=== PATIENT | female | born 1985 | race Caucasian/White ===

== ENCOUNTER 2016-11-08 13:21 | Emergency (ER) | payer OTHER ==
[2016-11-08] MEDS ORDERED: SODIUM CHLORIDE 0.9% 500 ML IV STA (14:12)
--- NOTE | 2016-11-08 14:16 | ED ---
Female Urogenital HPI - General Chief complaint: Vaginal Bleeding Stated complaint: early , spotting Time Seen by Provider: 11/08/16 14:07 Source: patient, RN notes reviewed Mode of arrival: ambulatory Limitations: no limitations - History of Present Illness Initial comments: 31-year-old female presents to the emergency department with a chief complaint of vaginal bleeding in . Patient states she's belly weeks . Patient states she is . Patient states she has been red blood today. Patient states she has been having some achiness in the abdomen as well. Patient denies any nausea vomiting fever or chills. Patient seen changes in urination. Patient states she was concerned due to the blood so she thought that she should be evaluated.Patient denies any recent fever, chills, shortness of breath, chest pain, back pain, nausea vomiting, numbness or tingling, dysuria or hematuria, constipation or diarrhea, headaches or visual changes, or any other current symptoms. - Related Data Home Medications Medication Instructions Recorded Confirmed #79/Iron Asp Gly/FA#1 1 tab PO DAILY 04/19/16 11/08/16 [Prenate Elite Tablet] Acetaminophen/Diphenhydramine 1 tab PO HS PRN 11/08/16 11/08/16 [Tylenol PM 500-25mg] Calcium Carbonate [Tums] 1,000 mg PO TID PRN 11/08/16 11/08/16 Allergies Allergy/AdvReac Type Severity Reaction Status Date / Time peanut Allergy Unknown Verified 11/08/16 14:19 shellfish derived [Shellfish] Allergy Verified 11/08/16 14:19 tree nut Allergy Unknown Verified 11/08/16 14:19 Review of Systems ROS Statement: Those systems with pertinent positive or pertinent negative responses have been documented in the HPI. ROS Other: All systems not noted in ROS Statement are negative. Past Medical History Past Medical History: No Reported History History of Any Multi-Drug Resistant Organisms: None Reported Past Surgical History: No Surgical Hx Reported Past Psychological History: No Psychological Hx Reported Smoking Status: Never smoker Past Alcohol Use History: None Reported Past Drug Use History: None Reported General Exam - General Exam Comments Initial Comments: General: The patient is awake and alert, in no distress, and does not appear acutely ill. Eye: Pupils are equal, round and reactive to light, extra-ocular movements are intact; there is normal conjunctiva bilaterally. No signs of icterus. Ears, nose, mouth and throat: There are moist mucous membranes and no oral lesions. Neck: The neck is supple, there is no tenderness. Cardiovascular: There is a regular rate and rhythm. No murmur, rub or gallop is appreciated. Respiratory: Lungs are clear to auscultation, respirations are non-labored, breath sounds are equal. No wheezes, stridor, rales, or rhonchi. Gastrointestinal: Soft, non-distended, non-tender abdomen without masses or organomegaly noted. There is no rebound or guarding present. No CVA tenderness. Bowel sounds are unremarkable. Back: There is no tenderness to palpation in the midline. There is no obvious deformity. No rashes noted. Musculoskeletal: Normal ROM, no tenderness, There is no pedal edema. There is no calf tenderness or swelling. Sensation intact. Pulses equal bilaterally 2+. Neurological: CN II-XII intact, There are no obvious motor or sensory deficits. Coordination appears grossly intact. Speech is normal. Skin: Skin is warm and dry and no rashes or lesions are noted. Psychiatric: Cooperative, appropriate mood & affect, normal judgment. Limitations: no limitations External exam: Present: normal external exam Speculum exam: Present: vaginal bleeding (Moderate), other (Was closed) Course Vital Signs 11/08/16 14:04 Temperature 98.5 F Pulse Rate 65 Respiratory 18 Rate Blood Pressure 130/64 O2 Sat by Pulse 100 Oximetry Medical Decision Making - Medical Decision Making 31-year-old female presents to the emergency department with a chief complaint of vaginal bleeding in . At this time patient's lab work and ultrasound was reviewed that showed a IUP. At this time we did discuss Tylenol for pain control and follow-up with [facility]. We discussed this is most likely threatened miscarriage and appropriate follow-up with her doctor. Patient stated that she understood all her questions have been answered. This time she will be discharged. - Lab Data Result diagrams: 11/08/16 14:39 11/08/16 14:39 Lab Results 11/08/16 11/08/16 11/08/16 Range/Units 14:39 14:39 14:39 WBC 10.4 (3.8-10.6) k/uL RBC 3.98 (3.80-5.40) m/uL Hgb 12.3 (11.4-16.0) gm/dL Hct 36.7 (34.0-46.0) % MCV 92.3 (80.0-100.0) fL MCH 30.8 (25.0-35.0) pg MCHC 33.4 (31.0-37.0) g/dL RDW 12.6 (11.5-15.5) % Plt Count 248 (150-450) k/uL Neutrophils % 79 % Lymphocytes % 15 % Monocytes % 5 % Eosinophils % 1 % Basophils % 0 % Neutrophils # 8.2 H (1.3-7.7) k/uL Lymphocytes # 1.5 (1.0-4.8) k/uL Monocytes # 0.5 (0-1.0) k/uL Eosinophils # 0.1 (0-0.7) k/uL Basophils # 0.0 (0-0.2) k/uL Sodium 138 (137-145) mmol/L Potassium 3.9 (3.5-5.1) mmol/L Chloride 104 (98-107) mmol/L Carbon Dioxide 21 L (22-30) mmol/L Anion Gap 13 mmol/L BUN 6 L (7-17) mg/dL Creatinine 0.48 L (0.52-1.04) mg/dL Est GFR (MDRD) Af Amer >60 (>60 ml/min/1.73 sqM) Est GFR (MDRD) Non-Af >60 (>60 ml/min/1.73 sqM) Glucose 83 (74-99) mg/dL Calcium 9.2 (8.4-10.2) mg/dL Total Bilirubin 0.5 (0.2-1.3) mg/dL AST 25 (14-36) U/L ALT 42 (9-52) U/L Alkaline Phosphatase 49 (38-126) U/L Total Protein 7.8 (6.3-8.2) g/dL Albumin 4.3 (3.5-5.0) g/dL HCG, Quant 732842.0 mIU/mL Urine Color Urine Appearance (Clear) Urine pH (5.0-8.0) Ur Specific [place] (1.001-1.035) Urine Protein (Negative) Urine Glucose (UA) (Negative) Urine Ketones (Negative) Urine Blood (Negative) Urine Nitrate (Negative) Urine Bilirubin (Negative) Urine Urobilinogen (<2.0) mg/dL Ur Leukocyte Esterase (Negative) Urine RBC (0-5) /hpf Urine WBC (0-5) /hpf Ur Squamous Epith Cells (0-4) /hpf Urine Bacteria (None) /hpf Urine Mucus (None) /hpf Urine HCG, Qual (Not Detectd) Blood Type A Positive Blood Type Recheck No 11/08/16 11/08/16 Range/Units 15:30 16:03 WBC (3.8-10.6) k/uL RBC (3.80-5.40) m/uL Hgb (11.4-16.0) gm/dL Hct (34.0-46.0) % MCV (80.0-100.0) fL MCH (25.0-35.0) pg MCHC (31.0-37.0) g/dL RDW (11.5-15.5) % Plt Count (150-450) k/uL Neutrophils % % Lymphocytes % % Monocytes % % Eosinophils % % Basophils % % Neutrophils # (1.3-7.7) k/uL Lymphocytes # (1.0-4.8) k/uL Monocytes # (0-1.0) k/uL Eosinophils # (0-0.7) k/uL Basophils # (0-0.2) k/uL Sodium (137-145) mmol/L Potassium (3.5-5.1) mmol/L Chloride (98-107) mmol/L Carbon Dioxide (22-30) mmol/L Anion Gap mmol/L BUN (7-17) mg/dL Creatinine (0.52-1.04) mg/dL Est GFR (MDRD) Af Amer (>60 ml/min/1.73 sqM) Est GFR (MDRD) Non-Af (>60 ml/min/1.73 sqM) Glucose (74-99) mg/dL Calcium (8.4-10.2) mg/dL Total Bilirubin (0.2-1.3) mg/dL AST (14-36) U/L ALT (9-52) U/L Alkaline Phosphatase (38-126) U/L Total Protein (6.3-8.2) g/dL Albumin (3.5-5.0) g/dL HCG, Quant mIU/mL Urine Color Yellow Urine Appearance Clear (Clear) Urine pH 6.5 (5.0-8.0) Ur Specific [place] 1.017 (1.001-1.035) Urine Protein Negative (Negative) Urine Glucose (UA) Negative (Negative) Urine Ketones 2+ H (Negative) Urine Blood Large H (Negative) Urine Nitrate Negative (Negative) Urine Bilirubin Negative (Negative) Urine Urobilinogen <2.0 (<2.0) mg/dL Ur Leukocyte Esterase Negative (Negative) Urine RBC 12 H (0-5) /hpf Urine WBC 1 (0-5) /hpf Ur Squamous Epith Cells 1 (0-4) /hpf Urine Bacteria Rare H (None) /hpf Urine Mucus Occasional H (None) /hpf Urine HCG, Qual Detected (Not Detectd) Blood Type Blood Type Recheck - Radiology Data Radiology results: report reviewed, image reviewed Disposition Clinical Impression: Threatened Disposition: HOME SELF-CARE Condition: Stable Instructions: Threatened Miscarriage (ED) Additional Instructions: Please use medication as discussed. Please follow up with family doctor if symptoms have not improved over the next two days. Please return to the emergency room if your symptoms increase or worsen or for any other concerns. Referrals: Thiago Everett DO [Primary Care Provider] - 1-2 days Time of Disposition: 17:24
[2016-11-08 14:52] LABS: Basophils % (A) 0 %; CH 31.6; CHCM 34.4; Eosinophils # (A) 0.1 k/uL (0-0.7); Eosinophils % (A) 1 %; HCT 36.7 % (34.0-46.0); HDW 2.28; HGB 12.3 gm/dL (11.4-16.0); Luc # (Auto) 0.07; Luc % (Auto) 1; Lymphocytes # (A) 1.5 k/uL (1.0-4.8); Lymphocytes % (A) 15 %; MCH 30.8 pg (25.0-35.0); MCHC 33.4 g/dL (31.0-37.0); MCV 92.3 fL (80.0-100.0); Mean Platelet Volume 7.6; Monocytes # (A) 0.5 k/uL (0-1.0); Monocytes % (A) 5 %; Neutrophils # (A) 8.2 k/uL (1.3-7.7); Neutrophils % (A) 79 %; RBC 3.98 m/uL (3.80-5.40); RDW 12.6 % (11.5-15.5); WBC 10.4 k/uL (3.8-10.6); WBC (Perox) 10.39
[2016-11-08 15:03] LABS: ALT 42 U/L (9-52); AST 25 U/L (14-36); Alkaline Phosphatase 49 U/L (38-126); Anion Gap 13 mmol/L; Blood Urea Nitrogen 6 mg/dL (7-17); Calcium 9.2 mg/dL (8.4-10.2); Carbon Dioxide 21 mmol/L (22-30); Chloride 104 mmol/L (98-107); Glucose 83 mg/dL (74-99); Non-African American GFR(MDRD) >60 (>60 ml/min/1.73 sqM); Potassium 3.9 mmol/L (3.5-5.1); Sodium 138 mmol/L (137-145); Total Bilirubin 0.5 mg/dL (0.2-1.3); Total Protein 7.8 g/dL (6.3-8.2)
--- NOTE | 2016-11-08 16:08 | US ---
EXAMINATION TYPE: US OB <= 14 wk fetus DATE OF EXAM: 11/08/2016 3:46 PM COMPARISON: NONE CLINICAL HISTORY: Pain. Spotting, cramping EXAM PERFORMED: Transabdominal (TA) EXAM MEASUREMENTS: GESTATIONAL AGE / DATING Dates by LMP: (7 weeks/3 days) EDC: 06/24/2017 Dates by Current Scan: ( 8 weeks/1 days) EDC: 06/19/2017 MATERNAL ANATOMY Uterus: 9.6 x 6.1 x 5.8 cm Right Ovary: 3.1 x 2.3 x 1.7 cm Left Ovary: 2.3 x 1.6 x 1.5 cm Post CDS / Adnexa: no free fluid GESTATION / SURVEY CRL: 1.7 cm (8 weeks/1 days) MSD: not measured Yolk Sac (normal less than 6mm): 2.6 mm Heart Rate: 174 bpm Rhythm: Normal IUP: Viable IUP Date of LMP: 09/17/2016, G1 Beta HcG (if available): not available TECHNOLOGIST IMPRESSION: Live IUP measuring 8 weeks 1 day. Midline fibroid= 1.4 x 1.3 x 1.1 cm Grayscale, color Doppler imaging performed of the ovaries. There is color flow to the ovaries. IMPRESSION: Single viable intrauterine corresponding to ultrasound age 8 weeks 1 day with estimated juanito e of delivery second of June 2017. There may be a small fibroid.
[2016-11-08 16:17] LABS: Appearance,Urine Clear (Clear); Bacteria,Urine Rare /hpf; Bilirubin,Urine Negative (Negative); Glucose,Urine (UA) Negative (Negative); Ketones,Urine 2+ (Negative); Leukocyte Esterase,Urine Negative (Negative); Mucus,Urine Occasional /hpf; Nitrite,Urine Negative (Negative); PH, Urine 6.5 (5.0-8.0); Particle Count 3690; Protein,Urine Negative (Negative); RBC,Urine 12 /hpf (0-5); Specific Gravity,Urine 1.017 (1.001-1.035); Squamous Epithelial Cell,Urine 1 /hpf (0-4); UA Billing (MACRO vs. MICRO) MICRO; Urobilinogen,Urine <2.0 mg/dL (<2.0); WBC,Urine 1 /hpf (0-5)
[2016-11-08 16:29] VITALS: TEMP 98.5
[2016-11-08 17:38] VITALS: BP 130/77; PULSE 79; RESP 16
== END 2016-11-08 17:39 | disposition home or self-care (01) ==
LOC: EC 13:21
DX: O20.0 Threatened abortion (principal); Z3A.08 8 weeks gestation of pregnancy; Z91.013 Allergy to seafood; Z91.010 Allergy to peanuts; Z91.018 Allergy to other foods
CPT/HCPCS: 36415; 76801; 80053; 81001; 81025; 84702; 85025; 86900; 86901; 87086; 96360; 96361; 99284

== ENCOUNTER 2017-01-19 18:32 | Emergency (ER) | payer BC, OTHER ==
[2017-01-19 19:30] VITALS: RESP 18
[2017-01-19] MEDS ORDERED: METOCLOPRAMIDE 5 MG/ML 2 ML VIAL IVP STA (21:46)
[2017-01-19] MEDS ORDERED: ACETAMINOPHEN IV (For NPO) 1,000 MG in SALINE 1 100ML.BAG IVPB STA (21:46)
[2017-01-19] MEDS ORDERED: SODIUM CHLORIDE 0.9% 1,000 ML IV STA (21:46)
--- NOTE | 2017-01-19 21:50 | ED ---
General Adult HPI - General Chief complaint: Headache Stated complaint: headache Time Seen by Provider: 01/19/17 21:42 Source: patient, RN notes reviewed Mode of arrival: ambulatory Limitations: no limitations - History of Present Illness Initial comments: Patient is a pleasant 31-year-old female presenting to the emergency Department with complaints of headache. Headache is more posterior. Headache started around 6 AM this morning. Headache has been waxing and waning however has been somewhat increasing since around 4:30. Headache is positional. Mild photophobia. No nausea except her chronic nausea with . Patient is 17 weeks gravid. No confusion. No weakness. Patient has not taking any medication at home for this. Patient does have a history of associated headaches. Discomfort is currently rated 5/10. No pelvic pain or vaginal bleeding. - Related Data Home Medications Medication Instructions Recorded Confirmed #79/Iron Asp Gly/FA#1 1 tab PO HS 04/19/16 01/19/17 [Prenate Elite Tablet] Acetaminophen Tab [Tylenol Tab] 325 - 650 mg PO Q6H PRN 01/19/17 01/19/17 Metoclopramide [Reglan] 10 mg PO QID PRN 01/19/17 01/19/17 Allergies Allergy/AdvReac Type Severity Reaction Status Date / Time peanut Allergy Anaphylaxis Verified 01/19/17 22:03 shellfish derived [Shellfish] Allergy Nausea & Verified 01/19/17 22:03 Vomiting & Diarrhea tree nut Allergy Anaphylaxis Verified 01/19/17 22:03 Review of Systems ROS Statement: Those systems with pertinent positive or pertinent negative responses have been documented in the HPI. ROS Other: All systems not noted in ROS Statement are negative. Constitutional: Denies: fever, chills Eyes: Denies: eye pain ENT: Denies: ear pain Respiratory: Denies: cough Cardiovascular: Denies: chest pain Endocrine: Denies: fatigue Gastrointestinal: Denies: abdominal pain Genitourinary: Denies: dysuria Musculoskeletal: Denies: back pain Skin: Denies: rash Neurological: Reports: headache. Denies: weakness, confusion Past Medical History Past Medical History: No Reported History History of Any Multi-Drug Resistant Organisms: None Reported Past Surgical History: No Surgical Hx Reported Past Psychological History: No Psychological Hx Reported Smoking Status: Never smoker Past Alcohol Use History: None Reported Past Drug Use History: None Reported General Exam Limitations: no limitations General appearance: alert, in no apparent distress Head exam: Present: atraumatic Eye exam: Present: normal appearance, PERRL, EOMI ENT exam: Present: normal oropharynx Neck exam: Present: normal inspection. Absent: meningismus Respiratory exam: Present: normal lung sounds bilaterally Cardiovascular Exam: Present: regular rate, normal rhythm GI/Abdominal exam: Present: soft, distended (Consistent with 17 week gravid uterus.). Absent: tenderness Extremities exam: Present: normal inspection Neurological exam: Present: alert, oriented X3, CN II-XII intact. Absent: motor sensory deficit Expanded Speech: Present: fluid speech Cranial nerves: EOM's Intact: Normal Motor strength exam: RUE: 5, LUE: 5, RLE: 5, LLE: 5 Eye Response: (4) open spontaneously Motor Response: (6) obeys commands Verbal Response: (5) oriented Psychiatric exam: Present: normal affect, normal mood Skin exam: Absent: rash Course Vital Signs 01/19/17 19:26 Temperature 97.9 F Pulse Rate 81 Respiratory 18 Rate Blood Pressure 148/71 O2 Sat by Pulse 99 Oximetry Medical Decision Making - Medical Decision Making Patient reevaluated and significantly improved. Patient comfortable discharge. Patient will be discharged pending heart tones Disposition Clinical Impression: Cephalgia Disposition: HOME SELF-CARE Condition: Stable Instructions: Acute Headache (ED) Additional Instructions: Please follow-up with your ENVIRONMENTAL SCIENCE PROFESSOR and primary care physician this week. Return for weakness, confusion, fevers, increased pain, uncontrolled vomiting, worsening symptoms or other concerns. Referrals: None,Stated [Primary Care Provider] - 1-2 days Esteban Constantino MD [STAFF PHYSICIAN] - 1-2 days Lizzeth Cee MD [STAFF PHYSICIAN] - 1-2 days
[2017-01-19 23:18] VITALS: BP 117/68; PULSE 65; TEMP 97.8
== END 2017-01-19 23:27 | disposition home or self-care (01) ==
LOC: EC 18:32
DX: O99.89 Other specified diseases and conditions complicating pregnancy, childbirth and the puerperium (principal); R51 Headache; H53.149 Visual discomfort, unspecified; R11.0 Nausea; Z3A.17 17 weeks gestation of pregnancy; Z79.899 Other long term (current) drug therapy; Z91.013 Allergy to seafood; Z91.018 Allergy to other foods
CPT/HCPCS: 99283; 96374; 96375; 96361; J2765; J0131

== ENCOUNTER 2017-03-11 09:34 | Outpatient (CLI) | payer BC, OTHER ==
[2017-03-11 10:57] LABS: Appearance,Urine Clear (Clear); Bilirubin,Urine Negative (Negative); Glucose,Urine (UA) Negative (Negative); Ketones,Urine Negative (Negative); Leukocyte Esterase,Urine Negative (Negative); Nitrite,Urine Negative (Negative); Protein,Urine Negative (Negative); Specific Gravity,Urine 1.003 (1.001-1.035); UA Billing (MACRO vs. MICRO) CHEM; Urobilinogen,Urine <2.0 mg/dL (<2.0)
[2017-03-11 11:08] VITALS: BP 117/60; PULSE 84; RESP 16; TEMP 97.3
== END 2017-03-11 11:50 | disposition home or self-care (01) ==
LOC: FBPOP 09:34
PROVIDERS: ATTEND Obstetrics & Gynecology
DX: O26.92 Pregnancy related conditions, unspecified, second trimester (principal); Z3A.25 25 weeks gestation of pregnancy
CPT/HCPCS: 81003; 99213

== ENCOUNTER 2017-03-24 15:55 | Outpatient (CLI) | payer BC, OTHER ==
[2017-03-24 17:39] VITALS: BP 136/71; PULSE 83; RESP 16; TEMP 98.3
== END 2017-03-24 17:05 | disposition home or self-care (01) ==
LOC: FBPOP 15:55
PROVIDERS: ATTEND Obstetrics & Gynecology
DX: O26.92 Pregnancy related conditions, unspecified, second trimester (principal); Z3A.26 26 weeks gestation of pregnancy
CPT/HCPCS: 99213

== ENCOUNTER 2017-04-28 14:55 | Outpatient (CLI) | payer BC, OTHER ==
[2017-04-28 16:06] VITALS: BP 135/77; PULSE 100; RESP 20; TEMP 98.6
--- NOTE | 2017-06-25 11:07 | P.MSEPDOC ---
Presenting Problems - Arrival Data Date of Arrival on Unit: 04/28/17 Time of Arrival on Unit: 14:55 Mode of Transport: Ambulatory - Complaint OB-Reason for Admission/Chief Complaint: NST Comment: decreased movement Medical History - Information : 1 Para: 0 Term: 0 : 0 Abortions: Spontaneous or Elective: 0 Number of Living Children: 0 - Gestational Age Expected Date of Delivery: 06/24/17 Gestational Age by APRIL (wks/days): 40 Weeks and 1 Days Review of Systems - Review of Systems Constitutional: No problems Breast: No problems ENT: No problems Cardiovascular: No problems Respiratory: No problems Gastrointestinal: No problems Genitourinary: No problems Musculoskeletal: No problems Neurological: No problems Skin: No problems Vital Signs - Temperature Temperature: 98.6 F Temperature Source: Oral - Pulse Brachial Pulse Rate: 100 Pulse Assessment Method: Automatic Cuff - Respirations Respiratory Rate: 20 Oxygen Delivery Method: Room Air O2 Sat by Pulse Oximetry: 98 - Blood Pressure Right Arm Blood Pressure: 135/77 Blood Pressure Mean: 96 Blood Pressure Source: Automatic Cuff Medical Screen Scoring (Pre) - Cervical Exam Dilation: Exam Deferred Effacement: Exam Deferred Membranes: Intact - Uterine Contractions Frequency: N/A Duration: N/A Intensity: N/A - Maternal Vital Signs Maternal Temperature: N/A Maternal Blood Pressure: N/A Signs of Preeclampsia: N/A Maternal Respirations: N/A - Maternal Trauma Maternal Trauma: N/A - Assessment Baseline FHR: 140 Heart Rate - NICHD Category: Category I (Normal) = 0 NST: Reactive Position: N/A Station: N/A - Total Score Total Score (Pre): 0 - Level of Risk Level of Risk: N/A Medical Screen Scoring (Post) - Assessment Heart Rate - NICHD Category: Category I (Normal) = 0 - Total Score Total Score (Post): 0 - Post Treatment Level of Risk Post Treatment Level of Risk: N/A Physician Notification (Post) - Physician Notified Physician Notified Date: 04/28/17 Physician Notified Time: 15:25 Physician/Practitioner Notified:: dr johnson New Order Received: Yes - Notification Comment Comment: Discharge home Disposition - Disposition OB Disposition: Triage, Discharge to home, Written follow up instructions reviewed Discharge Date: 07/12/17 Discharge Time: 15:43 I agree with the RN Medical Screening Exam: No Physician's MSE Comment: The patient was not 40 and one sevenths weeks at the time of presentation. The remainder of the MSE is accurate. Risk & Benefit of care provided described in d/c instruction: Yes Diagnosis: RELATED CONDITIONS, UNSPECIFIED, THIRD TRIMESTER
== END 2017-04-28 15:43 | disposition home or self-care (01) ==
LOC: FBPOP 14:55
PROVIDERS: ATTEND Obstetrics & Gynecology
DX: O26.93 Pregnancy related conditions, unspecified, third trimester (principal); Z3A.40 40 weeks gestation of pregnancy
CPT/HCPCS: 59025; 99213

== ENCOUNTER 2017-05-20 18:55 | Outpatient (CLI) | payer BC, OTHER ==
[2017-05-20 19:12] LABS: Appearance,Urine Clear (Clear); Bilirubin,Urine Negative (Negative); Glucose,Urine (UA) Negative (Negative); Ketones,Urine 1+ (Negative); Leukocyte Esterase,Urine Negative (Negative); Nitrite,Urine Negative (Negative); PH, Urine 6.5 (5.0-8.0); Protein,Urine Negative (Negative); Specific Gravity,Urine 1.009 (1.001-1.035); UA Billing (MACRO vs. MICRO) CHEM; Urobilinogen,Urine <2.0 mg/dL (<2.0)
[2017-05-20] MEDS ORDERED: DEXTROSE 5%-LACTATED RINGERS 1,000 ML IV ONE (20:00)
[2017-05-20 20:17] LABS: Basophils % (A) 0 %; CH 31.7; CHCM 33.7; Eosinophils # (A) 0.2 k/uL (0-0.7); Eosinophils % (A) 1 %; HCT 35.5 % (34.0-46.0); HDW 2.72; HGB 12.1 gm/dL (11.4-16.0); Luc # (Auto) 0.16; Luc % (Auto) 1; Lymphocytes # (A) 1.5 k/uL (1.0-4.8); Lymphocytes % (A) 10 %; MCH 32.2 pg (25.0-35.0); MCV 94.7 fL (80.0-100.0); Mean Platelet Volume 7.9; Monocytes # (A) 0.5 k/uL (0-1.0); Monocytes % (A) 3 %; Neutrophils # (A) 12.8 k/uL (1.3-7.7); Neutrophils % (A) 84 %; RBC 3.75 m/uL (3.80-5.40); RDW 13.9 % (11.5-15.5); WBC 15.2 k/uL (3.8-10.6); WBC (Perox) 16.46
[2017-05-20 20:25] LABS: Uric Acid 4.3 mg/dL (3.7-7.4)
[2017-05-20 20:28] VITALS: BP 131/66; PULSE 77; RESP 18; TEMP 96.7
--- NOTE | 2017-06-04 07:30 | P.MSEPDOC ---
Presenting Problems - Arrival Data Date of Arrival on Unit: 05/20/17 Time of Arrival on Unit: 18:55 Mode of Transport: Wheelchair - Complaint OB-Reason for Admission/Chief Complaint: Acute Nausea/Vomiting, Headache, Other Comment: back pain Medical History - Information : 1 Para: 0 Term: 0 : 0 Abortions: Spontaneous or Elective: 0 Number of Living Children: 0 - Gestational Age Expected Date of Delivery: 06/24/17 Gestational Age by APRIL (wks/days): 37 Weeks and 1 Days Review of Systems - Review of Systems Constitutional: No problems Breast: No problems ENT: No problems Cardiovascular: No problems Respiratory: No problems Gastrointestinal: Pain Genitourinary: No problems Musculoskeletal: No problems Neurological: No problems Skin: No problems Vital Signs - Temperature Temperature: 96.7 F Temperature Source: Temporal Artery Scan - Pulse Pulse Oximetery Pulse Rate: 77 Pulse Assessment Method: Automatic Cuff - Respirations Respiratory Rate: 18 Oxygen Delivery Method: Room Air O2 Sat by Pulse Oximetry: 100 - Blood Pressure Right Arm Blood Pressure: 131/66 Blood Pressure Mean: 87 Blood Pressure Source: Automatic Cuff Medical Screen Scoring (Pre) - Cervical Exam Dilation: 1-3 cm = 1 Membranes: Intact - Uterine Contractions Frequency: > 5 minutes apart = 1 Duration: N/A Intensity: N/A - Maternal Vital Signs Maternal Temperature: N/A Maternal Blood Pressure: Systolic >139 = 2 Signs of Preeclampsia: Headache = 1, Nausea/Vomiting = 1, Epigastric Pain = 1 Maternal Respirations: N/A - Maternal Trauma Maternal Trauma: N/A - Assessment Baseline FHR: 130 Heart Rate - NICHD Category: Category I (Normal) = 0 NST: Reactive Position: N/A Station: N/A - Total Score Total Score (Pre): 7 - Level of Risk Level of Risk: Medium (6-9) Physician Notification (Pre) - Physician Notified Physician Notified Date: 05/20/17 Physician Notified Time: 19:44 Physician/Practitioner Notifed:: Dr. Echavarria Spoke With: Dr. Echavarria New Order Received: Yes Medical Screen Scoring (Post) - Cervical Exam Dilation: Exam Deferred Effacement: Exam Deferred - Uterine Contractions Frequency: > 5 minutes apart = 1 Duration: N/A Intensity: N/A - Maternal Vital Signs Maternal Temperature: N/A Maternal Blood Pressure: N/A Signs of Preeclampsia: N/A Maternal Respirations: N/A - Maternal Trauma Maternal Trauma: N/A - Assessment Heart Rate: 130 Heart Rate - NICHD Category: Category I (Normal) = 0 NST: Reactive Position: N/A Station: N/A - Total Score Total Score (Post): 1 - Post Treatment Level of Risk Post Treatment Level of Risk: Low (0-5) Physician Notification (Post) - Physician Notified Physician Notified Date: 05/20/17 Physician Notified Time: 20:38 Physician/Practitioner Notified:: Dr. Echavarria Spoke With: Dr. Echavarria New Order Received: Yes - Notification Comment Comment: pt treated with D5LR iv bolus and cbc, uric acid, ast, and alt drawn and results reported to Dr. Echavarria, pt to return home on 24 hour urine collection starting tomorrow morning, bring to lab on Sat morning and remain on bedrest till follow up done on Wednesday in office Disposition - Disposition OB Disposition: Triage Discharge Date: 05/20/17 Discharge Time: 21:15 I agree with the RN Medical Screening Exam: Yes Risk & Benefit of care provided described in d/c instruction: Yes Diagnosis: ECHO VIRUS MENINGITIS
== END 2017-05-20 21:15 | disposition home or self-care (01) ==
LOC: FBPOP 18:55
PROVIDERS: ATTEND Obstetrics & Gynecology
DX: O98.52 Other viral diseases complicating childbirth (principal); A87.0 Enteroviral meningitis; O26.613 Liver and biliary tract disorders in pregnancy, third trimester; Z3A.37 37 weeks gestation of pregnancy
CPT/HCPCS: 59025; 81003; 84450; 84460; 84550; 85025; 96360; 99215

== ENCOUNTER 2017-05-26 14:48 | Outpatient (CLI) | payer BC, OTHER ==
[2017-05-26 15:28] VITALS: PULSE 100; RESP 16; TEMP 98.5
[2017-05-26 15:39] LABS: Appearance,Urine Cloudy (Clear); Bacteria,Urine Occasional /hpf; Bilirubin,Urine Negative (Negative); Glucose,Urine (UA) Negative (Negative); Ketones,Urine Negative (Negative); Leukocyte Esterase,Urine Large (Negative); Mucus,Urine Rare /hpf; Nitrite,Urine Negative (Negative); PH, Urine 6.5 (5.0-8.0); Particle Count 10369; Protein,Urine Negative (Negative); RBC,Urine 2 /hpf (0-5); Specific Gravity,Urine 1.013 (1.001-1.035); Squamous Epithelial Cell,Urine 4 /hpf (0-4); UA Billing (MACRO vs. MICRO) MICRO; Urobilinogen,Urine <2.0 mg/dL (<2.0); WBC,Urine 4 /hpf (0-5)
[2017-05-26 15:57] LABS: Basophils % (A) 0 %; CH 31.8; CHCM 33.4; Eosinophils # (A) 0.1 k/uL (0-0.7); Eosinophils % (A) 1 %; HCT 35.8 % (34.0-46.0); HDW 2.63; HGB 11.7 gm/dL (11.4-16.0); Luc # (Auto) 0.17; Luc % (Auto) 2; Lymphocytes # (A) 1.4 k/uL (1.0-4.8); Lymphocytes % (A) 12 %; MCH 31.2 pg (25.0-35.0); MCHC 32.6 g/dL (31.0-37.0); MCV 95.6 fL (80.0-100.0); Mean Platelet Volume 8.1; Monocytes # (A) 0.6 k/uL (0-1.0); Monocytes % (A) 5 %; Neutrophils # (A) 9.4 k/uL (1.3-7.7); Neutrophils % (A) 81 %; RBC 3.75 m/uL (3.80-5.40); RDW 13.2 % (11.5-15.5); WBC 11.7 k/uL (3.8-10.6); WBC (Perox) 12.34
[2017-05-26 16:05] LABS: Uric Acid 4.9 mg/dL (3.7-7.4)
[2017-05-26 16:54] VITALS: BP 108/52
--- NOTE | 2017-06-14 12:23 | P.MSEPDOC ---
Presenting Problems - Arrival Data Date of Arrival on Unit: 05/26/17 Time of Arrival on Unit: 15:20 Mode of Transport: Ambulatory - Complaint OB-Reason for Admission/Chief Complaint: PIH, Elevated Blood Pressure, Dizziness Medical History - Information : 1 Para: 0 Term: 0 : 0 Abortions: Spontaneous or Elective: 0 Number of Living Children: 0 - Gestational Age Expected Date of Delivery: 06/24/17 Gestational Age by APRIL (wks/days): 38 Weeks and 4 Days Review of Systems - Review of Systems Constitutional: No problems Breast: No problems ENT: No problems Cardiovascular: No problems Respiratory: No problems Gastrointestinal: No problems Genitourinary: No problems Musculoskeletal: No problems Neurological: No problems Skin: No problems Vital Signs - Temperature Temperature: 98.5 F Temperature Source: Oral - Pulse Supine Pulse Rate: 100 Pulse Assessment Method: Automatic Cuff - Respirations Respiratory Rate: 16 Oxygen Delivery Method: Room Air - Blood Pressure Right Arm Blood Pressure: 108/52 Blood Pressure Mean: 70 Blood Pressure Source: Automatic Cuff Medical Screen Scoring (Pre) - Cervical Exam Dilation: Exam Deferred - Uterine Contractions Frequency: N/A Duration: N/A Intensity: N/A - Maternal Vital Signs Maternal Temperature: N/A Maternal Respirations: N/A - Maternal Trauma Maternal Trauma: N/A - Assessment Baseline FHR: 140 Heart Rate - NICHD Category: Category I (Normal) = 0 NST: Reactive - Total Score Total Score (Pre): 0 - Level of Risk Level of Risk: Low (0-5) Physician Notification (Pre) - Physician Notified Physician Notified Date: 05/26/17 Physician Notified Time: 15:27 Physician/Practitioner Notifed:: DR YE New Order Received: Yes - Notification Comment Comment: ADMISSION TO TRIAGE ORDERS GIVEN Medical Screen Scoring (Post) - Cervical Exam Dilation: 1-3 cm = 1 - Uterine Contractions Frequency: N/A - Maternal Vital Signs Maternal Temperature: N/A Maternal Respirations: N/A - Maternal Trauma Maternal Trauma: N/A - Assessment Heart Rate: 130 Heart Rate - NICHD Category: Category I (Normal) = 0 NST: Reactive Position: N/A - Total Score Total Score (Post): 1 - Post Treatment Level of Risk Post Treatment Level of Risk: Low (0-5) Physician Notification (Post) - Physician Notified Physician Notified Date: 05/26/17 Physician Notified Time: 16:53 Physician/Practitioner Notified:: dr [email or web address] New Order Received: Yes - Notification Comment Comment: pt to discharge home Disposition - Disposition OB Disposition: Discharge to home, Written follow up instructions reviewed Discharge Date: 05/26/17 Discharge Time: 16:53 I agree with the RN Medical Screening Exam: No Physician's MSE Comment: incomplete documentation Risk & Benefit of care provided described in d/c instruction: No Diagnosis: 36 WEEKS GESTATION OF
== END 2017-05-26 16:54 | disposition home or self-care (01) ==
LOC: FBPOP 14:48
PROVIDERS: ATTEND Obstetrics & Gynecology
DX: O99.89 Other specified diseases and conditions complicating pregnancy, childbirth and the puerperium (principal); R42 Dizziness and giddiness; R03.0 Elevated blood-pressure reading, without diagnosis of hypertension; Z3A.36 36 weeks gestation of pregnancy
CPT/HCPCS: 59025; 81001; 84450; 84460; 84550; 85025; 99215

== ENCOUNTER 2017-05-27 17:42 | Outpatient (CLI) | payer BC, OTHER ==
[2017-05-27 17:56] VITALS: BP 140/84; PULSE 72; RESP 16; TEMP 98.2
[2017-05-27 19:05] LABS: 24-hr Urine Specific Gravity 1.009 (1.001-1.035)
--- NOTE | 2017-06-12 13:24 | P.MSEPDOC ---
Presenting Problems - Arrival Data Date of Arrival on Unit: 05/27/17 Time of Arrival on Unit: 17:40 Mode of Transport: Ambulatory - Complaint OB-Reason for Admission/Chief Complaint: NST, Other Comment: returning for NST blood pressure check and results of 24 hour urine. Medical History - Information : 1 Para: 0 Term: 0 : 0 Abortions: Spontaneous or Elective: 0 Number of Living Children: 0 - Gestational Age Expected Date of Delivery: 06/24/17 Gestational Age by APRIL (wks/days): 38 Weeks and 2 Days Review of Systems - Review of Systems Constitutional: No problems Breast: No problems ENT: No problems Cardiovascular: No problems Respiratory: No problems Gastrointestinal: No problems Genitourinary: No problems Musculoskeletal: No problems Neurological: No problems Skin: No problems Vital Signs - Temperature Temperature: 98.2 F Temperature Source: Oral - Pulse Right Brachial Pulse Rate: 72 Pulse Assessment Method: Automatic Cuff - Respirations Respiratory Rate: 16 Oxygen Delivery Method: Room Air - Blood Pressure Right Arm Blood Pressure: 140/84 Blood Pressure Mean: 102 Blood Pressure Source: Automatic Cuff Medical Screen Scoring (Pre) - Cervical Exam Dilation: Exam Deferred Effacement: Exam Deferred - Uterine Contractions Frequency: N/A Duration: N/A Intensity: N/A - Maternal Vital Signs Maternal Temperature: N/A Maternal Blood Pressure: N/A Signs of Preeclampsia: Nausea/Vomiting = 1 Maternal Respirations: N/A - Maternal Trauma Maternal Trauma: N/A - Assessment Baseline FHR: 150 Heart Rate - NICHD Category: Category I (Normal) = 0 Position: N/A Station: N/A - Total Score Total Score (Pre): 1 - Level of Risk Level of Risk: Low (0-5) Physician Notification (Post) - Physician Notified Physician Notified Date: 05/27/17 Physician Notified Time: 19:00 Physician/Practitioner Notified:: Johnnie Spoke With: Johnnie New Order Received: No - Notification Comment Comment: pt discharged home Disposition - Disposition OB Disposition: Discharge to home Discharge Date: 05/27/17 Discharge Time: 19:00 I agree with the RN Medical Screening Exam: Yes Risk & Benefit of care provided described in d/c instruction: Yes Diagnosis: RELATED CONDITIONS, UNSPECIFIED, THIRD TRIMESTER
== END 2017-05-27 19:01 | disposition home or self-care (01) ==
LOC: FBPOP 17:42
PROVIDERS: ATTEND Obstetrics & Gynecology
DX: O26.893 Other specified pregnancy related conditions, third trimester (principal); Z3A.38 38 weeks gestation of pregnancy
CPT/HCPCS: 59025; 81050; 84156; 99213

== ENCOUNTER → 2017-06-04 | Outpatient (CLI) | payer BC, OTHER ==
[2017-06-04 17:40] LABS: CH 31.9; CHCM 33.7; HCT 35.8 % (34.0-46.0); HDW 2.54; HGB 11.7 gm/dL (11.4-16.0); MCHC 32.5 g/dL (31.0-37.0); MCV 95.2 fL (80.0-100.0); RBC 3.77 m/uL (3.80-5.40); RDW 13.4 % (11.5-15.5); WBC 12.9 k/uL (3.8-10.6)
[2017-06-04 18:05] LABS: Uric Acid 4.7 mg/dL (3.7-7.4)
== END | disposition home or self-care (01) ==
LOC: LABWHC1 17:06
PROVIDERS: ATTEND Obstetrics & Gynecology
DX: O13.4 Gestational [pregnancy-induced] hypertension without significant proteinuria, complicating childbirth (principal); Z3A.00 Weeks of gestation of pregnancy not specified
CPT/HCPCS: 36415; 81050; 82575; 84156; 84450; 84460; 84550; 85027

== ENCOUNTER 2017-06-06 05:16 | Inpatient (IN) | payer BC, OTHER ==
[2017-06-06] MEDS ORDERED: TERBUTALINE 1 MG/ML VIAL SQ PRN (06:13)
[2017-06-06] MEDS ORDERED: OXYTOCIN 10 UNIT/ML 1 ML VIAL IM PRN (06:13)
[2017-06-06] MEDS ORDERED: CARBOPROST TROMETHAMINE 250 MCG/ML 1 ML AMP IM PRN (06:13)
[2017-06-06] MEDS ORDERED: METHYLERGONOVINE 0.2 MG/ML 1 ML AMP IM PRN (06:13)
[2017-06-06] MEDS ORDERED: LIDOCAINE 1% (PF) 10 MG/ML (30 ML SDV) SQ PRN (06:13)
[2017-06-06] MEDS ORDERED: OXYTOCIN 20 UNITS/1000 ML NS 1,000 ML IV SCH (06:15)
[2017-06-06 06:26] VITALS: BMI 36.4
[2017-06-06] MEDS: LACTATED RINGERS 1,000 ML IV SCH ×2 (06:28→10:25)
[2017-06-06 06:33] LABS: Basophils % (A) 0 %; CH 31.8; CHCM 33.5; Eosinophils # (A) 0.1 k/uL (0-0.7); Eosinophils % (A) 1 %; HDW 2.55; HGB 11.2 gm/dL (11.4-16.0); Luc # (Auto) 0.15; Luc % (Auto) 1; Lymphocytes # (A) 1.5 k/uL (1.0-4.8); Lymphocytes % (A) 12 %; MCH 31.5 pg (25.0-35.0); MCV 95.5 fL (80.0-100.0); Mean Platelet Volume 8.1; Monocytes # (A) 0.5 k/uL (0-1.0); Monocytes % (A) 4 %; Neutrophils # (A) 9.7 k/uL (1.3-7.7); Neutrophils % (A) 81 %; RBC 3.56 m/uL (3.80-5.40); RDW 13.3 % (11.5-15.5); WBC 12.1 k/uL (3.8-10.6)
[2017-06-06] MEDS ORDERED: BUTORPHANOL 1 MG/ML 1 ML VIAL IV PRN (08:35)
[2017-06-06] MEDS ORDERED: SODIUM CHLORIDE 0.9% 100 ML BAG ONE (10:11)
[2017-06-06] MEDS ORDERED: BUPIVACAINE (PF) 0.25% 30 ML VIAL ONE (10:11)
[2017-06-06] MEDS ORDERED: fentaNYL (PF) 50 MCG/ML 5 ML AMP ONE (10:11)
[2017-06-06] MEDS ORDERED: BUPIVACAINE (PF) 0.25% 25 ML, fentaNYL (PF) 200 MCG in SODIUM CHLORIDE 0.9% 71 ML EPIDURAL ONE (10:46)
--- NOTE | 2017-06-06 14:47 | P.HPOB ---
History of Present Illness H&P Date: 06/06/17 This is a 31-year-old white female 1 para 0 EDC 06/24/2017 at 37-3/7 weeks' gestation. Patient presented to labor and delivery with a complaint of ruptured membranes, clear fluid at 0421 hours. She was having rare mild uterine contractions. She denied vaginal bleeding. Fetus is been active throughout the . She denies any headache, right upper quadrant pain, or visual changes. Past medical history is significant for cystic fibrosis carrier, history of chlamydia 2006, current cultures negative. Past surgical history significant for wisdom teeth extracted. Current medications vitamin D injections weekly, vitamins daily, Reglan 10 mg tablets prior to meals when necessary. ALLERGIES include peanuts shellfish and tree nuts to which she reports severe stomach cramps. No known medical ALLERGIES. Social history patient is single, father of the baby is involved in the . She denies any alcohol or drug use with the . She works for local to a [employer]. She has not ever been a smoker. Family history is significant for diabetes hypertension lymphoma and hypoglycemia. history blood type is A+, rubella status immune. VDRL testing, urine culture, hepatitis B surface antigen, HIV testing, gonorrhea and chlamydia cultures, group B strep cultures all negative. One-hour Glucola 99. has been remarkable for elevated protein noted on 24-hour urine, and intermittently elevated liver enzymes. On exam this is a pleasant young female, 5 foot 5 inches, 219 pounds, blood pressure on admission 126/77, pulse 56, respirations 19, temperature 96.1. The general physical exam is within normal limits. The extremities reveal no edema. On admission cervix is 1 cm dilated, 70% effaced, -2 station, posterior and vertex. Clear fluid is noted on the perineal body. heart rate is consistent with reactive NST. Impression: 37 and 3 weeks intrauterine , here with spontaneous amniorrhexis. Blood pressure stable on admission, intermittent hypertension noted throughout the along with proteinuria. Plan: We will proceed with oxytocin augmentation per hospital protocol. Analgesic options have been reviewed. Close maternal and surveillance. Anticipate normal spontaneous vaginal delivery. Review of Systems As is noted in HPI. Constitutional: Reports as per HPI Past Medical History Past Medical History: No Reported History History of Any Multi-Drug Resistant Organisms: None Reported Past Surgical History: No Surgical Hx Reported Additional Past Surgical History / Comment(s): wisdom teeth Past Anesthesia/Blood Transfusion Reactions: No Reported Reaction Past Psychological History: No Psychological Hx Reported Smoking Status: Never smoker Past Alcohol Use History: None Reported Past Drug Use History: None Reported - Past Family History Mother Additional Family Medical History / Comment(s): Hypoglycemia Medications and Allergies Home Medications Medication Instructions Recorded Confirmed Type 114/Iron A-G/Folate 1 1 tab PO HS 04/19/16 06/06/17 History [Prenate Elite Tablet] Omeprazole Magnesium [Prilosec OTC] 20 mg PO HS 04/28/17 06/06/17 History diphenhydrAMINE HCL [Benadryl] 25 mg PO HS 04/28/17 06/06/17 History Allergies Allergy/AdvReac Type Severity Reaction Status Date / Time peanut Allergy Anaphylaxis Verified 06/06/17 06:12 shellfish derived [Shellfish] Allergy Nausea & Verified 06/06/17 06:12 Vomiting & Diarrhea tree nut Allergy Anaphylaxis Verified 06/06/17 06:12 Exam - Vital Signs Vital signs: Vital Signs Temp Pulse Resp BP Pulse Ox 06/06/17 06:12 96.3 F L 74 18 130/80 100 06/06/17 06:11 96.1 F L 80 17 130/80 99 Intake and Output 06/05/17 06/06/17 06/06/17 22:59 06:59 14:59 Output Total 300 Balance -300 Output: Urine 300 Straight 300 Other: Weight 99.337 kg See dictation under HPI please Results Result Diagrams: 06/06/17 06:20 Abnormal Lab Results - Last 24 Hours (Table) 06/06/17 Range/Units 06:20 WBC 12.1 H (3.8-10.6) k/uL RBC 3.56 L (3.80-5.40) m/uL Hgb 11.2 L (11.4-16.0) gm/dL Neutrophils # 9.7 H (1.3-7.7) k/uL Assessment and Plan Plan: Oxytocin augmentation per hospital protocol. Close maternal and surveillance. Anticipate normal spontaneous vaginal delivery. Analgesic options reviewed with the patient. Time with Patient: Less than 30
[2017-06-06] MEDS ORDERED: ZOLPIDEM 5 MG TAB PO PRN (14:50)
[2017-06-06] MEDS ORDERED: diphenhydrAMINE ELIXIR 25 MG/10 ML CUP PO PRN (14:50)
[2017-06-06] MEDS ORDERED: diphenhydrAMINE 25 MG CAP PO PRN (14:50)
[2017-06-06] MEDS ORDERED: SIMETHICONE 80 MG CHEWABLE PO PRN (14:50)
[2017-06-06] MEDS ORDERED: ACETAMINOPHEN TAB 325 MG TAB PO PRN (14:50)
[2017-06-06] MEDS ORDERED: HYDROCORTISONE 2.5% RECTAL CREAM 30 GM TUBE RECTAL PRN (14:50)
[2017-06-06] MEDS ORDERED: LANOLIN CREAM 5 GM TUBE TOPICAL PRN (14:50)
[2017-06-06] MEDS ORDERED: BENZOCAINE/MENTHOL SPRAY 1 GM/SPRAY AEROSOL TOPICAL PRN (14:50)
[2017-06-06] MEDS ORDERED: WITCH HAZEL 1 EACH MED..PAD TOPICAL PRN (14:50)
[2017-06-06] MEDS ORDERED: diphenhydrAMINE 50 MG CAP PO PRN (14:50)
[2017-06-06] MEDS ORDERED: diphenhydrAMINE 50 MG/ML 1 ML VIAL IVP PRN ×2 (14:50)
--- NOTE | 2017-06-06 14:50 | P.PROBDLV ---
Vaginal Delivery Note - . Vaginal Delivery Note: This is a 31-year-old white female 1 para 0 EDC 06/24/2017 at 37-3/7 weeks' gestation. Patient's was remarkable for intermittent hypertension, and elevated proteinuria noted on 24-hour urine specimens. Fetus is been active throughout the . She presented today with spontaneous amniorrhexis which occurred at home, clear fluid, at 0421 hours. On admission her blood pressure was 126/77. Please see my dictated history and physical for details. Patient was admitted, oxytocin was started and titrated per hospital protocol. She became uncomfortable and requested an epidural, this was placed without difficulty per the anesthesia staff. Blood pressures were within the normal range throughout first and second stages of labor. Patient progressed well and became completely dilated at 1412 hours. The perineal body was prepped and draped in usual sterile fashion. With excellent maternal expulsive efforts the head delivered occiput anterior and the infant restituted accordingly. There was no nuchal cord noted. The left or anterior shoulder was spontaneously delivered from underneath the pubic symphysis at which time the oropharynx, nasopharynx and external nares were all bulb suctioned on the perineal body. Patient was officially delivered of a liveborn female at 1427 hours. Umbilical cord was doubly clamped and ligated, she was handed to waiting nurses for evaluation where scores of 9 and 9 at one and 5 minutes respectively were given. At this time the uterus was massaged. With massage and maternal efforts, placenta delivered spontaneously at 1431 hours. It was inspected, noted to be intact with trivascular cord. At this time the uterus was massaged for good blood control. Inspection of the cervix, vagina, perineum, periurethral, perirectal areas revealed a small 1-1/2 cm right labial laceration. This was repaired with a single [id number] suture of 3-0 Vicryl. Estimated blood loss 300 mL's. Infant weight 3065 g, or 6 lbs. 12 oz. Patient and her family are allowed to begin the bonding experience in the LDR. Close blood pressure surveillance will be maintained.
[2017-06-06] MEDS: IBUPROFEN 600 MG TAB PO PRN ×2 (15:40→20:11)
[2017-06-06] MEDS: SENNOSIDES-DOCUSATE SODIUM 1 EACH TAB PO SCH (19:47)
[2017-06-06] MEDS: Acetaminophen-Codeine 300-30mg TAB PO PRN (23:52)
[2017-06-07] MEDS: Acetaminophen-Codeine 300-30mg TAB PO PRN (05:07)
--- NOTE | 2017-06-07 07:44 | P.DS ---
Providers Date of admission: 06/06/17 05:31 Expected date of discharge: 06/07/17 Attending physician: Esteban Constantino Primary care physician: Esteban Constantino [facility] Course: This is a 31-year-old 1 para 0 EDC 06/24/2017 at 37-3/7 weeks' gestation. Patient presented to labor and delivery with spontaneous amniorrhexis, clear fluid. Mild irregular uterine contractions to follow. was remarkable for occasional elevated blood pressures, proteinuria noted on 24-hour urine sample, and mildly elevated liver enzymes. Please see my dictated history and physical for details. On admission patient denied headache, visual changes, or right upper quadrant pain. Fetus is been active throughout the . Blood pressure on admission 126/77. Patient was admitted, oxytocin augmentation was started and titrated per hospital protocol. She progressed well and requested epidural, this was placed without difficulties. She had a 19 minute second stage of labor and went on to deliver a liveborn female infant with scores of 9 and 9 at one and 5 minutes respectively. weighed 6 lbs. 12 oz. or 3065 g. Estimated blood loss 300 mL's. Please see my dictated delivery note for details. A small right labial laceration was easily repaired. This morning the patient is doing well. She is voiding, ambulating and passing flatus without difficulty. Vital signs are stable and she is afebrile. Extremities are negative for edema. She denies headache, right upper quadrant pain, or visual changes. Blood pressure has been excellent. Infant is doing well. Patient is therefore being discharged home today in good condition. She will follow-up in the office with Dr. Cr in 6 weeks. I have reminded her no intercourse, tampons or douching. She will use [id number] ibuprofen products, 200 mg pills, 3 every 6 hours as needed for pain. I have given her prescription for a double electric breast pump. Breast-feeding appears to be going well. She will continue taking her vitamin daily. Follow-up in the office with Dr. Cr in 6 weeks. Call with any headache , visual changes, right upper quadrant pain, or indeed with any concerns or difficulties. Patient Condition at Discharge: Good Plan - Discharge Summary New Discharge Prescriptions: No Action 114/Iron A-G/Folate 1 [Prenate Elite Tablet] 1 tab PO HS Omeprazole Magnesium [Prilosec OTC] 20 mg PO HS diphenhydrAMINE HCL [Benadryl] 25 mg PO HS Discharge Medication List 114/Iron A-G/Folate 1 [Prenate Elite Tablet] 1 tab PO HS 04/19/16 [ History] Omeprazole Magnesium [Prilosec OTC] 20 mg PO HS 04/28/17 [History] diphenhydrAMINE HCL [Benadryl] 25 mg PO HS 04/28/17 [History] Follow up Appointment(s)/Referral(s): Gale Echavarria MD [STAFF PHYSICIAN] - 1 Week Discharge Disposition: HOME SELF-CARE
[2017-06-07] MEDS: IBUPROFEN 600 MG TAB PO PRN ×2 (08:02→13:55)
[2017-06-07] MEDS: SENNOSIDES-DOCUSATE SODIUM 1 EACH TAB PO SCH (08:03)
[2017-06-07 08:46] VITALS: BP 131/74; PULSE 82; RESP 16; TEMP 98.4
== END 2017-06-07 15:39 | disposition home or self-care (01) | DRG 775 ==
LOC: FBPOP 05:16 → 4FBP 05:31
PROVIDERS: ADMIT Obstetrics & Gynecology; ATTEND Obstetrics & Gynecology
PROC: 10E0XZZ Delivery of Products of Conception, External Approach (ICD-10-PCS; principal; 2017-06-06)
PROC: 0HQ9XZZ Repair Perineum Skin, External Approach (ICD-10-PCS; 2017-06-06)
PROC: 00HU33Z Insertion of Infusion Device into Spinal Canal, Percutaneous Approach (ICD-10-PCS; 2017-06-06)
PROC: 3E0R3CZ (ICD-10-PCS; 2017-06-06)
DX: O12.14 Gestational proteinuria, complicating childbirth (principal); O16.4 Unspecified maternal hypertension, complicating childbirth; O26.893 Other specified pregnancy related conditions, third trimester; O70.0 First degree perineal laceration during delivery; Z37.0 Single live birth; Z3A.37 37 weeks gestation of pregnancy; Z80.7 Family history of other malignant neoplasms of lymphoid, hematopoietic and related tissues; Z82.49 Family history of ischemic heart disease and other diseases of the circulatory system; Z83.3 Family history of diabetes mellitus; Z91.010 Allergy to peanuts
CPT/HCPCS: 59025; 84112; 85025; 88307; 99213

== ENCOUNTER 2017-11-11 08:09 | Emergency (ER) | payer BC, OTHER ==
[2017-11-11] MEDS ORDERED: ONDANSETRON 4 MG/2 ML VIAL IVP STA (08:46)
[2017-11-11] MEDS ORDERED: SODIUM CHLORIDE 0.9% 1,000 ML IV STA (08:46)
--- NOTE | 2017-11-11 08:54 | ED ---
General Adult HPI - General Chief complaint: Recheck/Abnormal Lab/Rx Stated complaint: HYPERTENSION Time Seen by Provider: 11/11/17 08:31 Source: patient, RN notes reviewed Mode of arrival: ambulatory Limitations: no limitations - History of Present Illness Initial comments: Patient is a 32-year-old female who presents emergency room with the chief complaint feeling dizzy at work earlier today. Patient states that she noticed that her blood pressure was elevated 140s over 80s at work. States that she has this symptom for her blood pressure is elevated. She does not take anything for her pressure. Patient states that she's also been feeling some pressure to her head. States the symptoms are consistent when she's had high blood pressure in the past as well. She does admit that there is a new symptoms of having some left facial numbness. She states that this started at 7 :15. Patient denies any other complaints or symptoms. Patient denies any recent fever, chills, shortness of breath, chest pain, back pain, abdominal pain , dysuria or hematuria, constipation or diarrhea, headaches or visual changes, or any other complaints. - Related Data Home Medications Medication Instructions Recorded Confirmed 114/Iron A-G/Folate 1 1 tab PO HS 04/19/16 11/11/17 [Prenate Elite Tablet] Acetaminophen Tab [Tylenol Tab] 1,000 mg PO Q6HR PRN 11/11/17 11/11/17 Omeprazole [PriLOSEC] 40 mg PO HS 11/11/17 11/11/17 Allergies Allergy/AdvReac Type Severity Reaction Status Date / Time peanut Allergy Anaphylaxis Verified 11/11/17 08:26 shellfish derived [Shellfish] Allergy Nausea & Verified 11/11/17 08:26 Vomiting & Diarrhea tree nut Allergy Anaphylaxis Verified 11/11/17 08:26 Review of Systems ROS Statement: Those systems with pertinent positive or pertinent negative responses have been documented in the HPI. ROS Other: All systems not noted in ROS Statement are negative. Past Medical History Past Medical History: No Reported History History of Any Multi-Drug Resistant Organisms: None Reported Past Surgical History: No Surgical Hx Reported Additional Past Surgical History / Comment(s): wisdom teeth Past Anesthesia/Blood Transfusion Reactions: No Reported Reaction Past Psychological History: No Psychological Hx Reported Smoking Status: Never smoker Past Alcohol Use History: None Reported Past Drug Use History: None Reported - Past Family History Mother Additional Family Medical History / Comment(s): Hypoglycemia General Exam - General Exam Comments Initial Comments: General: The patient is awake and alert, in no distress, and does not appear acutely ill. Eye: Pupils are equal, round and reactive to light, extra-ocular movements are intact. No nystagmus. There is normal conjunctiva bilaterally. No signs of icterus. Ears, nose, mouth and throat: There are moist mucous membranes and no oral lesions. Neck: The neck is supple, there is no tenderness or JVD. Cardiovascular: There is a regular rate and rhythm. No murmur, rub or gallop is appreciated. Respiratory: Lungs are clear to auscultation, respirations are non-labored, breath sounds are equal. No wheezes, stridor, rales, or rhonchi. Gastrointestinal: Soft, non-distended, non-tender abdomen without masses or organomegaly noted. There is no rebound or guarding present. No CVA tenderness. Bowel sounds are unremarkable. Musculoskeletal: Normal ROM, no tenderness. Strength 5/5. Sensation intact. Pulses equal bilaterally 2+. Neurological: A&O x 3. CN II-XII intact, There are no obvious motor or sensory deficits. Coordination appears grossly intact. Speech is normal. Skin: Skin is warm and dry and no rashes or lesions are noted. Psychiatric: Cooperative, appropriate mood & affect, normal judgment. Limitations: no limitations Course Vital Signs 11/11/17 11/11/17 11/11/17 08:11 10:18 10:30 Temperature 98.3 F Pulse Rate 91 76 68 Respiratory 16 18 16 Rate Blood Pressure 138/85 128/75 135/81 O2 Sat by Pulse 100 97 96 Oximetry Medical Decision Making - Medical Decision Making Case discussed in detail with attending physician Dr. Goldstein. Patient reexamined at this time shows no signs of distress. She is feeling much better after medications of Zofran and Toradol here in the emergency room and IV fluids. Patient's CT of the head negative. She admits that she's had symptoms similar to this with the high pressure and dizziness with her blood pressures been elevated before. She states she's had a headache. Was discussed about possible atypical migraine. Patient's labs reviewed unremarkable. Blood pressure much improved here. At this time patient doing well will be discharged home to follow-up with her family doctor next 2 days. Return for new concerns. - Lab Data Result diagrams: 11/11/17 09:00 11/11/17 09:00 Lab Results 11/11/17 11/11/17 11/11/17 Range/Units 08:41 08:41 09:00 WBC 9.2 (3.8-10.6) k/uL RBC 4.52 (3.80-5.40) m/uL Hgb 13.0 (11.4-16.0) gm/dL Hct 39.5 (34.0-46.0) % MCV 87.4 (80.0-100.0) fL MCH 28.8 (25.0-35.0) pg MCHC 33.0 (31.0-37.0) g/dL RDW 15.3 (11.5-15.5) % Plt Count 317 (150-450) k/uL Neutrophils % 74 % Lymphocytes % 18 % Monocytes % 5 % Eosinophils % 2 % Basophils % 0 % Neutrophils # 6.8 (1.3-7.7) k/uL Lymphocytes # 1.6 (1.0-4.8) k/uL Monocytes # 0.5 (0-1.0) k/uL Eosinophils # 0.2 (0-0.7) k/uL Basophils # 0.0 (0-0.2) k/uL Sodium (137-145) mmol/L Potassium (3.5-5.1) mmol/L Chloride (98-107) mmol/L Carbon Dioxide (22-30) mmol/L Anion Gap mmol/L BUN (7-17) mg/dL Creatinine (0.52-1.04) mg/dL Est GFR (MDRD) Af Amer (>60 ml/min/1.73 sqM) Est GFR (MDRD) Non-Af (>60 ml/min/1.73 sqM) Glucose (74-99) mg/dL Calcium (8.4-10.2) mg/dL Total Bilirubin (0.2-1.3) mg/dL AST (14-36) U/L ALT (9-52) U/L Alkaline Phosphatase (38-126) U/L Total Protein (6.3-8.2) g/dL Albumin (3.5-5.0) g/dL Urine Color Light Yellow Urine Appearance Clear (Clear) Urine pH 7.0 (5.0-8.0) Ur Specific [place] 1.005 (1.001-1.035) Urine Protein Negative (Negative) Urine Glucose (UA) Negative (Negative) Urine Ketones Negative (Negative) Urine Blood Negative (Negative) Urine Nitrite Negative (Negative) Urine Bilirubin Negative (Negative) Urine Urobilinogen <2.0 (<2.0) mg/dL Ur Leukocyte Esterase Negative (Negative) Urine HCG, Qual Not Detected (Not Detectd) 11/11/17 Range/Units 09:00 WBC (3.8-10.6) k/uL RBC (3.80-5.40) m/uL Hgb (11.4-16.0) gm/dL Hct (34.0-46.0) % MCV (80.0-100.0) fL MCH (25.0-35.0) pg MCHC (31.0-37.0) g/dL RDW (11.5-15.5) % Plt Count (150-450) k/uL Neutrophils % % Lymphocytes % % Monocytes % % Eosinophils % % Basophils % % Neutrophils # (1.3-7.7) k/uL Lymphocytes # (1.0-4.8) k/uL Monocytes # (0-1.0) k/uL Eosinophils # (0-0.7) k/uL Basophils # (0-0.2) k/uL Sodium 144 (137-145) mmol/L Potassium 4.5 (3.5-5.1) mmol/L Chloride 107 (98-107) mmol/L Carbon Dioxide 24 (22-30) mmol/L Anion Gap 13 mmol/L BUN 16 (7-17) mg/dL Creatinine 0.55 (0.52-1.04) mg/dL Est GFR (MDRD) Af Amer >60 (>60 ml/min/1.73 sqM) Est GFR (MDRD) Non-Af >60 (>60 ml/min/1.73 sqM) Glucose 88 (74-99) mg/dL Calcium 9.8 (8.4-10.2) mg/dL Total Bilirubin 0.3 (0.2-1.3) mg/dL AST 27 (14-36) U/L ALT 23 (9-52) U/L Alkaline Phosphatase 58 (38-126) U/L Total Protein 7.7 (6.3-8.2) g/dL Albumin 4.3 (3.5-5.0) g/dL Urine Color Urine Appearance (Clear) Urine pH (5.0-8.0) Ur Specific [place] (1.001-1.035) Urine Protein (Negative) Urine Glucose (UA) (Negative) Urine Ketones (Negative) Urine Blood (Negative) Urine Nitrite (Negative) Urine Bilirubin (Negative) Urine Urobilinogen (<2.0) mg/dL Ur Leukocyte Esterase (Negative) Urine HCG, Qual (Not Detectd) Disposition Clinical Impression: Atypical migraine Disposition: HOME SELF-CARE Condition: Good Instructions: Migraine Headache (ED) Additional Instructions: Please use medication as discussed. Please follow-up with family doctor in the next 2 days. Please return to emergency room if the symptoms increase or worsen or for any other concerns. Referrals: Jeremiah Day MD [Primary Care Provider] - 1-2 days Time of Disposition: 11:09
[2017-11-11 09:12] LABS: Appearance,Urine Clear (Clear); Bilirubin,Urine Negative (Negative); Blood,Urine Negative (Negative); Color,Urine Light Yellow; Glucose,Urine (UA) Negative (Negative); Ketones,Urine Negative (Negative); Leukocyte Esterase,Urine Negative (Negative); Nitrite,Urine Negative (Negative); Protein,Urine Negative (Negative); Specific Gravity,Urine 1.005 (1.001-1.035); Urobilinogen,Urine <2.0 mg/dL (<2.0)
[2017-11-11 09:26] LABS: Basophils % (A) 0 %; Eosinophils # (A) 0.2 k/uL (0-0.7); Eosinophils % (A) 2 %; HCT 39.5 % (34.0-46.0); Lymphocytes # (A) 1.6 k/uL (1.0-4.8); Lymphocytes % (A) 18 %; MCH 28.8 pg (25.0-35.0); MCV 87.4 fL (80.0-100.0); Mean Platelet Volume 7.7; Monocytes # (A) 0.5 k/uL (0-1.0); Monocytes % (A) 5 %; Neutrophils # (A) 6.8 k/uL (1.3-7.7); Neutrophils % (A) 74 %; Platelet Count 317 k/uL (150-450); RBC 4.52 m/uL (3.80-5.40); RDW 15.3 % (11.5-15.5); WBC 9.2 k/uL (3.8-10.6)
[2017-11-11 09:40] LABS: ALT 23 U/L (9-52); AST 27 U/L (14-36); Albumin 4.3 g/dL (3.5-5.0); Alkaline Phosphatase 58 U/L (38-126); Anion Gap 13 mmol/L; Blood Urea Nitrogen 16 mg/dL (7-17); Calcium 9.8 mg/dL (8.4-10.2); Carbon Dioxide 24 mmol/L (22-30); Chloride 107 mmol/L (98-107); Glucose 88 mg/dL (74-99); Potassium 4.5 mmol/L (3.5-5.1); Sodium 144 mmol/L (137-145); Total Bilirubin 0.3 mg/dL (0.2-1.3); Total Protein 7.7 g/dL (6.3-8.2)
--- NOTE | 2017-11-11 09:50 | CT ---
EXAMINATION TYPE: CT brain wo con DATE OF EXAM: 11/11/2017 COMPARISON: NONE HISTORY: 942.6 CT DLP: Patient complains of headache and periodic dizziness and nausea. mGycm Unenhanced CT of the brain was performed. The ventricles, basal cisterns and sulci overlying the cerebral convexities demonstrate a normal appe arance. There is no evidence for intracranial hemorrhage or sulcal effacement. No mass effects are seen. Osseous calvarium is intact. If symptoms persist consider MRI as clinically warranted. IMPRESSION: 1. No acute intracranial process is seen at this time.
[2017-11-11] MEDS ORDERED: KETOROLAC 30 MG/ML 1 ML VIAL IVP STA (10:22)
[2017-11-11 11:18] VITALS: BP 137/80; PULSE 77; RESP 20; TEMP 98.1
== END 2017-11-11 11:33 | disposition home or self-care (01) ==
LOC: EC 08:09
DX: G43.009 Migraine without aura, not intractable, without status migrainosus (principal); R20.0 Anesthesia of skin; R03.0 Elevated blood-pressure reading, without diagnosis of hypertension; Z79.899 Other long term (current) drug therapy; Z91.010 Allergy to peanuts; Z91.013 Allergy to seafood; Z91.018 Allergy to other foods
CPT/HCPCS: 36415; 93005; 80053; 85025; 81003; 81025; 70450; 99284; 96374; 96375; 96361 ×2; J2405; J1885

== ENCOUNTER → 2018-03-09 | Outpatient (CLI) | payer BC ==
--- NOTE | 2018-03-09 09:30 | US ---
EXAMINATION TYPE: US kidneys/renal and bladder DATE OF EXAM: 03/09/2018 COMPARISON: us 04/24/2016 CLINICAL HISTORY: R03.0 Elevated blood-pressure reading, without jannette. Ultrasound performed of the kidneys and bladder per physician request, adrenal glands not visible EXAM MEASUREMENTS: Right Kidney: 10.0 x 4.6 x 5.0 cm Left Kidney: 9.9 x 5.5 x 4.6 cm Right Kidney: No hydronephrosis or masses seen Left Kidney: No hydronephrosis or masses seen Bladder: wnl Bilateral Jets seen: Yes Cortical medullary differentiation is maintained. No evident calcification. IMPRESSION: Normal renal ultrasound
== END ==
LOC: RADUSMAIN 08:08
PROVIDERS: ATTEND Pediatrics
DX: R03.0 Elevated blood-pressure reading, without diagnosis of hypertension (principal)
CPT/HCPCS: 76770

== ENCOUNTER 2018-07-12 16:43 | Emergency (ER) | payer BC, OTHER ==
[2018-07-12 17:01] VITALS: TEMP 98.1
[2018-07-12] MEDS ORDERED: SODIUM CHLORIDE 0.9% 1,000 ML IV STA (17:56)
[2018-07-12 18:46] LABS: Basophils % (A) 0 %; Eosinophils # (A) 0.2 k/uL (0-0.7); Eosinophils % (A) 2 %; HCT 38.8 % (34.0-46.0); HGB 12.9 gm/dL (11.4-16.0); Lymphocytes # (A) 1.8 k/uL (1.0-4.8); Lymphocytes % (A) 17 %; MCH 30.9 pg (25.0-35.0); MCHC 33.2 g/dL (31.0-37.0); MCV 92.8 fL (80.0-100.0); Mean Platelet Volume 7.1; Monocytes # (A) 0.5 k/uL (0-1.0); Monocytes % (A) 4 %; Neutrophils # (A) 7.8 k/uL (1.3-7.7); Neutrophils % (A) 76 %; Platelet Count 290 k/uL (150-450); RBC 4.18 m/uL (3.80-5.40); RDW 13.1 % (11.5-15.5); WBC 10.4 k/uL (3.8-10.6)
[2018-07-12 18:53] LABS: ALT 18 U/L (9-52); AST 34 U/L (14-36); Albumin 4.2 g/dL (3.5-5.0); Alkaline Phosphatase 49 U/L (38-126); Amylase 68 U/L (30-110); Anion Gap 10 mmol/L; Appearance,Urine Clear (Clear); Bilirubin,Urine Negative (Negative); Blood Urea Nitrogen 13 mg/dL (7-17); Blood,Urine Negative (Negative); Calcium 9.3 mg/dL (8.4-10.2); Carbon Dioxide 24 mmol/L (22-30); Chloride 105 mmol/L (98-107); Color,Urine Yellow; Glucose 91 mg/dL (74-99); Glucose,Urine (UA) Negative (Negative); Ketones,Urine Negative (Negative); Leukocyte Esterase,Urine Trace (Negative); Lipase 62 U/L (23-300); Mucus,Urine Rare /hpf; Nitrite,Urine Negative (Negative); Potassium 4.7 mmol/L (3.5-5.1); Protein,Urine Negative (Negative); RBC,Urine 1 /hpf (0-5); Sodium 139 mmol/L (137-145); Specific Gravity,Urine 1.017 (1.001-1.035); Squamous Epithelial Cell,Urine 7 /hpf (0-4); Total Bilirubin 0.3 mg/dL (0.2-1.3); Total Protein 7.8 g/dL (6.3-8.2); Urobilinogen,Urine <2.0 mg/dL (<2.0); WBC,Urine 6 /hpf (0-5)
[2018-07-12] MEDS ORDERED: METOCLOPRAMIDE 5 MG/ML 2 ML VIAL IVP STA (19:06)
[2018-07-12] MEDS ORDERED: diphenhydrAMINE 50 MG/ML 1 ML VIAL IVP STA (19:06)
[2018-07-12] MEDS ORDERED: KETOROLAC 30 MG/ML 1 ML VIAL IVP STA (19:06)
--- NOTE | 2018-07-12 19:14 | ED ---
General Adult HPI - General Chief complaint: Abdominal Pain Stated complaint: pelvic pain,nausea Time Seen by Provider: 07/12/18 17:14 Source: patient, family, RN notes reviewed Mode of arrival: ambulatory Limitations: no limitations - History of Present Illness Initial comments: 32-year-old female presents to the emergency determine for multiple complaints. Patient states she was at work when she picked up a box and developed a headache and pelvic pain. Patient states the headache is a 7 out of 10. Patient states she has a history of migraines. Patient states this is not the worst headache she's ever had but is different than her migraines. Patient also states pelvic pain started around the same time. Patient describes the pelvic pain as a sharp stabbing pain. Patient states she was on her menstrual cycle for the past few days and is now spotting. Patient states she is trying to get . Patient denies any complaints of STDs. Patient has no other complaints at this time including shortness of breath, chest pain, nausea or vomiting, headache, or visual changes. - Related Data Home Medications Medication Instructions Recorded Confirmed 114/Iron A-G/Folate 1 1 tab PO HS 04/19/16 07/12/18 [Prenate Elite Tablet] Cholecalciferol [Vitamin D3] 1,000 unit PO HS 07/12/18 07/12/18 Omeprazole Magnesium [PriLOSEC OTC] 20 mg PO HS 07/12/18 07/12/18 Sertraline HCl [Zoloft] 25 mg PO DAILY 07/12/18 07/12/18 Vitamin B Complex 1 cap PO DAILY 07/12/18 07/12/18 Allergies Allergy/AdvReac Type Severity Reaction Status Date / Time peanut Allergy Anaphylaxis Verified 07/12/18 17:06 shellfish derived [Shellfish] Allergy Nausea & Verified 07/12/18 17:06 Vomiting & Diarrhea tree nut Allergy Anaphylaxis Verified 07/12/18 17:06 Review of Systems ROS Statement: Those systems with pertinent positive or pertinent negative responses have been documented in the HPI. ROS Other: All systems not noted in ROS Statement are negative. Past Medical History Past Medical History: Hypertension Additional Past Medical History / Comment(s): HT during History of Any Multi-Drug Resistant Organisms: None Reported Past Surgical History: No Surgical Hx Reported Additional Past Surgical History / Comment(s): wisdom teeth Past Anesthesia/Blood Transfusion Reactions: No Reported Reaction Past Psychological History: No Psychological Hx Reported Smoking Status: Never smoker Past Alcohol Use History: None Reported Past Drug Use History: None Reported - Past Family History Mother Additional Family Medical History / Comment(s): Hypoglycemia General Exam Limitations: no limitations General appearance: alert, in no apparent distress Head exam: Present: atraumatic, normocephalic, normal inspection Eye exam: Present: normal appearance, PERRL, EOMI. Absent: scleral icterus, conjunctival injection, periorbital swelling ENT exam: Present: normal exam, normal oropharynx, mucous membranes moist, TM's normal bilaterally, normal external ear exam Neck exam: Present: normal inspection, full ROM. Absent: tenderness, meningismus, lymphadenopathy Respiratory exam: Present: normal lung sounds bilaterally. Absent: respiratory distress, wheezes, rales, rhonchi, stridor Cardiovascular Exam: Present: regular rate, normal rhythm, normal heart sounds. Absent: systolic murmur, diastolic murmur, rubs, gallop, clicks GI/Abdominal exam: Present: soft, normal bowel sounds. Absent: distended, tenderness (No abdominal or pelvic tenderness, no McBurney point tenderness, negative obturator and psoas signs. Negative Locke sign), guarding, rebound, rigid External exam: Present: other (Patient refused pelvic exam) Neurological exam: Present: alert, oriented X3, CN II-XII intact Expanded Speech: Present: fluid speech Cranial nerves: EOM's Intact: Normal, Tongue Deviation: Normal, Nystagmus: Normal Cerebellar function: Finger to Nose: Normal, Heel to Lang: Normal, Romberg: Normal Upper motor neuron: Pronator Drift: Normal Sensory exam: Upper Extremity Light Touch: Normal, Upper Extremity Pin Prick: Normal, Lower Extremity Light Touch: Normal, Lower Extremity Pin Prick: Normal Motor strength exam: RUE: 5, LUE: 5, RLE: 5, LLE: 5 Eye Response: (4) open spontaneously Motor Response: (6) obeys commands Verbal Response: (5) oriented Chandan Total: 15 Psychiatric exam: Present: normal affect, normal mood Course Vital Signs 07/12/18 16:58 Temperature 98.1 F Pulse Rate 84 Respiratory 18 Rate Blood Pressure 139/80 O2 Sat by Pulse 98 Oximetry Medical Decision Making - Medical Decision Making 32-year-old female presents to the emergency department for multiple complaints. Patient presents for headache and vaginal pain 3 hours. Patient states the vaginal pain as a sharp stabbing pain. Patient states she is ending her period today. Patient is having normal bowel movements and last had a bowel movement earlier today. Patient is passing gas normally. On exam no focal neuro deficits, GCS 15, I did recommend CAT scan to patient as she is complaining of a headache. Patient refuses CAT scan for headache because she has had migraines in the past and has a history of migraines although they're somewhat different than this. I did warn patient of the risks of not doing a CAT scan including undetected brain bleed, patient is aware. Patient is nontender in the abdomen on exam. No pelvic or suprapubic tenderness. Bowel sounds normal 4. Ultrasound does not show any evidence of torsion. Patient may be experiencing uterine cramping as she is on her menstrual cycle. CBC and CMP unremarkable. Urine was sent for culture and GC. Patient was given Toradol and Benadryl in the emergency department and she is feeling much better. Patient will be discharged home with follow-up to primary care in 1-2 days. Patient aware to return to the emergency Department if she has any worsening symptoms. - Lab Data Result diagrams: 07/12/18 18:15 07/12/18 18:15 Lab Results 07/12/18 07/12/18 07/12/18 Range/Units 18:15 18:15 18:15 WBC (3.8-10.6) k/uL RBC (3.80-5.40) m/uL Hgb (11.4-16.0) gm/dL Hct (34.0-46.0) % MCV (80.0-100.0) fL MCH (25.0-35.0) pg MCHC (31.0-37.0) g/dL RDW (11.5-15.5) % Plt Count (150-450) k/uL Neutrophils % % Lymphocytes % % Monocytes % % Eosinophils % % Basophils % % Neutrophils # (1.3-7.7) k/uL Lymphocytes # (1.0-4.8) k/uL Monocytes # (0-1.0) k/uL Eosinophils # (0-0.7) k/uL Basophils # (0-0.2) k/uL Sodium 139 (137-145) mmol/L Potassium 4.7 (3.5-5.1) mmol/L Chloride 105 (98-107) mmol/L Carbon Dioxide 24 (22-30) mmol/L Anion Gap 10 mmol/L BUN 13 (7-17) mg/dL Creatinine 0.59 (0.52-1.04) mg/dL Est GFR (CKD-EPI)AfAm >90 (>60 ml/min/1.73 sqM) Est GFR (CKD-EPI)NonAf >90 (>60 ml/min/1.73 sqM) Glucose 91 (74-99) mg/dL Calcium 9.3 (8.4-10.2) mg/dL Total Bilirubin 0.3 (0.2-1.3) mg/dL AST 34 (14-36) U/L ALT 18 (9-52) U/L Alkaline Phosphatase 49 (38-126) U/L Total Protein 7.8 (6.3-8.2) g/dL Albumin 4.2 (3.5-5.0) g/dL Amylase 68 (30-110) U/L Lipase 62 (23-300) U/L Urine Color Yellow Urine Appearance Clear (Clear) Urine pH 6.0 (5.0-8.0) Ur Specific [place] 1.017 (1.001-1.035) Urine Protein Negative (Negative) Urine Glucose (UA) Negative (Negative) Urine Ketones Negative (Negative) Urine Blood Negative (Negative) Urine Nitrite Negative (Negative) Urine Bilirubin Negative (Negative) Urine Urobilinogen <2.0 (<2.0) mg/dL Ur Leukocyte Esterase Trace H (Negative) Urine RBC 1 (0-5) /hpf Urine WBC 6 H (0-5) /hpf Ur Squamous Epith Cells 7 H (0-4) /hpf Urine Mucus Rare H (None) /hpf Urine HCG, Qual Not Detected (Not Detectd) 07/12/18 Range/Units 18:15 WBC 10.4 (3.8-10.6) k/uL RBC 4.18 (3.80-5.40) m/uL Hgb 12.9 (11.4-16.0) gm/dL Hct 38.8 (34.0-46.0) % MCV 92.8 (80.0-100.0) fL MCH 30.9 (25.0-35.0) pg MCHC 33.2 (31.0-37.0) g/dL RDW 13.1 (11.5-15.5) % Plt Count 290 (150-450) k/uL Neutrophils % 76 % Lymphocytes % 17 % Monocytes % 4 % Eosinophils % 2 % Basophils % 0 % Neutrophils # 7.8 H (1.3-7.7) k/uL Lymphocytes # 1.8 (1.0-4.8) k/uL Monocytes # 0.5 (0-1.0) k/uL Eosinophils # 0.2 (0-0.7) k/uL Basophils # 0.0 (0-0.2) k/uL Sodium (137-145) mmol/L Potassium (3.5-5.1) mmol/L Chloride (98-107) mmol/L Carbon Dioxide (22-30) mmol/L Anion Gap mmol/L BUN (7-17) mg/dL Creatinine (0.52-1.04) mg/dL Est GFR (CKD-EPI)AfAm (>60 ml/min/1.73 sqM) Est GFR (CKD-EPI)NonAf (>60 ml/min/1.73 sqM) Glucose (74-99) mg/dL Calcium (8.4-10.2) mg/dL Total Bilirubin (0.2-1.3) mg/dL AST (14-36) U/L ALT (9-52) U/L Alkaline Phosphatase (38-126) U/L Total Protein (6.3-8.2) g/dL Albumin (3.5-5.0) g/dL Amylase (30-110) U/L Lipase (23-300) U/L Urine Color Urine Appearance (Clear) Urine pH (5.0-8.0) Ur Specific [place] (1.001-1.035) Urine Protein (Negative) Urine Glucose (UA) (Negative) Urine Ketones (Negative) Urine Blood (Negative) Urine Nitrite (Negative) Urine Bilirubin (Negative) Urine Urobilinogen (<2.0) mg/dL Ur Leukocyte Esterase (Negative) Urine RBC (0-5) /hpf Urine WBC (0-5) /hpf Ur Squamous Epith Cells (0-4) /hpf Urine Mucus (None) /hpf Urine HCG, Qual (Not Detectd) Disposition Clinical Impression: Abdominal pain, Uterine cramping Disposition: HOME SELF-CARE Condition: Good Instructions: Abdominal Pain (ED) Additional Instructions: Please follow up with primary care in 1-2 days. Please return to the emergency department if you have any worsening symptoms. Is patient prescribed a controlled substance at d/c from ED?: No Referrals: Jeremiah Day MD [Primary Care Provider] - 1-2 days Time of Disposition: 20:45
--- NOTE | 2018-07-12 20:09 | US ---
EXAMINATION TYPE: US transvaginal DATE OF EXAM: 07/12/2018 COMPARISON: NONE CLINICAL HISTORY: Pain TECHNIQUE: Transvaginal (TV). EXAM MEASUREMENTS: Uterus: 7.0 x 3.5 x 4.0 cm Endometrial Stripe: 0.2 cm Right Ovary: 2.6 x 1.9 x 1.9 cm 1. Uterus: Anteverted wnl 2. Endometrium: wnl 3. Right Ovary: Follicles seen. Spectral, color and waveform doppler imaging shows good arterial a nd venous flow within the right ovary; there is no evidence for ovarian torsion. 4. Left Ovary: Obscured by overlying bowel gas, but no mass evident. 5. Bilateral Adnexa: wnl 6. Posterior cul-de-sac: wnl IMPRESSION: No acute process.
[2018-07-12 20:44] VITALS: BP 132/81; PULSE 78; RESP 16
[2018-07-13 14:03] LABS: C. trachomatis,PCR Negative (Neg,Equiv); Chlamydia trachomatis Source Urine; N. gonorrhoeae,PCR Negative (Neg,Equiv); Neisseria Source Urine
== END 2018-07-12 20:56 | disposition home or self-care (01) ==
LOC: EC 16:43
DX: N94.89 Other specified conditions associated with female genital organs and menstrual cycle (principal); R10.2 Pelvic and perineal pain; R11.0 Nausea; R51 Headache; Z86.69 Personal history of other diseases of the nervous system and sense organs; Z79.899 Other long term (current) drug therapy; Z91.010 Allergy to peanuts; Z91.013 Allergy to seafood; Z91.018 Allergy to other foods
CPT/HCPCS: 36415; 80053; 82150; 83690; 85025; 81001; 81025; 87491; 87591; 87086; 93976; 76830; 99284; 96374; 96375; 96361; J1200; J1885

== ENCOUNTER 2018-09-04 20:02 | Emergency (ER) | payer BC ==
[2018-09-04] MEDS ORDERED: ACETAMINOPHEN TAB 500 MG TAB PO STA (21:08)
--- NOTE | 2018-09-04 21:19 | ED ---
General Adult HPI - General Source: patient, RN notes reviewed Mode of arrival: ambulatory Limitations: no limitations <Rafael Cat P - Last Filed: 09/04/18 23:48> <Ethel Funk P - Last Filed: 09/05/18 02:20> - General Chief complaint: Abdominal Pain Stated complaint: 1 month , abd pain Time Seen by Provider: 09/04/18 20:20 - History of Present Illness Initial comments: 32-year-old female presents to the emergency department for a chief complaint of abdominal cramping times one day. Patient states she woke up with the pain. She states it has been intermittent throughout the day. She describes it as a sharp cramping pain. She states it is worse with activity and better when sitting or lying down. She denies nausea or vomiting. She states she is about one month . Her last period was 08/31/2018. She denies any vaginal bleeding or discharge. She states bowel movements are normal. She states her last was a vaginal delivery but was complicated by hypertension. Patient has no other complaints at this time including shortness of breath, chest pain, nausea or vomiting, headache, or visual changes. (Rafael Cat) - Related Data Home Medications Medication Instructions Recorded Confirmed 114/Iron A-G/Folate 1 1 tab PO HS 04/19/16 09/04/18 [Prenate Elite Tablet] Omeprazole Magnesium [PriLOSEC OTC] 20 mg PO HS 07/12/18 09/04/18 Sertraline HCl [Zoloft] 25 mg PO DAILY 07/12/18 09/04/18 Vitamin B Complex 1 cap PO DAILY 07/12/18 09/04/18 Calcium/Magnesium/Zinc 09/04/18 [Sdbcdjj-[id number]-Wdwb Tablet] Docusate [Colace] 100 mg PO 09/04/18 Allergies Allergy/AdvReac Type Severity Reaction Status Date / Time peanut Allergy Anaphylaxis Verified 07/12/18 17:06 shellfish derived [Shellfish] Allergy Nausea & Verified 07/12/18 17:06 Vomiting & Diarrhea tree nut Allergy Anaphylaxis Verified 07/12/18 17:06 Review of Systems ROS Other: All systems not noted in ROS Statement are negative. <Rafael Cat P - Last Filed: 09/04/18 23:48> ROS Other: All systems not noted in ROS Statement are negative. <Ethel Funk P - Last Filed: 09/05/18 02:20> ROS Statement: Those systems with pertinent positive or pertinent negative responses have been documented in the HPI. Past Medical History Past Medical History: Hypertension Additional Past Medical History / Comment(s): HT during History of Any Multi-Drug Resistant Organisms: ESBL Date of last positivie culture/infection: 07/12/18 MDRO Source:: ESBL URINE Past Surgical History: No Surgical Hx Reported Additional Past Surgical History / Comment(s): wisdom teeth Past Anesthesia/Blood Transfusion Reactions: No Reported Reaction Past Psychological History: No Psychological Hx Reported Smoking Status: Never smoker Past Alcohol Use History: None Reported Past Drug Use History: None Reported - Past Family History Mother Additional Family Medical History / Comment(s): Hypoglycemia <Rafael Cat P - Last Filed: 09/04/18 23:48> General Exam Limitations: no limitations General appearance: alert, in no apparent distress Head exam: Present: atraumatic, normocephalic, normal inspection Eye exam: Present: normal appearance, PERRL, EOMI. Absent: scleral icterus, conjunctival injection, periorbital swelling ENT exam: Present: normal exam, mucous membranes moist Neck exam: Present: normal inspection, full ROM. Absent: tenderness, meningismus, lymphadenopathy Respiratory exam: Present: normal lung sounds bilaterally. Absent: respiratory distress, wheezes, rales, rhonchi, stridor Cardiovascular Exam: Present: regular rate, normal rhythm, normal heart sounds. Absent: systolic murmur, diastolic murmur, rubs, gallop, clicks GI/Abdominal exam: Present: soft, tenderness (Tenderness throughout the lower abdomen generalized and mildly worsened in the right lower quadrant), normal bowel sounds. Absent: distended, guarding (No guarding noted,), rebound, rigid External exam: Present: normal external exam, other (I did offer patient a painting manager but she declined) Speculum exam: Present: cervical discharge (Thin white discharge noted) By manual exam: Present: normal by manual exam. Absent: cervical motion tenderness, adnexal tenderness, adnexal mass, uterine enlargement, uterine tenderness <Rafael Cat P - Last Filed: 09/04/18 23:48> Vital Signs 09/04/18 09/04/18 20:05 23:50 Temperature 98.0 F 98.9 F Pulse Rate 83 70 Respiratory 18 16 Rate Blood Pressure 159/99 149/90 O2 Sat by Pulse 100 100 Oximetry Medical Decision Making - Lab Data Result diagrams: 09/04/18 21:45 09/04/18 21:45 <Rafael Cat P - Last Filed: 09/04/18 23:48> - Lab Data Result diagrams: 09/04/18 21:45 09/04/18 21:45 <Ethel Funk P - Last Filed: 09/05/18 02:20> - Medical Decision Making female with a past medical history of hypertension presents to the emergency department for chief complaint of pelvic pain times one day. Patient states this is worsened with activity and better with rest. She describes the pain as a sharp cramping pain centralized in the lower pelvis. On exam patient has mild generalized lower abdominal tenderness somewhat worse in the right lower quadrant. Pelvic exam reveals small amount of white thin discharge. No vaginal bleeding. Patient adamantly refuses STD testing, no swabs were obtained. Otherwise unremarkable exam. CBC and CMP are unremarkable. Urine does not show any evidence of infection. HCG Quant 4160. Ultrasound shows a tiny intrauterine gestational sac measuring 6 mm. No adnexal mass. There is trace free fluid adjacent right ovary. She was given Tylenol which did help with her pain. At this time it is felt the patient can follow up with her OB/ [employer]. Patient agrees with this. She states she is already established with Dr. Constantino. Patient aware to return here if she has any worsening symptoms. Vitals are stable on discharge. Patient is mildly hypertensive and will follow up with [employer]ION OFFICER for this as well. (Rafael Cat) I was available for consultation in the emergency department. The history and physical exam were done by the midlevel provider. I was consulted for this patient's care. I reviewed the case with the midlevel provider and based on their presentation of the patient, I agree with the assessment, medical decision making and plan of care as documented. (Ethel Funk) - Lab Data Lab Results 09/04/18 09/04/18 09/04/18 Range/Units 21:30 21:45 21:45 WBC 8.9 (3.8-10.6) k/uL RBC 4.18 (3.80-5.40) m/uL Hgb 12.7 (11.4-16.0) gm/dL Hct 39.8 (34.0-46.0) % MCV 95.1 (80.0-100.0) fL MCH 30.2 (25.0-35.0) pg MCHC 31.8 (31.0-37.0) g/dL RDW 13.2 (11.5-15.5) % Plt Count 276 (150-450) k/uL Neutrophils % 65 % Lymphocytes % 26 % Monocytes % 5 % Eosinophils % 3 % Basophils % 0 % Neutrophils # 5.8 (1.3-7.7) k/uL Lymphocytes # 2.3 (1.0-4.8) k/uL Monocytes # 0.4 (0-1.0) k/uL Eosinophils # 0.3 (0-0.7) k/uL Basophils # 0.0 (0-0.2) k/uL Sodium 140 (137-145) mmol/L Potassium 4.4 (3.5-5.1) mmol/L Chloride 108 H (98-107) mmol/L Carbon Dioxide 21 L (22-30) mmol/L Anion Gap 11 mmol/L BUN 14 (7-17) mg/dL Creatinine 0.61 (0.52-1.04) mg/dL Est GFR (CKD-EPI)AfAm >90 (>60 ml/min/1.73 sqM) Est GFR (CKD-EPI)NonAf >90 (>60 ml/min/1.73 sqM) Glucose 92 (74-99) mg/dL Calcium 9.8 (8.4-10.2) mg/dL Total Bilirubin 0.3 (0.2-1.3) mg/dL AST 57 H (14-36) U/L ALT 57 H (9-52) U/L Alkaline Phosphatase 67 (38-126) U/L Total Protein 7.8 (6.3-8.2) g/dL Albumin 4.3 (3.5-5.0) g/dL Amylase 69 (30-110) U/L Lipase 144 (23-300) U/L HCG, Quant 4160.5 mIU/mL Urine Color Colorless Urine Appearance Clear (Clear) Urine pH 6.5 (5.0-8.0) Ur Specific [place] 1.005 (1.001-1.035) Urine Protein Negative (Negative) Urine Glucose (UA) Negative (Negative) Urine Ketones Negative (Negative) Urine Blood Negative (Negative) Urine Nitrite Negative (Negative) Urine Bilirubin Negative (Negative) Urine Urobilinogen <2.0 (<2.0) mg/dL Ur Leukocyte Esterase Negative (Negative) Disposition Is patient prescribed a controlled substance at d/c from ED?: No Time of Disposition: 22:40 <Rafael Cat P - Last Filed: 09/04/18 23:48> <Ethel Funk P - Last Filed: 09/05/18 02:20> Clinical Impression: Threatened miscarriage in early Disposition: HOME SELF-CARE Condition: Good Instructions: Threatened Miscarriage (ED) Additional Instructions: Take Tylenol for pain. Please follow up with [employer]ES [employer]ION OFFICER in one to 2 days. Please return to the emergency department if you have any worsening symptoms. Referrals: Jeremiah Day MD [Primary Care Provider] - 1-2 days Esteban Constantino MD [STAFF PHYSICIAN] - 1-2 days
[2018-09-04 21:52] LABS: Appearance,Urine Clear (Clear); Bilirubin,Urine Negative (Negative); Blood,Urine Negative (Negative); Color,Urine Colorless; Glucose,Urine (UA) Negative (Negative); Ketones,Urine Negative (Negative); Leukocyte Esterase,Urine Negative (Negative); Nitrite,Urine Negative (Negative); PH, Urine 6.5 (5.0-8.0); Protein,Urine Negative (Negative); Specific Gravity,Urine 1.005 (1.001-1.035); Urobilinogen,Urine <2.0 mg/dL (<2.0)
[2018-09-04 22:03] LABS: Basophils % (A) 0 %; Eosinophils # (A) 0.3 k/uL (0-0.7); Eosinophils % (A) 3 %; HCT 39.8 % (34.0-46.0); HGB 12.7 gm/dL (11.4-16.0); Lymphocytes # (A) 2.3 k/uL (1.0-4.8); Lymphocytes % (A) 26 %; MCH 30.2 pg (25.0-35.0); MCHC 31.8 g/dL (31.0-37.0); MCV 95.1 fL (80.0-100.0); Mean Platelet Volume 7.7; Monocytes # (A) 0.4 k/uL (0-1.0); Monocytes % (A) 5 %; Neutrophils # (A) 5.8 k/uL (1.3-7.7); Neutrophils % (A) 65 %; Platelet Count 276 k/uL (150-450); RBC 4.18 m/uL (3.80-5.40); RDW 13.2 % (11.5-15.5); WBC 8.9 k/uL (3.8-10.6)
[2018-09-04 22:17] LABS: Albumin 4.3 g/dL (3.5-5.0); Amylase 69 U/L (30-110); Anion Gap 11 mmol/L; Blood Urea Nitrogen 14 mg/dL (7-17); Calcium 9.8 mg/dL (8.4-10.2); Carbon Dioxide 21 mmol/L (22-30); Chloride 108 mmol/L (98-107); Glucose 92 mg/dL (74-99); Lipase 144 U/L (23-300); Sodium 140 mmol/L (137-145); Total Bilirubin 0.3 mg/dL (0.2-1.3); Total Protein 7.8 g/dL (6.3-8.2)
[2018-09-04 22:23] LABS: AST 57 U/L (14-36); Potassium 4.4 mmol/L (3.5-5.1)
[2018-09-04 22:24] LABS: ALT 57 U/L (9-52); Alkaline Phosphatase 67 U/L (38-126)
[2018-09-04 22:34] LABS: HCG,Quantitative Serum 4160.5 mIU/mL
--- NOTE | 2018-09-04 22:52 | US ---
EXAMINATION TYPE: Transabdominal DATE OF EXAM: 01/18/18 COMPARISON: NONE CLINICAL HISTORY: Pain. Cramping, no spotting EXAM PERFORMED: Transvaginal (TV) and Transabdominal (TA) EXAM MEASUREMENTS: GESTATIONAL AGE / DATING Dates by LMP: (4 weeks/4 days) EDC: 05/10/2019 Dates by Current Scan for: Unable to date by today's study MATERNAL ANATOMY Uterus: 8.5 x 5.0 x 4.2 cm Right Ovary: 2.9 x 2.0 x 2.0 cm Left Ovary: 2.4 x 1.5 x 1.3 cm Post CDS / Adnexa: free fluid adjacent to right ovary Presence of free fluid: no Presence of corpus luteal cyst: right ovarian lesion - 1.6 x 2.0 x 1.4 cm Presence of subchorionic bleed: no GESTATION / SURVEY CRL: Not visualized MSD: 0.6 cm Unable to date due to early gestational age. Date of LMP: 08/03/2018, Beta HcG (if available): Not available at this time GS only seen in Uterus. No CRL or YS visualized. Unable to date due to early gestational age. IMPRESSION: Tiny intrauterine gestational sac measures 6 mm. Follow-up examination is recommended in 14 days to c onfirm a living fetus. No adnexal mass. There is trace free fluid adjacent to the right ovary.
[2018-09-04 23:53] VITALS: BP 149/90; PULSE 70; RESP 16; TEMP 98.9
== END 2018-09-04 23:45 | disposition home or self-care (01) ==
LOC: EC 20:02
DX: O20.0 Threatened abortion (principal); O10.911 Unspecified pre-existing hypertension complicating pregnancy, first trimester; Z91.010 Allergy to peanuts; Z91.013 Allergy to seafood; Z91.018 Allergy to other foods; Z79.899 Other long term (current) drug therapy; Z3A.01 Less than 8 weeks gestation of pregnancy
CPT/HCPCS: 36415; 76801; 76817; 80053; 81003; 82150; 83690; 84702; 85025; 87086; 99284

== ENCOUNTER → 2018-09-06 | Outpatient (CLI) | payer BC | END | disposition home or self-care (01) | LOC: LABWHC1 16:30 | PROVIDERS: ATTEND Obstetrics & Gynecology | DX: O20.0 Threatened abortion (principal); Z3A.00 Weeks of gestation of pregnancy not specified | CPT/HCPCS: 36415; 84702 ==

== ENCOUNTER 2018-12-09 10:46 | Emergency (ER) | payer BC ==
[2018-12-09 10:56] VITALS: BP 130/73; PULSE 72; RESP 20; TEMP 98.4
[2018-12-09 11:54] LABS: Basophils % (A) 0 %; Eosinophils # (A) 0.2 k/uL (0-0.7); Eosinophils % (A) 1 %; HCT 38.2 % (34.0-46.0); HGB 12.3 gm/dL (11.4-16.0); Lymphocytes # (A) 1.5 k/uL (1.0-4.8); Lymphocytes % (A) 14 %; MCH 30.6 pg (25.0-35.0); MCHC 32.1 g/dL (31.0-37.0); MCV 95.3 fL (80.0-100.0); Mean Platelet Volume 7.1; Monocytes # (A) 0.4 k/uL (0-1.0); Monocytes % (A) 4 %; Neutrophils # (A) 8.6 k/uL (1.3-7.7); Neutrophils % (A) 79 %; Platelet Count 244 k/uL (150-450); RBC 4.01 m/uL (3.80-5.40); RDW 13.3 % (11.5-15.5); WBC 10.8 k/uL (3.8-10.6)
[2018-12-09 12:01] LABS: Appearance,Urine Cloudy (Clear); Bacteria,Urine Many /hpf; Bilirubin,Urine Negative (Negative); Blood,Urine Negative (Negative); Color,Urine Colorless; Glucose,Urine (UA) Negative (Negative); Ketones,Urine Negative (Negative); Leukocyte Esterase,Urine Moderate (Negative); Nitrite,Urine Negative (Negative); PH, Urine 6.5 (5.0-8.0); Protein,Urine Negative (Negative); Specific Gravity,Urine 1.005 (1.001-1.035); Squamous Epithelial Cell,Urine 17 /hpf (0-4); Urobilinogen,Urine <2.0 mg/dL (<2.0)
[2018-12-09 12:05] LABS: INR 0.9 (<1.2); Prothrombin Time 9.5 sec (9.0-12.0)
--- NOTE | 2018-12-09 12:09 | ED ---
General Adult HPI - General Chief complaint: Abdominal Pain Stated complaint: Abd pain, cramping. 18 wks pg Time Seen by Provider: 12/09/18 11:12 Source: patient Mode of arrival: ambulatory Limitations: no limitations - History of Present Illness Initial comments: Dictation was produced using [employer] dictation software. please excuse any grammatical, word or spelling errors. Chief Complaint: 33-year-old female who was allegedly 18 weeks presents with chief complaint of suprapubic pain. History of Present Illness: Patient's 33-year-old female presents with suprapubic pain. This is her second . She's had issues with threatened miscarriages for her first . Patient's CARD STRIPPER is Dr. Constantino. She states that her symptoms have been ongoing for approximately 3- 4 days. Reports that it started after seeing a chiropractor who was manipulating her left hip. Patient has any vaginal bleeding. She states pain is on off. She states that sometimes worse in different positions. No nausea vomiting fevers, chills or night sweats. No diarrhea. Patient still has her appendix. At that her pain sometimes is worse in her right lower quadrant area. Patient otherwise tolerating by mouth. The ROS documented in this emergency department record has been reviewed and confirmed by me. Those systems with pertinent positive or negative responses have been documented in the HPI. All other systems are other negative and/or noncontributory. PHYSICAL EXAM: General Impression: Alert and oriented x3, not in acute distress HEENT: Normocephalic atraumatic, extra-ocular movements intact, pupils equal and reactive to light bilaterally, mucous membranes moist. Cardiovascular: Heart regular rate and rhythm, S1&S2 audible, no murmurs, rubs or gallops Chest: Lungs clear to auscultation bilaterally, no rhonchi, no wheeze, no rales Abdomen: Bowel sounds present, abdomen soft, mild tenderness suprapubic and right lower quadrant area no rebound tenderness, negative Rovsing signs, non- distended, no organomegaly Musculoskeletal: Pulses present and equal in all extremities, no peripheral edema Motor: Power 5/5 bilaterally, no focal deficits noted Neurological: CN II-XII grossly intact, no focal motor or sensory deficits noted Skin: Intact with no visualized rashes Psych: Normal affect and mood ED course: 33-year-old female presents with abdominal pain and . Vital signs upon arrival are within acceptable limits. No clinical suspicion of acute appendicitis at this time.Laboratory evaluation obtained. CBC unremarkable. Coag panel unremarkable. Metabolic panel is unremarkable. Urinalysis unremarkable. OB ultrasound was unremarkable. Patient reevaluated resting comfortably. Patient states that her symptoms are stable. She does request a work note. Patient told to rest and pelvis leading no sexual activity. She has an appointment with her CARD STRIPPER on Wednesday. Patient told to go home and rest. Patient understandable agreeable to plan. - Related Data Home Medications Medication Instructions Recorded Confirmed 114/Iron A-G/Folate 1 1 tab PO HS 04/19/16 12/09/18 [Prenate Elite Tablet] Sertraline HCl [Zoloft] 25 mg PO DAILY 07/12/18 12/09/18 Docusate [Colace] 100 mg PO DAILY PRN 09/04/18 12/09/18 Acetaminophen/Diphenhydramine 1 tab PO HS PRN 12/09/18 12/09/18 [Tylenol PM 500-25mg] Loratadine [Claritin] 10 mg PO DAILY 12/09/18 12/09/18 Omeprazole 40 mg PO DAILY 12/09/18 12/09/18 diphenhydrAMINE HCL [Benadryl] 25 mg PO Q4H PRN 12/09/18 12/09/18 Allergies Allergy/AdvReac Type Severity Reaction Status Date / Time peanut Allergy Anaphylaxis Verified 12/09/18 11:47 shellfish derived [Shellfish] Allergy Nausea & Verified 12/09/18 11:47 Vomiting & Diarrhea tree nut Allergy Anaphylaxis Verified 12/09/18 11:47 Review of Systems ROS Statement: Those systems with pertinent positive or pertinent negative responses have been documented in the HPI. ROS Other: All systems not noted in ROS Statement are negative. Past Medical History Past Medical History: Hypertension Additional Past Medical History / Comment(s): HT during History of Any Multi-Drug Resistant Organisms: ESBL Date of last positivie culture/infection: 07/12/18 MDRO Source:: ESBL URINE Past Surgical History: No Surgical Hx Reported Additional Past Surgical History / Comment(s): wisdom teeth Past Anesthesia/Blood Transfusion Reactions: No Reported Reaction Past Psychological History: Anxiety Smoking Status: Never smoker Past Alcohol Use History: None Reported Past Drug Use History: None Reported - Past Family History Mother Additional Family Medical History / Comment(s): Hypoglycemia General Exam Limitations: no limitations Course Vital Signs 12/09/18 10:53 Temperature 98.4 F Pulse Rate 72 Respiratory 20 Rate Blood Pressure 130/73 O2 Sat by Pulse 99 Oximetry Medical Decision Making - Lab Data Result diagrams: 12/09/18 11:31 12/09/18 11:31 Lab Results 12/09/18 12/09/18 12/09/18 Range/Units 11:31 11:31 11:31 WBC 10.8 H (3.8-10.6) k/uL RBC 4.01 (3.80-5.40) m/uL Hgb 12.3 (11.4-16.0) gm/dL Hct 38.2 (34.0-46.0) % MCV 95.3 (80.0-100.0) fL MCH 30.6 (25.0-35.0) pg MCHC 32.1 (31.0-37.0) g/dL RDW 13.3 (11.5-15.5) % Plt Count 244 (150-450) k/uL Neutrophils % 79 % Lymphocytes % 14 % Monocytes % 4 % Eosinophils % 1 % Basophils % 0 % Neutrophils # 8.6 H (1.3-7.7) k/uL Lymphocytes # 1.5 (1.0-4.8) k/uL Monocytes # 0.4 (0-1.0) k/uL Eosinophils # 0.2 (0-0.7) k/uL Basophils # 0.0 (0-0.2) k/uL PT (9.0-12.0) sec INR (<1.2) Sodium 138 (137-145) mmol/L Potassium 4.4 (3.5-5.1) mmol/L Chloride 109 H (98-107) mmol/L Carbon Dioxide 21 L (22-30) mmol/L Anion Gap 8 mmol/L BUN 9 (7-17) mg/dL Creatinine 0.37 L (0.52-1.04) mg/dL Est GFR (CKD-EPI)AfAm >90 (>60 ml/min/1.73 sqM) Est GFR (CKD-EPI)NonAf >90 (>60 ml/min/1.73 sqM) Glucose 76 (74-99) mg/dL Calcium 9.4 (8.4-10.2) mg/dL Urine Color Urine Appearance (Clear) Urine pH (5.0-8.0) Ur Specific [place] (1.001-1.035) Urine Protein (Negative) Urine Glucose (UA) (Negative) Urine Ketones (Negative) Urine Blood (Negative) Urine Nitrite (Negative) Urine Bilirubin (Negative) Urine Urobilinogen (<2.0) mg/dL Ur Leukocyte Esterase (Negative) Urine WBC (0-5) /hpf Ur Squamous Epith Cells (0-4) /hpf Urine Bacteria (None) /hpf Blood Type A Positive Blood Type Recheck No Antibody Screen NEGATIVE Spec Expiration Date 12/12/2018 - 233012/09/18 12/09/18 Range/Units 11:31 11:31 WBC (3.8-10.6) k/uL RBC (3.80-5.40) m/uL Hgb (11.4-16.0) gm/dL Hct (34.0-46.0) % MCV (80.0-100.0) fL MCH (25.0-35.0) pg MCHC (31.0-37.0) g/dL RDW (11.5-15.5) % Plt Count (150-450) k/uL Neutrophils % % Lymphocytes % % Monocytes % % Eosinophils % % Basophils % % Neutrophils # (1.3-7.7) k/uL Lymphocytes # (1.0-4.8) k/uL Monocytes # (0-1.0) k/uL Eosinophils # (0-0.7) k/uL Basophils # (0-0.2) k/uL PT 9.5 (9.0-12.0) sec INR 0.9 (<1.2) Sodium (137-145) mmol/L Potassium (3.5-5.1) mmol/L Chloride (98-107) mmol/L Carbon Dioxide (22-30) mmol/L Anion Gap mmol/L BUN (7-17) mg/dL Creatinine (0.52-1.04) mg/dL Est GFR (CKD-EPI)AfAm (>60 ml/min/1.73 sqM) Est GFR (CKD-EPI)NonAf (>60 ml/min/1.73 sqM) Glucose (74-99) mg/dL Calcium (8.4-10.2) mg/dL Urine Color Colorless Urine Appearance Cloudy H (Clear) Urine pH 6.5 (5.0-8.0) Ur Specific [place] 1.005 (1.001-1.035) Urine Protein Negative (Negative) Urine Glucose (UA) Negative (Negative) Urine Ketones Negative (Negative) Urine Blood Negative (Negative) Urine Nitrite Negative (Negative) Urine Bilirubin Negative (Negative) Urine Urobilinogen <2.0 (<2.0) mg/dL Ur Leukocyte Esterase Moderate H (Negative) Urine WBC 2 (0-5) /hpf Ur Squamous Epith Cells 17 H (0-4) /hpf Urine Bacteria Many H (None) /hpf Blood Type Blood Type Recheck Antibody Screen Spec Expiration Date Disposition Clinical Impression: Pelvic pain affecting Disposition: HOME SELF-CARE Condition: Good Instructions (If sedation given, give patient instructions): Pelvic Pain in Men (ED) Is patient prescribed a controlled substance at d/c from ED?: No Referrals: Jeremiah Day MD [Primary Care Provider] - 1-2 days Esteban Constantino MD [STAFF PHYSICIAN] - 1-2 days Time of Disposition: 13:32
[2018-12-09 12:10] LABS: Anion Gap 8 mmol/L; Blood Urea Nitrogen 9 mg/dL (7-17); Calcium 9.4 mg/dL (8.4-10.2); Carbon Dioxide 21 mmol/L (22-30); Chloride 109 mmol/L (98-107); Glucose 76 mg/dL (74-99); Potassium 4.4 mmol/L (3.5-5.1); Sodium 138 mmol/L (137-145)
--- NOTE | 2018-12-09 13:14 | US ---
EXAMINATION TYPE: US OB >= 14 wk fetus DATE OF EXAM: 12/09/2018 COMPARISON: None CLINICAL HISTORY: Pain Right pelvic pain TECHNIQUE: Transabdominal (TA) GESTATIONAL AGE / DATING Physician Established: (18 weeks/2 days) EDC: 05/10/19 Dates by LMP: (18 weeks/2 days) EDC: 05/10/19 Dates by Current Scan: (19 weeks/0 days) EDC: 05/05/19 SURVEY IUP: Single PLACENTA: Anterior PREVIA: No Previa SEAN: 12.6 cm Normal CERVICAL LENGTH (transabdominal: norm > 3.0cm): 3.4 cm BIOMETRY PRESENTATION: Vertex LIE: Transverse with head maternal LT BPD: 4.3 cm 19 weeks / 0 days HC: 16.4 cm 19 weeks / 1 days AC: 14.2 cm 19 weeks / 4 days FL: 3.0 cm 19 weeks / 2 days ESTIMATED WEIGHT IN GRAMS: 291 grams ESTIMATED WEIGHT IN LBS/OZ: 0 lbs. 10 oz. WEIGHT PERCENTAGE BASED ON ESTABLISHED DATES: 96.5% HC/AC: 1.15 Normal FL/AC: 21.26 Normal HEART RATE: 145 bpm RHYTHM: Normal IMPRESSION: Single live intrauterine with a sonographic age of 19 weeks and 0 days and estimated date o f delivery of 05/05/2019, concordant with menstrual age. Amniotic fluid index and heart rate are within normal limits.
== END 2018-12-09 14:02 | disposition home or self-care (01) ==
LOC: EC 10:46
DX: O26.892 Other specified pregnancy related conditions, second trimester (principal); R10.2 Pelvic and perineal pain; O99.412 Diseases of the circulatory system complicating pregnancy, second trimester; I10 Essential (primary) hypertension; O99.342 Other mental disorders complicating pregnancy, second trimester; F41.9 Anxiety disorder, unspecified; Z3A.19 19 weeks gestation of pregnancy; Z79.899 Other long term (current) drug therapy; Z91.010 Allergy to peanuts; Z91.013 Allergy to seafood; Z91.018 Allergy to other foods
CPT/HCPCS: 36415; 76805; 80048; 81001; 85025; 85610; 86850; 86900; 86901; 99284

== ENCOUNTER 2019-02-21 16:55 | Outpatient (CLI) | payer BC, OTHER ==
[2019-02-21 17:23] LABS: Appearance,Urine Clear (Clear); Bilirubin,Urine Negative (Negative); Blood,Urine Negative (Negative); Color,Urine Yellow; Glucose,Urine (UA) Negative (Negative); Ketones,Urine Negative (Negative); Leukocyte Esterase,Urine Negative (Negative); Nitrite,Urine Negative (Negative); Protein,Urine Negative (Negative); Specific Gravity,Urine 1.014 (1.001-1.035); Urobilinogen,Urine <2.0 mg/dL (<2.0)
[2019-02-21 17:30] VITALS: BP 139/71; RESP 16; TEMP 97.3
[2019-02-21] MEDS ORDERED: ACETAMINOPHEN TAB 500 MG TAB PO STA (17:42)
[2019-02-21 18:26] LABS: Basophils % (A) 0 %; Eosinophils # (A) 0.2 k/uL (0-0.7); Eosinophils % (A) 1 %; HCT 36.1 % (34.0-46.0); HGB 11.8 gm/dL (11.4-16.0); Lymphocytes # (A) 1.5 k/uL (1.0-4.8); Lymphocytes % (A) 11 %; MCH 30.6 pg (25.0-35.0); MCHC 32.7 g/dL (31.0-37.0); MCV 93.8 fL (80.0-100.0); Mean Platelet Volume 7.4; Monocytes # (A) 0.7 k/uL (0-1.0); Monocytes % (A) 5 %; Neutrophils # (A) 11.7 k/uL (1.3-7.7); Neutrophils % (A) 82 %; Platelet Count 297 k/uL (150-450); RBC 3.85 m/uL (3.80-5.40); RDW 13.4 % (11.5-15.5); WBC 14.3 k/uL (3.8-10.6)
[2019-02-21 19:01] LABS: Uric Acid 4.2 mg/dL (3.7-7.4)
[2019-02-21] MEDS ORDERED: BETAMET ACET-BETAMETH SOD PHOS 6 MG/ML VIAL IM SCH (19:15)
[2019-02-21 19:48] VITALS: PULSE 97
--- NOTE | 2019-03-17 10:15 | P.MSEPDOC ---
Presenting Problems - Arrival Data Date of Arrival on Unit: 02/21/19 Time of Arrival on Unit: 16:57 Mode of Transport: Ambulatory - Complaint OB-Reason for Admission/Chief Complaint: Acute Nausea/Vomiting, Headache, Visual Disturbances, Elevated Blood Pressure, Dizziness Comment: Patient presents for feelings of dizziness and nausea, has a history of pre-eclampsia. Had a friend take her blood pressure at home and reported it to be 145/102. Patient states she feels find when she is sitting or lying down, but as soon as she moves she feels head pressure and gets dizzy. patient reports to having vomitted at home. Medical History - Information : 2 Para: 1 Term: 1 : 0 Abortions: Spontaneous or Elective: 0 Number of Living Children: 1 - Gestational Age Gestational Age by APRIL (wks/days): 28 Weeks and 6 Days - History Comment: History of pre-eclampsia Review of Systems - Review of Systems Constitutional: No problems Breast: No problems ENT: No problems Cardiovascular: No problems Respiratory: No problems Gastrointestinal: No problems Genitourinary: No problems Musculoskeletal: No problems Neurological: Dizziness Skin: No problems Vital Signs - Temperature Temperature: 97.3 F Temperature Source: Temporal Artery Scan - Pulse Right Sitting Pulse Rate: 97 Pulse Assessment Method: Pulse Oximetry - Respirations Respiratory Rate: 16 Oxygen Delivery Method: Room Air O2 Sat by Pulse Oximetry: 99 - Blood Pressure Right Arm Sitting Blood Pressure: 139/71 Blood Pressure Mean: 93 Blood Pressure Source: Automatic Cuff Medical Screen Scoring (Pre) - Cervical Exam Dilation: Exam Deferred Effacement: Exam Deferred Membranes: Intact - Uterine Contractions Frequency: N/A Duration: N/A Intensity: N/A - Maternal Vital Signs Maternal Temperature: N/A Maternal Blood Pressure: N/A Signs of Preeclampsia: Headache = 1, Nausea/Vomiting = 1, Visual Disturbance = 1 Maternal Respirations: N/A - Maternal Trauma Maternal Trauma: N/A - Assessment Baseline FHR: 125 Heart Rate - NICHD Category: Category I (Normal) = 0 NST: Reactive Position: N/A Station: N/A - Total Score Total Score (Pre): 3 - Level of Risk Level of Risk: Low (0-5) Physician Notification (Pre) - Physician Notified Physician Notified Date: 02/21/19 Physician Notified Time: 19:15 Physician/Practitioner Notifed:: Dr. Echavarria New Order Received: Yes - Notification Comment Comment: Give patient a dose of betamethazone now. Orders given to have patient call the office and schedule an appointment with Dr. Constantino tomorrow, patient to go home this evening and buy a home blood pressure cuff, large in size, patient to bring cuff to tomorrow's appointment to be calibrated. Patient also to return to tomorrow evening for second dose of betamethazone. Disposition - Disposition OB Disposition: Discharge to home, Written follow up instructions reviewed Discharge Date: 02/21/19 Discharge Time: 19:28 I agree with the RN Medical Screening Exam: Yes Risk & Benefit of care provided described in d/c instruction: Yes Diagnosis: RELATED CONDITIONS, UNSPECIFIED, THIRD TRIMESTER
== END 2019-02-21 19:28 | disposition home or self-care (01) ==
LOC: FBPOP 16:55
PROVIDERS: ATTEND Obstetrics & Gynecology
DX: O26.93 Pregnancy related conditions, unspecified, third trimester (principal); Z3A.28 28 weeks gestation of pregnancy
CPT/HCPCS: 59025; 99215; 96372; 84450; 84460; 84550; 85025; 81003; J0702

== ENCOUNTER 2019-02-22 18:19 | Outpatient (CLI) | payer BC, OTHER ==
[2019-02-22] MEDS ORDERED: BETAMET ACET-BETAMETH SOD PHOS 6 MG/ML VIAL IM SCH (18:30)
[2019-02-22 18:38] VITALS: BP 134/73; PULSE 78; RESP 16; TEMP 98.1
--- NOTE | 2019-03-17 10:16 | P.MSEPDOC ---
Presenting Problems - Arrival Data Date of Arrival on Unit: 02/22/19 Time of Arrival on Unit: 18:19 Mode of Transport: Ambulatory - Complaint OB-Reason for Admission/Chief Complaint: Celestone Injection Medical History - Information : 2 Para: 1 Number of Living Children: 1 - Gestational Age Gestational Age by APRIL (wks/days): 29 Weeks and 0 Days Review of Systems - Review of Systems Constitutional: No problems Breast: No problems ENT: No problems Cardiovascular: No problems Respiratory: No problems Gastrointestinal: No problems Genitourinary: No problems Musculoskeletal: No problems Neurological: No problems Skin: No problems Vital Signs - Temperature Temperature: 98.1 F Temperature Source: Tympanic - Pulse Right Sitting Brachial Pulse Rate: 78 Pulse Assessment Method: Automatic Cuff - Respirations Respiratory Rate: 16 Oxygen Delivery Method: Room Air O2 Sat by Pulse Oximetry: 98 - Blood Pressure Right Arm Sitting Blood Pressure: 134/73 Blood Pressure Mean: 93 Blood Pressure Source: Automatic Cuff Medical Screen Scoring (Pre) - Cervical Exam Dilation: Exam Deferred Effacement: Exam Deferred - Uterine Contractions Frequency: N/A Duration: N/A Intensity: N/A - Maternal Vital Signs Maternal Temperature: N/A Maternal Blood Pressure: N/A Signs of Preeclampsia: N/A Maternal Respirations: N/A - Maternal Trauma Maternal Trauma: N/A - Assessment Baseline FHR: 130 Heart Rate - NICHD Category: Category I (Normal) = 0 NST: Reactive Position: N/A Station: N/A - Total Score Total Score (Pre): 0 - Level of Risk Level of Risk: Low (0-5) Medical Screen Scoring (Post) - Uterine Contractions Frequency: N/A Duration: N/A Intensity: N/A - Maternal Vital Signs Maternal Temperature: N/A Maternal Blood Pressure: N/A Signs of Preeclampsia: Headache = 1 Maternal Respirations: N/A - Pain Assessment Pain Location and Character: Head Pain Scale Used: Numeric (1 - 10) Pain Intensity: 0 Pain Management Goal: 0 Pain Frequency: Intermittent Pain Duration Units: Hours Pain Behavior: None Exhibited - Maternal Trauma Maternal Trauma: N/A - Assessment Heart Rate: 130 Heart Rate - NICHD Category: Category I (Normal) = 0 NST: Reactive Position: N/A Station: N/A - Total Score Total Score (Post): 1 - Post Treatment Level of Risk Post Treatment Level of Risk: Low (0-5) Physician Notification (Post) - Physician Notified Physician Notified Date: 02/22/19 Physician Notified Time: 18:47 Physician/Practitioner Notified:: Dougie Spoke With: Dougie New Order Received: No - Notification Comment Comment: pt here for 2nd celestone injection Disposition - Disposition OB Disposition: Discharge to home Discharge Date: 02/22/19 Discharge Time: 18:49 I agree with the RN Medical Screening Exam: Yes Risk & Benefit of care provided described in d/c instruction: Yes Diagnosis: RELATED CONDITIONS, UNSPECIFIED, THIRD TRIMESTER
== END 2019-02-22 18:49 | disposition home or self-care (01) ==
LOC: FBPOP 18:19
PROVIDERS: ATTEND Obstetrics & Gynecology
DX: O26.93 Pregnancy related conditions, unspecified, third trimester (principal); Z3A.29 29 weeks gestation of pregnancy
CPT/HCPCS: 59025; 99214; 96372; J0702

== ENCOUNTER → 2019-02-27 | Outpatient (CLI) | payer BC, OTHER ==
--- NOTE | 2019-02-27 08:04 | US ---
EXAMINATION TYPE: US gallbladder DATE OF EXAM: 02/27/2019 COMPARISON: None CLINICAL HISTORY: 33-year-old female R74.8 elevated liver enzymes. Abnormal labs, no previous surgery , NPO TECHNIQUE: Multiple sonographic images of the right upper quadrant are obtained. FINDINGS: EXAM MEASUREMENTS: Liver Length: 19.6 cm Gallbladder Wall: 0.2 cm CBD: 0.3 cm Right Kidney: 11.0 x 5.7 x 5.5 cm Pancreas: wnl Liver: appears enlarged in size Gallbladder: wnl Evidence for sonographic Locke's sign: neg CBD: wnl Right Kidney: wnl IMPRESSION: Mild hepatomegaly (19.6 cm). No biliary ductal dilatation or cholelithiasis.
== END ==
LOC: RADUSWWP 06:53
PROVIDERS: ATTEND Obstetrics & Gynecology
DX: R16.0 Hepatomegaly, not elsewhere classified (principal)
CPT/HCPCS: 76705

== ENCOUNTER → 2019-03-16 | Outpatient (CLI) | payer BC, OTHER ==
[2019-03-16 08:34] LABS: HCT 36.6 % (34.0-46.0); HGB 11.9 gm/dL (11.4-16.0); MCH 29.8 pg (25.0-35.0); MCHC 32.6 g/dL (31.0-37.0); MCV 91.5 fL (80.0-100.0); Mean Platelet Volume 7.5; Platelet Count 238 k/uL (150-450); RDW 13.2 % (11.5-15.5); WBC 11.5 k/uL (3.8-10.6)
[2019-03-16 16:32] LABS: Albumin 3.7 g/dL (3.80-4.90); Albumin/Globulin Ratio 1.54 (1.60-3.17); Anion Gap 8.1 mmol/L (4.00-12.00); Calcium 8.8 mg/dL (8.7-10.3); Carbon Dioxide 23.9 mmol/L (21.6-31.8); Globulin 2.4 g/dL (1.6-3.3); Potassium 4.5 mmol/L (3.5-5.5); Total Bilirubin 0.3 mg/dL (0.2-1.2); Total Protein 6.1 g/dL (6.2-8.2)
== END | disposition home or self-care (01) ==
LOC: LABWHC1 08:09
PROVIDERS: ATTEND Obstetrics & Gynecology
DX: R74.0 Nonspecific elevation of levels of transaminase and lactic acid dehydrogenase [LDH] (principal)
CPT/HCPCS: 36415; 80053; 82239; 85027

== ENCOUNTER → 2019-03-25 | Outpatient (CLI) | payer BC, OTHER ==
[2019-03-25 16:49] LABS: Albumin 3.7 g/dL (3.80-4.90); Albumin/Globulin Ratio 1.48 (1.60-3.17); Anion Gap 10.2 mmol/L (4.00-12.00); Carbon Dioxide 22.8 mmol/L (21.6-31.8); Globulin 2.5 g/dL (1.6-3.3); Potassium 4.2 mmol/L (3.5-5.5); Total Bilirubin 0.4 mg/dL (0.3-1.2); Total Protein 6.2 g/dL (6.2-8.2)
== END | disposition home or self-care (01) ==
LOC: LABWHC1 10:13
PROVIDERS: ATTEND Obstetrics & Gynecology
DX: O99.89 Other specified diseases and conditions complicating pregnancy, childbirth and the puerperium (principal); R79.89 Other specified abnormal findings of blood chemistry; Z3A.33 33 weeks gestation of pregnancy
CPT/HCPCS: 36415; 80053; 82239

== ENCOUNTER → 2019-03-30 | Outpatient (CLI) | payer BC, OTHER ==
[2019-03-30 16:53] LABS: African American GFR (CKD) 149.5 (60.0-200.0); Albumin 3.6 g/dL (3.80-4.90); Albumin/Globulin Ratio 1.33 (1.60-3.17); Calcium 8.7 mg/dL (8.7-10.3); Globulin 2.7 g/dL (1.6-3.3); Total Bilirubin 0.3 mg/dL (0.3-1.2); Total Protein 6.3 g/dL (6.2-8.2)
== END | disposition home or self-care (01) ==
LOC: LABWHC1 08:45
PROVIDERS: ATTEND Obstetrics & Gynecology
DX: R94.5 Abnormal results of liver function studies (principal)
CPT/HCPCS: 36415; 80053; 82239

== ENCOUNTER 2019-04-01 20:15 | Outpatient (CLI) | payer BC, OTHER ==
[2019-04-01] MEDS ORDERED: ACETAMINOPHEN TAB 500 MG TAB PO STA (21:01)
[2019-04-01 21:22] LABS: Appearance,Urine Clear (Clear); Bilirubin,Urine Negative (Negative); Blood,Urine Negative (Negative); Color,Urine Colorless; Glucose,Urine (UA) Negative (Negative); Ketones,Urine Negative (Negative); Leukocyte Esterase,Urine Negative (Negative); Nitrite,Urine Negative (Negative); Protein,Urine Negative (Negative); Specific Gravity,Urine 1.003 (1.001-1.035); Urobilinogen,Urine <2.0 mg/dL (<2.0)
[2019-04-01 21:42] VITALS: BP 133/90; PULSE 104; RESP 16; TEMP 96.6
--- NOTE | 2019-04-05 07:06 | P.MSEPDOC ---
Presenting Problems - Arrival Data Date of Arrival on Unit: 04/01/19 Time of Arrival on Unit: 20:15 Mode of Transport: Wheelchair - Complaint OB-Reason for Admission/Chief Complaint: Acute Nausea/Vomiting, Headache, Visual Disturbances, Elevated Blood Pressure Comment: Pt states at home bp of 160/90 Medical History - Information : 2 Para: 1 Term: 1 : 0 Abortions: Spontaneous or Elective: 0 Number of Living Children: 1 - Gestational Age Gestational Age by APRIL (wks/days): 34 Weeks and 3 Days Review of Systems - Review of Systems Constitutional: No problems Breast: No problems ENT: No problems Cardiovascular: No problems Respiratory: No problems Gastrointestinal: No problems Genitourinary: No problems Musculoskeletal: No problems Neurological: No problems Skin: No problems Vital Signs - Temperature Temperature: 96.6 F Temperature Source: Temporal Artery Scan - Pulse Right Brachial Pulse Rate: 104 Pulse Assessment Method: Automatic Cuff - Respirations Respiratory Rate: 16 Oxygen Delivery Method: Room Air O2 Sat by Pulse Oximetry: 98 - Blood Pressure Right Arm Blood Pressure: 133/90 Blood Pressure Mean: 104 Blood Pressure Source: Automatic Cuff Medical Screen Scoring (Pre) - Cervical Exam Dilation: Exam Deferred Effacement: Exam Deferred - Uterine Contractions Frequency: > 5 minutes apart = 1 Duration: > 40 seconds = 2 - Maternal Vital Signs Maternal Temperature: N/A Maternal Blood Pressure: N/A Signs of Preeclampsia: Headache = 1, Nausea/Vomiting = 1, Epigastric Pain = 1 - Assessment - Baby A Baseline FHR: 135 Heart Rate - NICHD Category: Category I (Normal) = 0 NST: Reactive Position: N/A Station: N/A - Total Score - Baby A Total Score - Baby A: 6 - Total Score - Baby B Total Score - Baby B: 6 - Total Score - Baby C Total Score - Baby C: 6 - Level of Risk - Baby A Level of Risk - Baby A: Medium (6-9) - Level of Risk - Baby B Level of Risk - Baby B: Medium (6-9) - Level of Risk - Baby C Level of Risk - Baby C: Medium (6-9) Physician Notification (Pre) - Physician Notified Physician Notified Date: 04/01/19 Physician Notified Time: 20:59 Spoke With: Dr. Echavarria New Order Received: Yes - Notification Comment Comment: BP of 133/90, 127/75 on arrival reported. Pt to be given 1000 mg of tylenol, and send UA to check protein. Physician Notification (Post) - Notification Comment Comment: UA negative for protein, pt d/c home and follow up Wednesday at 0845 Disposition - Disposition OB Disposition: Discharge to home, Written follow up instructions reviewed Discharge Date: 04/01/19 Discharge Time: 21:28 I agree with the RN Medical Screening Exam: Yes Risk & Benefit of care provided described in d/c instruction: Yes Diagnosis: RELATED CONDITIONS, UNSPECIFIED, THIRD TRIMESTER
== END 2019-04-01 21:30 | disposition home or self-care (01) ==
LOC: FBPOP 20:15
PROVIDERS: ATTEND Obstetrics & Gynecology
DX: O26.93 Pregnancy related conditions, unspecified, third trimester (principal); Z3A.34 34 weeks gestation of pregnancy
CPT/HCPCS: 59025; 81003; 99213

== ENCOUNTER → 2019-04-06 | Outpatient (CLI) | payer BC, OTHER ==
[2019-04-06 11:55] LABS: African American GFR (CKD) 149.5 (60.0-200.0); Albumin 3.6 g/dL (3.80-4.90); Albumin/Globulin Ratio 1.33 (1.60-3.17); Anion Gap 7.3 mmol/L (4.00-12.00); Calcium 8.8 mg/dL (8.7-10.3); Carbon Dioxide 25.7 mmol/L (21.6-31.8); Globulin 2.7 g/dL (1.6-3.3); Potassium 4.5 mmol/L (3.5-5.5); Total Bilirubin 0.2 mg/dL (0.3-1.2); Total Protein 6.3 g/dL (6.2-8.2)
== END | disposition home or self-care (01) ==
LOC: LABWHC1 07:25
PROVIDERS: ATTEND Obstetrics & Gynecology
DX: R79.89 Other specified abnormal findings of blood chemistry (principal)
CPT/HCPCS: 36415; 80053; 82239

== ENCOUNTER 2019-04-14 21:45 | Outpatient (CLI) | payer BC, OTHER ==
[2019-04-14 22:28] LABS: Appearance,Urine Clear (Clear); Bilirubin,Urine Negative (Negative); Blood,Urine Negative (Negative); Color,Urine Colorless; Glucose,Urine (UA) Negative (Negative); Ketones,Urine Negative (Negative); Leukocyte Esterase,Urine Negative (Negative); Nitrite,Urine Negative (Negative); Protein,Urine Negative (Negative); Specific Gravity,Urine 1.003 (1.001-1.035); Urobilinogen,Urine <2.0 mg/dL (<2.0)
[2019-04-14 23:30] VITALS: BP 101/55; PULSE 90; RESP 16; TEMP 98.7
--- NOTE | 2019-05-02 09:14 | P.MSEPDOC ---
Presenting Problems - Arrival Data Date of Arrival on Unit: 04/14/19 Time of Arrival on Unit: 21:45 Mode of Transport: Ambulatory - Complaint OB-Reason for Admission/Chief Complaint: Elevated Blood Pressure Comment: pt states her blood pressure was elevated at home Medical History - Information : 2 Para: 1 Term: 1 : 0 Abortions: Spontaneous or Elective: 0 Number of Living Children: 1 - Gestational Age Gestational Age by APRIL (wks/days): 36 Weeks and 2 Days - History Comment: cholistasis Review of Systems - Review of Systems Constitutional: No problems Breast: No problems ENT: No problems Cardiovascular: No problems Respiratory: No problems Gastrointestinal: No problems Genitourinary: No problems Musculoskeletal: No problems Neurological: No problems Skin: No problems Vital Signs - Temperature Temperature: 98.7 F - Pulse Right Sitting Brachial Pulse Rate: 90 Pulse Assessment Method: Automatic Cuff - Respirations Respiratory Rate: 16 O2 Sat by Pulse Oximetry: 97 - Blood Pressure Right Arm Sitting Blood Pressure: 101/55 Blood Pressure Mean: 70 Blood Pressure Source: Automatic Cuff Medical Screen Scoring (Pre) - Cervical Exam Dilation: 1-3 cm = 1 Membranes: Intact - Uterine Contractions Frequency: N/A Duration: N/A Intensity: N/A - Maternal Vital Signs Maternal Temperature: N/A Maternal Blood Pressure: N/A Signs of Preeclampsia: N/A Maternal Respirations: N/A - Maternal Trauma Maternal Trauma: N/A - Assessment - Baby A Baseline FHR: 145 Heart Rate - NICHD Category: Category I (Normal) = 0 NST: Reactive - Total Score - Baby A Total Score - Baby A: 1 - Total Score - Baby B Total Score - Baby B: 1 - Total Score - Baby C Total Score - Baby C: 1 - Level of Risk - Baby A Level of Risk - Baby A: Low (0-5) - Level of Risk - Baby B Level of Risk - Baby B: Low (0-5) - Level of Risk - Baby C Level of Risk - Baby C: Low (0-5) Medical Screen Scoring (Post) - Cervical Exam Dilation: 1-3 cm = 1 - Uterine Contractions Frequency: N/A Duration: N/A Intensity: N/A - Maternal Vital Signs Maternal Temperature: N/A Maternal Blood Pressure: N/A Signs of Preeclampsia: N/A Maternal Respirations: N/A - Maternal Trauma Maternal Trauma: N/A - Assessment - Baby A Heart Rate: 135 Heart Rate - NICHD Category: Category I (Normal) = 0 NST: Reactive - Total Score Total Score - Baby A: 1 Total Score - Baby B: 1 Total Score - Baby C: 1 - Post Treatment Level of Risk Post Treatment Level of Risk - Baby A: Low (0-5) Physician Notification (Post) - Physician Notified Physician Notified Date: 04/14/19 Physician Notified Time: 22:38 Physician/Practitioner Notified:: Johnnie New Order Received: Yes Disposition - Disposition OB Disposition: Discharge to home, Written follow up instructions reviewed Discharge Date: 04/14/19 Discharge Time: 22:45 I agree with the RN Medical Screening Exam: Yes Risk & Benefit of care provided described in d/c instruction: Yes Diagnosis: OTHER SPECIFIED COMPLICATIONS OF LABOR AND DELIVERY
== END 2019-04-14 22:45 | disposition home or self-care (01) ==
LOC: FBPOP 21:45
PROVIDERS: ATTEND Obstetrics & Gynecology Obstetrics
DX: O75.89 Other specified complications of labor and delivery (principal); Z3A.36 36 weeks gestation of pregnancy
CPT/HCPCS: 59025; 81003; 99213

== ENCOUNTER 2019-04-17 22:45 | Outpatient (CLI) | payer BC, OTHER ==
[2019-04-17 23:37] VITALS: BP 132/74; PULSE 102; RESP 14; TEMP 96.7
--- NOTE | 2019-04-29 09:46 | P.MSEPDOC ---
Presenting Problems - Arrival Data Date of Arrival on Unit: 04/17/19 Time of Arrival on Unit: 22:45 Mode of Transport: Ambulatory - Complaint OB-Reason for Admission/Chief Complaint: Possible Onset of Labor, Rule Out PROM Comment: pt complains of contractions every 4-6 minutes and possible rupture of membranes Medical History - Information : 2 Para: 1 Term: 1 : 0 Abortions: Spontaneous or Elective: 0 Number of Living Children: 1 - Gestational Age Gestational Age by APRIL (wks/days): 36 Weeks and 5 Days - History Complications: GBS+, Other Comment: cholesthasis Review of Systems - Review of Systems Constitutional: No problems Breast: No problems ENT: No problems Cardiovascular: No problems Respiratory: No problems Gastrointestinal: No problems Genitourinary: No problems Musculoskeletal: No problems Neurological: No problems Skin: No problems Vital Signs - Temperature Temperature: 96.7 F Temperature Source: Temporal Artery Scan - Pulse Right Pulse Rate: 102 Pulse Assessment Method: Pulse Oximetry - Respirations Respiratory Rate: 14 Oxygen Delivery Method: Room Air O2 Sat by Pulse Oximetry: 97 - Blood Pressure Right Arm Blood Pressure: 132/74 Blood Pressure Mean: 93 Blood Pressure Source: Automatic Cuff Medical Screen Scoring (Pre) - Cervical Exam Dilation: 1-3 cm = 1 Effacement: More than 50% = 2 Membranes: Intact - Uterine Contractions Frequency: > or = 36 weeks =2 Duration: > 40 seconds = 2 - Maternal Vital Signs Maternal Temperature: N/A Maternal Blood Pressure: N/A Signs of Preeclampsia: N/A Maternal Respirations: N/A - Maternal Trauma Maternal Trauma: N/A - Assessment - Baby A Baseline FHR: 125 Heart Rate - NICHD Category: Category I (Normal) = 0 NST: Reactive Position: N/A Station: N/A - Total Score - Baby A Total Score - Baby A: 7 - Total Score - Baby B Total Score - Baby B: 7 - Total Score - Baby C Total Score - Baby C: 7 - Level of Risk - Baby A Level of Risk - Baby A: Medium (6-9) - Level of Risk - Baby B Level of Risk - Baby B: Medium (6-9) - Level of Risk - Baby C Level of Risk - Baby C: Medium (6-9) Physician Notification (Pre) - Physician Notified Physician Notified Date: 04/17/19 Physician Notified Time: 23:50 Physician/Practitioner Notifed:: Dr Brown Spoke With: Dr Brown New Order Received: Yes - Notification Comment Comment: orders that pt could stay another hour if wanted, if not, ok to discharge pt home Disposition - Disposition OB Disposition: Discharge to home Discharge Date: 04/18/19 Discharge Time: 00:10 I agree with the RN Medical Screening Exam: Yes Risk & Benefit of care provided described in d/c instruction: Yes Diagnosis: FALSE LABOR BEFORE 37 COMPLETED WEEKS OF GEST, THIRD TRI
== END 2019-04-18 00:10 | disposition home or self-care (01) ==
LOC: FBPOP 22:45
PROVIDERS: ATTEND Obstetrics & Gynecology
DX: O47.03 False labor before 37 completed weeks of gestation, third trimester (principal); Z3A.36 36 weeks gestation of pregnancy
CPT/HCPCS: 59025; 84112; 99213

== ENCOUNTER 2019-04-19 06:00 | Inpatient (IN) | payer BC, OTHER ==
[2019-04-19] MEDS ORDERED: METHYLERGONOVINE 0.2 MG/ML 1 ML AMP IM PRN (06:39)
[2019-04-19] MEDS ORDERED: CARBOPROST TROMETHAMINE 250 MCG/ML 1 ML AMP IM PRN (06:39)
[2019-04-19] MEDS ORDERED: LIDOCAINE 0.5% (PF) 5 MG/ML (50 ML SDV) SQ PRN (06:39)
[2019-04-19] MEDS ORDERED: OXYTOCIN 10 UNIT/ML 1 ML VIAL IM PRN (06:39)
[2019-04-19] MEDS ORDERED: TERBUTALINE 1 MG/ML VIAL SQ PRN (06:39)
[2019-04-19] MEDS ORDERED: PENICILLIN G POTASSIUM 5,000,000 UNIT in DEXTROSE 5% IN WATER 100 ML IVPB STA ×2 (06:42)
[2019-04-19 06:43] VITALS: BMI 40.2
[2019-04-19] MEDS ORDERED: OXYTOCIN 30 UNITS/500 ML NS 30 UNIT in SALINE 1 500ML.BAG IV SCH (06:45)
[2019-04-19] MEDS ORDERED: LACTATED RINGERS 1,000 ML IV SCH (06:45)
[2019-04-19] MEDS: LACTATED RINGERS 1,000 ML IV SCH ×2 (06:46→17:25)
[2019-04-19 07:43] LABS: Basophils % (A) 0 %; Eosinophils # (A) 0.1 k/uL (0-0.7); Eosinophils % (A) 1 %; HCT 35.9 % (34.0-46.0); HGB 11.7 gm/dL (11.4-16.0); Lymphocytes # (A) 1.6 k/uL (1.0-4.8); Lymphocytes % (A) 13 %; MCH 29.6 pg (25.0-35.0); MCHC 32.6 g/dL (31.0-37.0); MCV 90.8 fL (80.0-100.0); Mean Platelet Volume 7.6; Monocytes # (A) 0.5 k/uL (0-1.0); Monocytes % (A) 4 %; Neutrophils # (A) 9.8 k/uL (1.3-7.7); Neutrophils % (A) 80 %; Platelet Count 259 k/uL (150-450); RBC 3.96 m/uL (3.80-5.40); RDW 13.4 % (11.5-15.5); WBC 12.2 k/uL (3.8-10.6)
[2019-04-19] MEDS ORDERED: BUTORPHANOL 1 MG/ML 1 ML VIAL IV PRN (08:28)
--- NOTE | 2019-04-19 08:33 | P.HPOB ---
History of Present Illness H&P Date: 04/19/19 Chief Complaint: 37-0/7 weeks, cholestasis of The patient is a 33-year-old 2 para 1001 admitted at 37-0/7 weeks as established by last menstrual period and confirmed by six-week ultrasound. She was found at approximately 29 weeks of to have randomly elevated liver function tests and was sent for maternal medicine consultation at which time they ultimately concluded that the patient had undiagnosed cholestasis of . Her bile acids never elevated of but liver functions remained randomly elevated and occasionally normal. She did have the standard itching of both mother and thenar variety. testing has been reassuring twice weekly and growth ultrasounds have been normal as well. 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 Obstetrical history: 2 para 1001 with 1 previous term delivery, K by preeclampsia and elevated liver functions similar to this . Current statistics are listed in history of present illness. EDC of 05/10/2019 was established by last menstrual period and confirmed by 6 week ultrasound. Laboratory workup demonstrates a blood type of A+ with a negative antibody screen. Rubella status is immune. The remainder of the laboratory workup was within normal limits. Early Glucola as well as second trimester Glucola were within normal limits and group B strep status is positive. As noted above, liver function tests have been randomly elevated and occasionally normal. 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 Review of Systems Review of systems is confined to history of present illness. Past Medical History Past Medical History: Hypertension Additional Past Medical History / Comment(s): HT during History of Any Multi-Drug Resistant Organisms: ESBL Date of last positivie culture/infection: 07/12/18 MDRO Source:: ESBL URINE Past Surgical History: No Surgical Hx Reported Additional Past Surgical History / Comment(s): wisdom teeth Past Anesthesia/Blood Transfusion Reactions: No Reported Reaction Past Psychological History: Anxiety Smoking Status: Never smoker Past Alcohol Use History: None Reported Past Drug Use History: None Reported - Past Family History Mother Additional Family Medical History / Comment(s): Hypoglycemia Medications and Allergies Home Medications Medication Instructions Recorded Confirmed Type 114/Iron A-G/Folate 1 1 tab PO HS 04/19/16 04/19/19 History [Prenate Elite Tablet] Sertraline HCl [Zoloft] 25 mg PO DAILY 07/12/18 04/19/19 History Omeprazole 40 mg PO DAILY 12/09/18 04/19/19 History Ursodiol 300 mg PO TID 04/01/19 04/19/19 History hydrOXYzine HCL 25 mg PO TID 04/01/19 04/19/19 History Allergies Allergy/AdvReac Type Severity Reaction Status Date / Time peanut Allergy Anaphylaxis Verified 04/19/19 06:36 shellfish derived [Shellfish] Allergy Nausea & Verified 04/19/19 06:36 Vomiting & Diarrhea tree nut Allergy Anaphylaxis Verified 04/19/19 06:36 Exam Vital Signs Temp Pulse Resp BP 04/19/19 06:40 97.1 F L 89 18 141/92 Intake and Output 04/18/19 04/19/19 04/19/19 22:59 06:59 14:59 Other: Weight 109.769 kg In general, this is a moderately obese white female in no acute distress. Her heart has a regular rhythm and rate without murmur. Her lungs are clear to aus cultation bilaterally in all llanes. Her abdomen is gravid, nondistended, has normal active bowel sounds, is soft, nontender, and without any palpable masses aside from uterine fundus. Her extremities are without any cyanosis, clubbing, or edema and are nontender to palpation bilaterally. Digital cervical examination demonstrates her cervix to be 2-3 cm dilated, approximately 60% effaced, with the vertex in presentation at -2-3 station. Artificial rupture of membranes is carried out demonstrating clear fluid. Results Result Diagrams: 04/19/19 06:45 Abnormal Lab Results - Last 24 Hours (Table) 04/19/19 Range/Units 06:45 WBC 12.2 H (3.8-10.6) k/uL Neutrophils # 9.8 H (1.3-7.7) k/uL Assessment and Plan (1) Cholestasis during Current Visit: Yes Status: Acute Code(s): O26.619 - LIVER AND BILIARY TRACT DISORD IN , UNSP TRIMESTER; K83.1 - OBSTRUCTION OF BILE DUCT SNOMED Code(s): 622016645 (2) 37 weeks gestation of Current Visit: Yes Status: Acute Code(s): Z3A.37 - 37 WEEKS GESTATION OF SNOMED Code(s): 89389535 Plan: Antibiotic prophylaxis has been started for group B strep. Recommendation for delivery at 37 weeks has been made by maternal medicine given the d iagnosis of cholestasis of . She has had Pitocin augmentation started and will have close maternal and surveillance. Expectant management will be practiced. She is a good candidate for either IV or epidural analgesia, whichever she may choose.
[2019-04-19] MEDS ORDERED: SODIUM CHLORIDE 0.9% 100 ML BAG ONE (11:07)
[2019-04-19] MEDS ORDERED: ROPIVACAINE 5MG/ML 20ML VIAL ONE (11:07)
[2019-04-19] MEDS ORDERED: fentaNYL (PF) 50 MCG/ML 5 ML AMP ONE (11:07)
[2019-04-19] MEDS ORDERED: ROPIVACAINE 100 MG, fentaNYL (PF) 200 MCG in SODIUM CHLORIDE 0.9% 76 ML EPIDURAL ONE (11:34)
[2019-04-19] MEDS: PENICILLIN G POTASSIUM 2,500,000 UNIT in DEXTROSE 5% IN WATER 100 ML IVPB SCH ×6 (11:47→21:51)
[2019-04-19] MEDS ORDERED: ZOLPIDEM 5 MG TAB PO PRN (19:06)
[2019-04-19] MEDS ORDERED: HYDROCORTISONE 2.5% RECTAL CREAM 30 GM TUBE RECTAL PRN (19:06)
[2019-04-19] MEDS ORDERED: SIMETHICONE 80 MG CHEWABLE PO PRN (19:06)
[2019-04-19] MEDS ORDERED: diphenhydrAMINE 25 MG CAP PO PRN (19:06)
[2019-04-19] MEDS ORDERED: diphenhydrAMINE 50 MG CAP PO PRN (19:06)
[2019-04-19] MEDS ORDERED: diphenhydrAMINE 50 MG/ML 1 ML VIAL IVP PRN ×2 (19:06)
[2019-04-19] MEDS ORDERED: diphenhydrAMINE ELIXIR 25 MG/10 ML CUP PO PRN (19:06)
[2019-04-19] MEDS ORDERED: WITCH HAZEL 1 EACH MED..PAD TOPICAL PRN (19:06)
[2019-04-19] MEDS ORDERED: BENZOCAINE/MENTHOL SPRAY 1 GM/SPRAY AEROSOL TOPICAL PRN (19:06)
[2019-04-19] MEDS ORDERED: LANOLIN CREAM 5 GM TUBE TOPICAL PRN (19:06)
--- NOTE | 2019-04-19 19:06 | P.PROBDLV ---
Vaginal Delivery Note - . Vaginal Delivery Note: This is a 33-year-old white female 2 para 1001 EDC 05/10/2019 at 37 and one sevenths weeks' gestation. Patient presented for induction by recommendation of the maternal medicine high-risk specialists. She has a history of elevated liver enzymes, suspect cholestasis of . Reasonably favorable multiparous cervix was noted. Please see dictated history and physical for details. Blood type A+, rubella status immune, group B strep cultures positive. Artificial amniorrhexis revealed clear fluid. Oxytocin was started and titrated per hospital protocol. She requested and received an epidural without difficulties. She became completely dilated at 1823 hrs. She began the second stage of labor at that time. Perineal body was prepped and draped in usual sterile fashion. With excellent maternal expulsive efforts the infant's head delivered occiput anterior. He restituted accordingly. There was a nuchal cord 1 that was reduced on the perineal body. The right or anterior shoulder was then delivered easily from underneath the pubic symphysis at which time the oropharynx, nasopharynx, and external nares were all bulb suctioned. Patient was officially delivered of a liveborn male infant at 1841 hours. The uterus is then massaged. Placenta delivered spontaneously, it was inspected and noted to be intact with trivascular cord at 1843 hours. Inspection now of the cervix, vagina, perineum, periurethral, and perirectal areas revealed a very small first-degree very superficial laceration of the right labial minora. It was not bleeding, small, and therefore left to heal by secondary intention. Fundus is firm and in the midline, symmetric and 18 week size. Infant weighed 6 lbs. 15 oz. or 3145 g. All sponge needle and enhancement counts are correct at the end of the procedure. Patient and her are requesting circumcision further infant son.
[2019-04-19] MEDS ORDERED: OXYTOCIN 20 UNITS/1000 ML NS 1,000 ML IV SCH (19:15)
[2019-04-19] MEDS: SENNOSIDES-DOCUSATE SODIUM 1 EACH TAB PO SCH (19:24)
[2019-04-19] MEDS: IBUPROFEN 600 MG TAB PO PRN (19:25)
[2019-04-19] MEDS: ACETAMINOPHEN TAB 325 MG TAB PO PRN (21:45)
[2019-04-20] MEDS: IBUPROFEN 600 MG TAB PO PRN ×3 (01:50→17:54)
[2019-04-20] MEDS: ACETAMINOPHEN TAB 325 MG TAB PO PRN ×3 (03:00→19:41)
[2019-04-20] MEDS: SENNOSIDES-DOCUSATE SODIUM 1 EACH TAB PO SCH ×2 (07:47→19:41)
--- NOTE | 2019-04-20 08:52 | P.DS ---
Providers Date of admission: 04/19/19 06:30 Expected date of discharge: 04/20/19 Attending physician: Esteban Constantino Primary care physician: Stated None - Discharge Diagnosis(es) (1) 37 weeks gestation of Current Visit: Yes Status: Acute (2) Cholestasis during Current Visit: Yes Status: Acute (3) Group B streptococcal infection in Current Visit: Yes Status: Acute (4) Normal spontaneous vaginal delivery Current Visit: Yes Status: Acute Hospital Course: This is a 33-year-old 2 now para 2 woman who was admitted for induction of labor at 37 and one sevenths weeks gestation for history of maternal cholestasis of . She had intermittent elevated liver function studies. Following admission she underwent a Pitocin induction of labor with artificial rupture of membranes. She had an unremarkable first stage of labor and a rapid second stage of labor. There was a nuchal cord 1. She was delivered of a liveborn male weighing 6 lbs. 15 oz. Please see the delivery summary for details. Her postoperative course was unremarkable. By postoperative day #1 she was ambulating and voiding without difficulty, her lochia was minimal and she was breast-feeding successfully. She was therefore discharged home with routine instructions for care and follow-up. Procedures: Normal spontaneous vaginal delivery Patient Condition at Discharge: Good Plan - Discharge Summary New Discharge Prescriptions: Discontinued Ursodiol 300 mg PO TID No Action 114/Iron A-G/Folate 1 [Prenate Elite Tablet] 1 tab PO HS Sertraline HCl [Zoloft] 25 mg PO DAILY Omeprazole 40 mg PO DAILY hydrOXYzine HCL 25 mg PO TID Discharge Medication List 114/Iron A-G/Folate 1 [Prenate Elite Tablet] 1 tab PO HS 04/19/16 [History] Sertraline HCl [Zoloft] 25 mg PO DAILY 07/12/18 [History] Omeprazole 40 mg PO DAILY 12/09/18 [History] hydrOXYzine HCL 25 mg PO TID 04/01/19 [History] Follow up Appointment(s)/Referral(s): Esteban Constantino MD [STAFF PHYSICIAN] - 2 Weeks (For repeat LFTs) Activity/Diet/Wound Care/Special Instructions: Follow-up in the office in 6 weeks . Call with any concerning signs or symptoms including heavy vaginal bleeding, severe abdominal pain, fever greater than 101, swelling or redness of the lower extremities, foul vaginal discharge, or signs of depression. Nothing in the vagina for 6 weeks after delivery, specifically no intercourse. Discharge Disposition: HOME SELF-CARE
[2019-04-21] MEDS: IBUPROFEN 600 MG TAB PO PRN ×2 (03:07→08:43)
[2019-04-21] MEDS: SENNOSIDES-DOCUSATE SODIUM 1 EACH TAB PO SCH (08:43)
[2019-04-21 09:01] VITALS: BP 142/87; PULSE 92; RESP 18; TEMP 98.4
== END 2019-04-21 11:40 | disposition home or self-care (01) | DRG 805 ==
LOC: 4FBP 06:30
PROVIDERS: ADMIT Obstetrics & Gynecology; ATTEND Obstetrics & Gynecology
PROC: 10E0XZZ Delivery of Products of Conception, External Approach (ICD-10-PCS; principal; 2019-04-19)
PROC: 10907ZC Drainage of Amniotic Fluid, Therapeutic from Products of Conception, Via Natural or Artificial Opening (ICD-10-PCS; 2019-04-19)
PROC: 3E033VJ Introduction of Other Hormone into Peripheral Vein, Percutaneous Approach (ICD-10-PCS; 2019-04-19)
PROC: 0HQ9XZZ Repair Perineum Skin, External Approach (ICD-10-PCS; 2019-04-19)
DX: O26.62 Liver and biliary tract disorders in childbirth (principal); K83.1 Obstruction of bile duct; Z37.0 Single live birth; O98.82 Other maternal infectious and parasitic diseases complicating childbirth; O99.344 Other mental disorders complicating childbirth; O69.81X0 Labor and delivery complicated by cord around neck, without compression, not applicable or unspecified; O71.82 Other specified trauma to perineum and vulva; F41.9 Anxiety disorder, unspecified; B95.1 Streptococcus, group B, as the cause of diseases classified elsewhere; Z3A.37 37 weeks gestation of pregnancy; Z79.899 Other long term (current) drug therapy; Z91.018 Allergy to other foods; Z91.010 Allergy to peanuts; Z91.013 Allergy to seafood
CPT/HCPCS: 85025; 86850; 86900; 86901; 88307

== ENCOUNTER → 2019-05-24 | Outpatient (CLI) | payer BC, OTHER ==
[2019-05-24 11:36] LABS: Basophils % (A) 0 %; Eosinophils # (A) 0.1 k/uL (0-0.7); Eosinophils % (A) 1 %; HCT 38.4 % (34.0-46.0); HGB 12.3 gm/dL (11.4-16.0); Lymphocytes # (A) 1.5 k/uL (1.0-4.8); Lymphocytes % (A) 19 %; MCH 29.5 pg (25.0-35.0); MCV 92.2 fL (80.0-100.0); Mean Platelet Volume 6.7; Monocytes # (A) 0.4 k/uL (0-1.0); Monocytes % (A) 4 %; Neutrophils # (A) 6.1 k/uL (1.3-7.7); Neutrophils % (A) 74 %; Platelet Count 296 k/uL (150-450); RBC 4.16 m/uL (3.80-5.40); RDW 13.8 % (11.5-15.5); WBC 8.2 k/uL (3.8-10.6)
== END | disposition home or self-care (01) ==
LOC: LABPAT 10:37
PROVIDERS: ATTEND Obstetrics & Gynecology
DX: Z31.84 Encounter for fertility preservation procedure (principal)
CPT/HCPCS: 36415; 85025

== ENCOUNTER 2019-06-08 11:29 | Emergency (ER) | payer OTHER ==
[2019-06-08 11:34] VITALS: RESP 18
[2019-06-08] MEDS ORDERED: ACETAMINOPHEN TAB 500 MG TAB PO STA (11:57)
--- NOTE | 2019-06-08 12:03 | ED ---
General Adult HPI - General Chief complaint: Extremity Injury, Lower Stated complaint: Ankle injury Time Seen by Provider: 06/08/19 11:36 Source: patient Mode of arrival: wheelchair Limitations: no limitations - History of Present Illness Initial comments: Patient is a 33-year-old male presenting to emergency Department with chief complaint of ankle pain. Patient reports she rolled her ankle proximally 9 days ago as she was walking to her car. Patient reports she went to the urgent care where she was diagnosed with an ankle sprain. Patient reports 3 days after she went back to work and felt her ankle "pop" and has developed sharp pain. Patient reports the pain is exacerbated with weightbearing and alleviated at rest. Patient reports she developed ecchymosis a few days after the incident which has since resolved. Patient reports the edema is still present. Patient reports taking [id number] analgesics minimal improvement. - Related Data Home Medications Medication Instructions Recorded Confirmed 114/Iron A-G/Folate 1 1 tab PO HS 04/19/16 06/08/19 [Prenate Elite Tablet] Sertraline HCl [Zoloft] 25 mg PO HS 07/12/18 06/08/19 Omeprazole 40 mg PO HS 12/09/18 06/08/19 Docusate [Colace] 100 mg PO HS 06/07/19 06/08/19 Norethindrone [Ortho Micronor] 0.35 mg PO HS 06/07/19 06/08/19 Acetaminophen Tab [Tylenol Tab] 1,000 mg PO Q6HR PRN 06/08/19 06/08/19 Allergies Allergy/AdvReac Type Severity Reaction Status Date / Time peanut Allergy Anaphylaxis Verified 06/08/19 11:43 tree nut Allergy Anaphylaxis Verified 06/08/19 11:43 shellfish derived [Shellfish] AdvReac Nausea & Verified 06/08/19 11:43 Vomiting & Diarrhea Review of Systems ROS Statement: Those systems with pertinent positive or pertinent negative responses have been documented in the HPI. ROS Other: All systems not noted in ROS Statement are negative. Past Medical History Past Medical History: Hypertension, Musculoskeletal Disorder Additional Past Medical History / Comment(s): hypertension during pregnancies, not normally, sprained left ankle last week-has hollie wrap History of Any Multi-Drug Resistant Organisms: ESBL Date of last positivie culture/infection: 07/12/18 MDRO Source:: ESBL URINE Past Surgical History: No Surgical Hx Reported Additional Past Surgical History / Comment(s): wisdom teeth Past Anesthesia/Blood Transfusion Reactions: No Reported Reaction Additional Past Anesthesia/Blood Transfusion Reaction / Comment(s): has never had general anesthesia Past Psychological History: Anxiety Smoking Status: Never smoker Past Alcohol Use History: None Reported Past Drug Use History: None Reported - Past Family History Mother Additional Family Medical History / Comment(s): Hypoglycemia General Exam Limitations: no limitations General appearance: alert, in no apparent distress, obese Head exam: Present: atraumatic, normocephalic, normal inspection Eye exam: Present: normal appearance, PERRL, EOMI Pupils: Present: normal accommodation ENT exam: Present: normal exam, mucous membranes moist, normal external ear exam Neck exam: Present: normal inspection, full ROM. Absent: tenderness Respiratory exam: Present: normal lung sounds bilaterally Cardiovascular Exam: Present: regular rate, normal rhythm, normal heart sounds Extremities exam: Present: tenderness (Tenderness over the anterior aspect of the left ankle. No lateral medial malleoli tenderness. No midfoot tenderness or fifth metatarsal tenderness.), normal capillary refill, other (+2 dorsalis pedis and posterior tibialis bilaterally.). Absent: normal inspection (Mild edema at the left ankle but no ecchymosis), full ROM (Limited range of motion with dorsiflexion and inversion) Back exam: Present: normal inspection, full ROM Neurological exam: Present: alert, oriented X3 Psychiatric exam: Present: normal affect, normal mood Skin exam: Present: warm, intact, normal color Course Vital Signs 06/08/19 11:31 Temperature 98.3 F Pulse Rate 86 Respiratory 18 Rate Blood Pressure 139/85 O2 Sat by Pulse 98 Oximetry Medical Decision Making - Medical Decision Making Patient is a 33-year-old male presenting to emergency Department with a chief complaint of left ankle pain. Patient injured ankle proximally night days ago and soaks parents and pain with ambulation. Anterior drawer test of the ankle is negative. X-ray is unremarkable. I suspect the patient to have suffered an ankle sprain. Advised the patient to avoid weightbearing on the left ankle. Ankle stirrup applied. Patient vised alternate between Tylenol and Toprol for pain control. Patient advised to ice the region multiple times a day for 10-15 minutes. Patient was to follow with orthopedic. Strict return parameters were thoroughly discussed the patient was understanding and agreeable. Case discussed physician. Disposition Clinical Impression: Ankle sprain Disposition: HOME SELF-CARE Condition: Stable Instructions (If sedation given, give patient instructions): Ankle Sprain (ED) Additional Instructions: Please follow up with orthopedics. Alternate between Tylenol and ibuprofen for pain control. Apply ice compresses to minimize symptoms. Please return to emergency department if symptoms worsen. Is patient prescribed a controlled substance at d/c from ED?: No Referrals: Jeremiah Day MD [Primary Care Provider] - 1-2 days Stalin Spivey DO [Medical Doctor] - 1-2 days Time of Disposition: 13:06
--- NOTE | 2019-06-08 12:24 | XR ---
Left ankle HISTORY: Trauma and pain, sprain one week prior 3 views of the left ankle Soft tissue swelling is present. Bone mineralization, joint spaces and alignment are maintained. IMPRESSION: No fracture or dislocation.
[2019-06-08 13:39] VITALS: BP 144/93; PULSE 75; TEMP 98.2
== END 2019-06-08 13:39 | disposition home or self-care (01) ==
LOC: EC 11:29
DX: S93.402A Sprain of unspecified ligament of left ankle, initial encounter (principal); I10 Essential (primary) hypertension; F41.9 Anxiety disorder, unspecified; Z79.3 Long term (current) use of hormonal contraceptives; Z79.899 Other long term (current) drug therapy; Z91.010 Allergy to peanuts; Z91.018 Allergy to other foods; Z91.013 Allergy to seafood; X50.1XXA Overexertion from prolonged static or awkward postures, initial encounter; Y93.01 Activity, walking, marching and hiking
CPT/HCPCS: 73610; 99283; 29515; L4350

== ENCOUNTER 2019-06-13 08:18 | Day surgery (SDC) | payer BC, OTHER ==
[2019-06-07 15:38] VITALS: BMI 36.1
[~2019-06-13 08:18] MED LIST: DEXAMETHASONE SOD PHOSPHATE 10 MG/ML 1 ML VIAL IV ONE; LACTATED RINGERS 1,000 ML IV SCH; MIDAZOLAM 2 MG/2 ML VIAL IV PRN; ONDANSETRON 4 MG/2 ML VIAL IVP ONE; Pre Op ABX Message 1 EACH MISC MISCELLANE ONE
[2019-06-13] MEDS ORDERED: LIDOCAINE 1% 20 ML VIAL (10MG/ML) FOR IV START INTRADERMA ONE (09:01)
[2019-06-13 09:06] LABS: Glucose,Whole Blood 79 mg/dL (75-99)
[2019-06-13] MEDS ORDERED: SCOPOLAMINE 1.5MG/72HR PATCH TRANSDERM ONE (09:07)
[2019-06-13] MEDS ORDERED: ONDANSETRON 4 MG/2 ML VIAL IVP PRN (09:24)
[2019-06-13] MEDS ORDERED: SUCCINYLCHOLINE CHLORIDE 100 MG/5 ML SYR IV ONE (09:24)
[2019-06-13] MEDS ORDERED: IBUPROFEN 600 MG TAB PO PRN (09:24)
[2019-06-13] MEDS ORDERED: ACETAMINOPHEN IV (For NPO) 1,000 MG/100 ML VIAL ONE (09:24)
[2019-06-13] MEDS ORDERED: MIDAZOLAM 2 MG/2 ML VIAL ONE (09:24)
[2019-06-13] MEDS ORDERED: KETOROLAC 30 MG/ML 1 ML VIAL IVP PRN (09:24)
[2019-06-13] MEDS ORDERED: Acetaminophen-Codeine 300-30mg TAB PO PRN ×2 (09:24)
[2019-06-13] MEDS ORDERED: fentaNYL (PF) 50 MCG/ML 2 ML AMP ONE (09:24)
[2019-06-13] MEDS ORDERED: METOCLOPRAMIDE 5 MG/ML 2 ML VIAL IVP PRN (09:24)
[2019-06-13] MEDS ORDERED: SIMETHICONE 80 MG CHEWABLE PO PRN (09:24)
[2019-06-13] MEDS ORDERED: PROPOFOL 10 MG/ML 20 ML VIAL IV ONE (09:24)
[2019-06-13] MEDS ORDERED: KETOROLAC 30 MG/ML 1 ML VIAL ONE (09:24)
[2019-06-13] MEDS ORDERED: LIDOCAINE 1% INJ 10MG/ML (20 ML MDV) ONE (09:24)
[2019-06-13] MEDS ORDERED: BUPIVACAINE (PF) 0.5% 30 ML VIAL SQ ONE ×2 (09:29→09:57)
[2019-06-13] MEDS ORDERED: LACTATED RINGERS 1,000 ML IV SCH (09:30)
--- NOTE | 2019-06-13 10:03 | P.OP ---
Date of Procedure: 06/13/19 Preoperative Diagnosis: #1. Status post normal spontaneous vaginal delivery, multiparity #2. Undesired fertility Postoperative Diagnosis: Same Procedure(s) Performed: #1. Laparoscopic bilateral tubal occlusion with Filshie clips Anesthesia: ALINA Surgeon: Esteban Constantino Estimated Blood Loss (ml): 2 IV fluids (ml): 500 Urine output (ml): 20 Pathology: none sent Condition: stable Disposition: PACU Operative Findings: Preoperative pelvic examination demonstrated a 4 week slightly anteverted mobile normal shaped uterus with normal adnexa bilaterally. Intraoperatively, these findings were confirmed within normal size and shape uterus with normal ovaries and tubes bilaterally. There was no evidence of any pathology within the pelvis to include endometriosis or other adhesions. The appendix was seen and normal as were the small and large bowel. The liver and gallbladder also appeared normal as did the diaphragm. Description of Procedure: The patient was prepped and draped in usual fashion after general endotracheal anesthesia was administered by the anesthesiologist. A speculum was placed allowing the anterior lip of the cervix grasped with a single-tooth tenaculum and an acorn cannula placed for manipulation. The speculum was removed and the bladder drained of approximately 20 mL of clear cristina urine. Attention was turned to the abdomen where a half a centimeter incision was made in a vertical fold of the umbilicus allowing insertion of a 5 mm optical trocar under direct visualization without difficulty. The abdomen was infused with carbon dioxide to create a pneumoperitoneum. Trendelenburg positioning was utilized and a site was selected approximately 4-5 cm above the pubic symphysis in the midline where an 8 mm incision was made in the transverse plane allowing insertion of an 8 mm trocar under direct visualization without difficulty. The blunt probe was utilized to sweep the bowel from the pelvis and the findings are normal as noted above. The probe was replaced with a Filshie clip applicator which was utilized to place a Filshie clip across the isthmic portion of each tube approximately 2- 3 cm from the cornu on each side where it was firmly affixed. All i nstrumentation was then removed. The abdomen was explored and the findings are normal as noted above. The pneumoperitoneum was evacuated through the 2 trocar sites and the trochars removed. The skin was closed with interrupted subcuticular stitches of 4-0 Vicryl followed by half-inch Steri-Strips placed with Mastisol. Each incision was infused with approximately 5 mL of half percent Marcaine without epinephrine. All sponge, instrument, needle counts were correct. Estimated blood loss was approximately 2 mL. There are no complications. The patient tolerated the procedure well and proceeded to recovery room in stable condition.
[2019-06-13 10:23] VITALS: RESP 16; TEMP 97
[2019-06-13] MEDS: HYDROmorphone 0.5 MG/0.5 ML SYRINGE IVP PRN ×2 (10:32→10:39)
[2019-06-13] MEDS ORDERED: LACTATED RINGERS 1,000 ML IV ONE (12:17)
[2019-06-13] MEDS ORDERED: PROMETHAZINE INJ 25 MG/ML 1 ML VIAL IVPB ONE (12:37)
[2019-06-13 13:38] VITALS: BP 122/67; PULSE 65
== END 2019-06-13 14:11 | disposition home or self-care (01) ==
LOC: OR 08:18
PROVIDERS: ATTEND Obstetrics & Gynecology
DX: Z30.2 Encounter for sterilization (principal); F41.9 Anxiety disorder, unspecified; Z14.1 Cystic fibrosis carrier; E16.2 Hypoglycemia, unspecified; Z82.49 Family history of ischemic heart disease and other diseases of the circulatory system; Z83.3 Family history of diabetes mellitus; Z80.7 Family history of other malignant neoplasms of lymphoid, hematopoietic and related tissues; Z79.899 Other long term (current) drug therapy; Z91.018 Allergy to other foods; Z91.010 Allergy to peanuts; Z91.013 Allergy to seafood
CPT/HCPCS: 58671; J2250; J1100; J2550; J2405; J2001; J3010; J1885; J0131; J0330; J2704; J1170

== ENCOUNTER 2019-11-01 10:50 | Emergency (ER) | payer BC, OTHER ==
[2019-11-01] MEDS ORDERED: ONDANSETRON 4 MG/2 ML VIAL IVP STA (11:06)
[2019-11-01] MEDS ORDERED: SODIUM CHLORIDE 0.9% 1,000 ML IV STA (11:06)
[2019-11-01] MEDS ORDERED: MORPHINE SULFATE 4 MG/ML SYRINGE IV STA (11:06)
[2019-11-01] MEDS ORDERED: PANTOPRAZOLE 40 MG/10 ML VIAL IVP STA (11:06)
--- NOTE | 2019-11-01 11:09 | ED ---
Abdominal Pain HPI - General Chief Complaint: Abdominal Pain Stated Complaint: Abd/stomach pain Time Seen by Provider: 11/01/19 10:56 Source: patient, RN notes reviewed, old records reviewed Mode of arrival: ambulatory Limitations: no limitations - History of Present Illness Initial Comments: Patient is a 34-year-old female, who presents emergency department today for evaluation for concerns for diffuse abdominal pain. Symptoms worsening over the past 4 days. She states that she has been thinking initially was related to constipation but after taking states last stool softeners however she still is able to have a bowel movement. Patient reports that she's had no specific fevers or chills. She just feels that her body is not quite right at this time. She states that she has had some quickly twisting and cramping pain in her abdomen. She denies any chest pain or shortness of breath. - Related Data Home Medications Medication Instructions Recorded Confirmed 114/Iron A-G/Folate 1 1 tab PO HS 04/19/16 06/08/19 [Prenate Elite Tablet] Sertraline HCl [Zoloft] 25 mg PO HS 07/12/18 06/08/19 Omeprazole 40 mg PO HS 12/09/18 06/08/19 Docusate [Colace] 100 mg PO HS 06/07/19 06/08/19 Norethindrone [Ortho Micronor] 0.35 mg PO HS 06/07/19 06/08/19 Acetaminophen Tab [Tylenol Tab] 1,000 mg PO Q6HR PRN 06/08/19 06/13/19 Previous Rx's Medication Instructions Recorded Omeprazole 40 mg PO DAILY #20 capsule. 11/01/19 Sucralfate [Carafate] 1 gm PO ACHS #30 tablet 11/01/19 Allergies Allergy/AdvReac Type Severity Reaction Status Date / Time peanut Allergy Anaphylaxis Verified 06/08/19 11:43 tree nut Allergy Anaphylaxis Verified 06/08/19 11:43 shellfish derived [Shellfish] AdvReac Nausea & Verified 06/08/19 11:43 Vomiting & Diarrhea Review of Systems ROS Statement: Those systems with pertinent positive or pertinent negative responses have been documented in the HPI. ROS Other: All systems not noted in ROS Statement are negative. Past Medical History Past Medical History: Hypertension, Musculoskeletal Disorder Additional Past Medical History / Comment(s): hypertension during pregnancies, not normally, sprained left ankle last week-has hollie wrap History of Any Multi-Drug Resistant Organisms: ESBL Date of last positivie culture/infection: 07/12/18 MDRO Source:: ESBL URINE Past Surgical History: No Surgical Hx Reported Additional Past Surgical History / Comment(s): wisdom teeth Past Anesthesia/Blood Transfusion Reactions: No Reported Reaction Additional Past Anesthesia/Blood Transfusion Reaction / Comment(s): has never had general anesthesia Past Psychological History: Anxiety Smoking Status: Never smoker Past Alcohol Use History: None Reported Past Drug Use History: None Reported - Past Family History Mother Additional Family Medical History / Comment(s): Hypoglycemia General Exam Limitations: no limitations General appearance: alert, in no apparent distress Head exam: Present: atraumatic, normocephalic, normal inspection Eye exam: Present: normal appearance, PERRL, EOMI. Absent: scleral icterus, conjunctival injection, periorbital swelling ENT exam: Present: normal exam, mucous membranes moist Neck exam: Present: normal inspection. Absent: tenderness, meningismus, lymphadenopathy Respiratory exam: Present: normal lung sounds bilaterally. Absent: respiratory distress, wheezes, rales, rhonchi, stridor Cardiovascular Exam: Present: regular rate, normal rhythm, normal heart sounds. Absent: systolic murmur, diastolic murmur, rubs, gallop, clicks GI/Abdominal exam: Present: soft, normal bowel sounds. Absent: distended, tenderness, guarding, rebound, rigid Extremities exam: Present: normal inspection, full ROM, normal capillary refill. Absent: tenderness, pedal edema, joint swelling, calf tenderness Back exam: Present: normal inspection Neurological exam: Present: alert, oriented X3, CN II-XII intact Psychiatric exam: Present: normal affect, normal mood Course Vital Signs 11/01/19 11/01/19 11/01/19 10:52 12:09 14:17 Temperature 98.1 F Pulse Rate 103 H 55 L 85 Respiratory 19 16 16 Rate Blood Pressure 136/79 124/75 134/84 O2 Sat by Pulse 100 100 99 Oximetry 11/01/19 14:38 Temperature 98.2 F Pulse Rate 86 Respiratory 18 Rate Blood Pressure 142/69 O2 Sat by Pulse 99 Oximetry Medical Decision Making - Medical Decision Making 34 year old femael with CC of abdominal pain. Labs were reviewed and unrema rkble. Patient continued to have pain, CT ordered. CT is negative for acuteprocess. DiscussedPCP follow up. Returnparameters discussed. - Lab Data Result diagrams: 11/01/19 11:32 11/01/19 11:32 Lab Results 11/01/19 11/01/19 11/01/19 Range/Units 11:32 11:32 12:14 WBC 8.1 (3.8-10.6) k/uL RBC 4.14 (3.80-5.40) m/uL Hgb 12.2 (11.4-16.0) gm/dL Hct 38.8 (34.0-46.0) % MCV 93.8 (80.0-100.0) fL MCH 29.5 (25.0-35.0) pg MCHC 31.5 (31.0-37.0) g/dL RDW 13.2 (11.5-15.5) % Plt Count 271 (150-450) k/uL Neutrophils % 74 % Lymphocytes % 18 % Monocytes % 4 % Eosinophils % 2 % Basophils % 1 % Neutrophils # 6.0 (1.3-7.7) k/uL Lymphocytes # 1.5 (1.0-4.8) k/uL Monocytes # 0.3 (0-1.0) k/uL Eosinophils # 0.1 (0-0.7) k/uL Basophils # 0.1 (0-0.2) k/uL PT 10.6 (9.0-12.0) sec INR 1.0 (<1.2) APTT 25.6 (22.0-30.0) sec Sodium 140 (137-145) mmol/L Potassium 4.4 (3.5-5.1) mmol/L Chloride 109 H (98-107) mmol/L Carbon Dioxide 23 (22-30) mmol/L Anion Gap 8 mmol/L BUN 10 (7-17) mg/dL Creatinine 0.50 L (0.52-1.04) mg/dL Est GFR (CKD-EPI)AfAm >90 (>60 ml/min/1.73 sqM) Est GFR (CKD-EPI)NonAf >90 (>60 ml/min/1.73 sqM) Glucose 99 (74-99) mg/dL Calcium 9.0 (8.4-10.2) mg/dL Total Bilirubin 0.5 (0.2-1.3) mg/dL AST 37 H (14-36) U/L ALT 16 (4-34) U/L Alkaline Phosphatase 44 (38-126) U/L Total Protein 7.7 (6.3-8.2) g/dL Albumin 4.2 (3.5-5.0) g/dL Amylase 55 (30-110) U/L Lipase 50 (23-300) U/L Urine Color Urine Appearance (Clear) Urine pH (5.0-8.0) Ur Specific [place] (1.001-1.035) Urine Protein (Negative) Urine Glucose (UA) (Negative) Urine Ketones (Negative) Urine Blood (Negative) Urine Nitrite (Negative) Urine Bilirubin (Negative) Urine Urobilinogen (<2.0) mg/dL Ur Leukocyte Esterase (Negative) Urine HCG, Qual (Not Detectd) 11/01/19 11/01/19 Range/Units 12:26 12:26 WBC (3.8-10.6) k/uL RBC (3.80-5.40) m/uL Hgb (11.4-16.0) gm/dL Hct (34.0-46.0) % MCV (80.0-100.0) fL MCH (25.0-35.0) pg MCHC (31.0-37.0) g/dL RDW (11.5-15.5) % Plt Count (150-450) k/uL Neutrophils % % Lymphocytes % % Monocytes % % Eosinophils % % Basophils % % Neutrophils # (1.3-7.7) k/uL Lymphocytes # (1.0-4.8) k/uL Monocytes # (0-1.0) k/uL Eosinophils # (0-0.7) k/uL Basophils # (0-0.2) k/uL PT (9.0-12.0) sec INR (<1.2) APTT (22.0-30.0) sec Sodium (137-145) mmol/L Potassium (3.5-5.1) mmol/L Chloride (98-107) mmol/L Carbon Dioxide (22-30) mmol/L Anion Gap mmol/L BUN (7-17) mg/dL Creatinine (0.52-1.04) mg/dL Est GFR (CKD-EPI)AfAm (>60 ml/min/1.73 sqM) Est GFR (CKD-EPI)NonAf (>60 ml/min/1.73 sqM) Glucose (74-99) mg/dL Calcium (8.4-10.2) mg/dL Total Bilirubin (0.2-1.3) mg/dL AST (14-36) U/L ALT (4-34) U/L Alkaline Phosphatase (38-126) U/L Total Protein (6.3-8.2) g/dL Albumin (3.5-5.0) g/dL Amylase (30-110) U/L Lipase (23-300) U/L Urine Color Yellow Urine Appearance Clear (Clear) Urine pH 6.5 (5.0-8.0) Ur Specific [place] 1.022 (1.001-1.035) Urine Protein Trace H (Negative) Urine Glucose (UA) Negative (Negative) Urine Ketones Negative (Negative) Urine Blood Negative (Negative) Urine Nitrite Negative (Negative) Urine Bilirubin Negative (Negative) Urine Urobilinogen <2.0 (<2.0) mg/dL Ur Leukocyte Esterase Negative (Negative) Urine HCG, Qual Not Detected (Not Detectd) 11/01/19 11:49 EKG performed at 1134 shows normal sinus rhythm normal EKG. Ventricular rate of 70 beats were minute. Verbal is 140 ms. QRS duration is 86 ms. QT QTc is 392/423 ms. - Radiology Data Radiology results: report reviewed CT is negative for acute intraabdominal process. Disposition Clinical Impression: Abdominal pain Disposition: HOME SELF-CARE Condition: Good Instructions (If sedation given, give patient instructions): Abdominal Pain (ED) Additional Instructions: Please use medication as discussed. Please follow up with family doctor if symptoms have not improved over the next two days. Please return to the emergency room if your symptoms increase or worsen or for any other concerns. Advised on a is a clear liquid diet and advancing to the bananas, rice, applesauce and toast diet. Prescriptions: Sucralfate [Carafate] 1 gm PO ACHS #30 tablet Omeprazole 40 mg PO DAILY #20 capsule.dr Is patient prescribed a controlled substance at d/c from ED?: No Referrals: Jeremiah Day MD [Primary Care Provider] - 1-2 days Mary Lou Thomas MD [STAFF PHYSICIAN] - 1-2 days Time of Disposition: 14:28
[2019-11-01 12:11] LABS: Basophils # (A) 0.1 k/uL (0-0.2); Basophils % (A) 1 %; Eosinophils # (A) 0.1 k/uL (0-0.7); Eosinophils % (A) 2 %; HCT 38.8 % (34.0-46.0); HGB 12.2 gm/dL (11.4-16.0); Lymphocytes # (A) 1.5 k/uL (1.0-4.8); Lymphocytes % (A) 18 %; MCH 29.5 pg (25.0-35.0); MCHC 31.5 g/dL (31.0-37.0); MCV 93.8 fL (80.0-100.0); Monocytes # (A) 0.3 k/uL (0-1.0); Monocytes % (A) 4 %; Neutrophils % (A) 74 %; Platelet Count 271 k/uL (150-450); RBC 4.14 m/uL (3.80-5.40); RDW 13.2 % (11.5-15.5); WBC 8.1 k/uL (3.8-10.6)
[2019-11-01 12:19] LABS: ALT 16 U/L (4-34); AST 37 U/L (14-36); African American GFR (CKD) >90 (>60 ml/min/1.73 sqM); Albumin 4.2 g/dL (3.5-5.0); Alkaline Phosphatase 44 U/L (38-126); Amylase 55 U/L (30-110); Anion Gap 8 mmol/L; Blood Urea Nitrogen 10 mg/dL (7-17); Carbon Dioxide 23 mmol/L (22-30); Chloride 109 mmol/L (98-107); Glucose 99 mg/dL (74-99); Non-African American GFR(CKD) >90 (>60 ml/min/1.73 sqM); Sodium 140 mmol/L (137-145); Total Bilirubin 0.5 mg/dL (0.2-1.3); Total Protein 7.7 g/dL (6.3-8.2)
[2019-11-01 12:23] LABS: Potassium 4.4 mmol/L (3.5-5.1)
[2019-11-01 12:52] LABS: Appearance,Urine Clear (Clear); Bilirubin,Urine Negative (Negative); Blood,Urine Negative (Negative); Color,Urine Yellow; Glucose,Urine (UA) Negative (Negative); Ketones,Urine Negative (Negative); Leukocyte Esterase,Urine Negative (Negative); Nitrite,Urine Negative (Negative); PH, Urine 6.5 (5.0-8.0); Protein,Urine Trace (Negative); Specific Gravity,Urine 1.022 (1.001-1.035); Urobilinogen,Urine <2.0 mg/dL (<2.0)
[2019-11-01 12:54] LABS: Partial Thromboplastin Time 25.6 sec (22.0-30.0); Prothrombin Time 10.6 sec (9.0-12.0)
--- NOTE | 2019-11-01 14:06 | CT ---
EXAMINATION TYPE: CT abdomen pelvis w con DATE OF EXAM: 11/01/2019 HISTORY: Upper abdominal pain radiating into lower abdomen CT DLP: 1484mGycm Automated Exposure Control for Dose Reduction was Utilized. CONTRAST: CT scan of the abdomen and pelvis is performed without oral but with IV Contrast, patient injected wi th 100 mL of Isovue 300. COMPARISON: None FINDINGS: LUNG BASES: No significant abnormality is appreciated. LIVER/GB: Liver is mildly enlarged and heterogeneously hypodense in appearance suggesting diffuse fat ty infiltration. Subcentimeter low-density lesion right hepatic lobe axial image 13 is too small to f nicki characterize. PANCREAS: No significant abnormality is seen. SPLEEN: No significant abnormality is seen. ADRENALS: No significant abnormality is seen. KIDNEYS: No significant abnormality is seen. BOWEL: Evaluation bowel suboptimal secondary to lack of enteric contrast. There is no suspicious smal l or large bowel dilatation. There are slightly low-lying cecum into the right pelvis. Mild wall thic kening involving the left colon into the sigmoid colon is present. UTERUS/ADNEXA: There is a anteverted uterus. Tubal ligation clips along the uterine periphery are harrison ntified. Right ovary is 2.5 cm low dense lesion axial image 66 favoring simple thin-walled cyst or pr ominent follicle. Left ovary smaller in size axial image 69. LYMPH NODES: No greater than 1cm abdominal or pelvic lymph nodes are appreciated. OSSEOUS STRUCTURES: No significant abnormality is seen. OTHER: No significant additional abnormality is seen. IMPRESSION: No significant acute finding is seen to account for patient's clinical symptoms. Mild hep atomegaly and suspected diffuse fatty infiltration of liver.
[2019-11-01 14:41] VITALS: BP 142/69; PULSE 86; RESP 18; TEMP 98.2
== END 2019-11-01 14:41 | disposition home or self-care (01) ==
LOC: EC 10:50
DX: R10.84 Generalized abdominal pain (principal); F41.9 Anxiety disorder, unspecified; Z79.899 Other long term (current) drug therapy; Z91.010 Allergy to peanuts; Z91.018 Allergy to other foods; Z91.013 Allergy to seafood
CPT/HCPCS: 36415; 93005; 80053; 82150; 83690; 85025; 85610; 85730; 81003; 81025; 74177; 99285; 96374; 96375 ×2; 96361; J2270; J2405; C9113; Q9967

== ENCOUNTER 2019-12-27 15:01 | Emergency (ER) | payer BC, OTHER ==
--- NOTE | 2019-12-27 16:11 | ED ---
Abdominal Pain HPI - General Chief Complaint: Abdominal Pain Stated Complaint: abd pain Time Seen by Provider: 12/27/19 15:58 Source: patient Mode of arrival: ambulatory Limitations: no limitations - History of Present Illness Initial Comments: Patient is a 34-year-old female presenting to emergency Department with complaints of lower abdominal pain, vaginal pain that has been increasing over the past 2 days. She states she is also been having mild spotting. Patient completed her menstrual cycle over a week ago. She states she has had a tubal ligation. Patient describes the discomfort as suprapubic and extending into her vaginal area. She states that when she stands the pain seems to be worse and it goes from feeling cramping and pressure to very sharp shooting pains. Patient denies any urinary complaints such as dysuria or frequency. Patient denies concerns for STDs. She has had increase in clear discharge the last few days but no yellow discharge or odor. She denies any other abdominal surgeries other than a tubal ligation. She missed to mild nausea, no vomiting. She's had no fevers. She denies chest pain, shortness of breath, cough. She denies history of kidney stones. She has been eating her regular diet. She has no other complaints at this time. Upon arrival to the ER, her vital signs are stable. - Related Data Home Medications Medication Instructions Recorded Confirmed 114/Iron A-G/Folate 1 1 tab PO HS 04/19/16 06/08/19 [Prenate Elite Tablet] Sertraline HCl [Zoloft] 25 mg PO HS 07/12/18 06/08/19 Omeprazole 40 mg PO HS 12/09/18 06/08/19 Docusate [Colace] 100 mg PO HS 06/07/19 06/08/19 Norethindrone [Ortho Micronor] 0.35 mg PO HS 06/07/19 06/08/19 Acetaminophen Tab [Tylenol Tab] 1,000 mg PO Q6HR PRN 06/08/19 06/13/19 Previous Rx's Medication Instructions Recorded Omeprazole 40 mg PO DAILY #20 capsule. 11/01/19 Sucralfate [Carafate] 1 gm PO ACHS #30 tablet 11/01/19 Allergies Allergy/AdvReac Type Severity Reaction Status Date / Time peanut Allergy Anaphylaxis Verified 06/08/19 11:43 tree nut Allergy Anaphylaxis Verified 06/08/19 11:43 shellfish derived [Shellfish] AdvReac Nausea & Verified 06/08/19 11:43 Vomiting & Diarrhea Review of Systems ROS Statement: Those systems with pertinent positive or pertinent negative responses have been documented in the HPI. ROS Other: All systems not noted in ROS Statement are negative. Past Medical History Past Medical History: Hypertension, Musculoskeletal Disorder Additional Past Medical History / Comment(s): hypertension during pregnancies, not normally, sprained left ankle last week-has hollie wrap History of Any Multi-Drug Resistant Organisms: ESBL Date of last positivie culture/infection: 07/12/18 MDRO Source:: ESBL URINE Past Surgical History: No Surgical Hx Reported Additional Past Surgical History / Comment(s): wisdom teeth Past Anesthesia/Blood Transfusion Reactions: No Reported Reaction Additional Past Anesthesia/Blood Transfusion Reaction / Comment(s): has never had general anesthesia Past Psychological History: Anxiety Smoking Status: Never smoker Past Alcohol Use History: None Reported Past Drug Use History: None Reported - Past Family History Mother Additional Family Medical History / Comment(s): Hypoglycemia General Exam - General Exam Comments Initial Comments: GENERAL: Well-appearing, well-nourished and in no acute distress. HEAD: Atraumatic, normocephalic. EYES: Pupils equal round and reactive to light, extraocular movements intact, sclera anicteric, conjunctiva are normal. ENT: TMs normal, nares patent, oropharynx clear without exudates. Moist mucous membranes. NECK: Normal range of motion, supple without lymphadenopathy or JVD. LUNGS: Breath sounds clear to auscultation bilaterally and equal. No wheezes rales or rhonchi. HEART: Regular rate and rhythm without murmurs, rubs or gallops. ABDOMEN: Mild suprapubic tenderness. Soft, normoactive bowel sounds. No guarding, no rebound. No masses appreciated. EXTREMITIES: Normal range of motion, no pitting or edema. No clubbing or cyanosis. NEUROLOGICAL: Normal speech, normal gait. PSYCH: Normal mood, normal affect. SKIN: Warm, Dry, normal turgor, no rashes or lesions noted. Limitations: no limitations External exam: Present: normal external exam. Absent: erythema, swelling Speculum exam: Present: cervical discharge. Absent: vaginal discharge, vaginal bleeding, foreign body By manual exam: Present: normal by manual exam Course Vital Signs 12/27/19 12/27/19 15:23 19:01 Temperature 98.1 F 98.0 F Pulse Rate 71 79 Respiratory 16 17 Rate Blood Pressure 152/87 140/71 O2 Sat by Pulse 99 98 Oximetry Medical Decision Making - Medical Decision Making Patient is a 34-year-old female presenting with pelvic pain. Vital signs are stable. Urine shows no acute abnormalities, no signs of infection. HCG is not detected. Trichomonas is negative. Ultrasound of the pelvis reveals findings that could represent a fibroid and or a possible hemorrhagic cyst on the right ovary. There is no evidence for ovarian torsion. I do not feel this is infectious process. Gonorrhea, chlamydia, cervical culture are pending at this time. Patient is stable for discharge at this time. She will follow-up with her RN EXAMINER, Dr. Matias. She is in agreement with this plan of care. Return parameters were discussed with the patient she verbalized understanding. - Lab Data Lab Results 12/27/19 12/27/19 12/27/19 Range/Units 16:15 16:15 17:50 Urine Color Colorless Urine Appearance Clear (Clear) Urine pH 6.5 (5.0-8.0) Ur Specific [place] 1.001 (1.001-1.035) Urine Protein Negative (Negative) Urine Glucose (UA) Negative (Negative) Urine Ketones Negative (Negative) Urine Blood Small H (Negative) Urine Nitrite Negative (Negative) Urine Bilirubin Negative (Negative) Urine Urobilinogen <2.0 (<2.0) mg/dL Ur Leukocyte Esterase Negative (Negative) Urine WBC 1 (0-5) /hpf Ur Squamous Epith Cells 2 (0-4) /hpf Urine HCG, Qual Not Detected (Not Detectd) Chlamydia Source Chlamydia DNA (PCR) (Neg,Equiv) N. gonorrhoeae Source N.gonorrhoeae DNA Probe (Neg,Equiv) Trichomonas Ag (Rapid) Negative (Negative) 12/27/19 Range/Units 17:50 Urine Color Urine Appearance (Clear) Urine pH (5.0-8.0) Ur Specific [place] (1.001-1.035) Urine Protein (Negative) Urine Glucose (UA) (Negative) Urine Ketones (Negative) Urine Blood (Negative) Urine Nitrite (Negative) Urine Bilirubin (Negative) Urine Urobilinogen (<2.0) mg/dL Ur Leukocyte Esterase (Negative) Urine WBC (0-5) /hpf Ur Squamous Epith Cells (0-4) /hpf Urine HCG, Qual (Not Detectd) Chlamydia Source Cervix Chlamydia DNA (PCR) Negative (Neg,Equiv) N. gonorrhoeae Source Cervix N.gonorrhoeae DNA Probe Negative (Neg,Equiv) Trichomonas Ag (Rapid) (Negative) Disposition Clinical Impression: Abdominal pain, Ovarian cyst Disposition: HOME SELF-CARE Condition: Stable Instructions (If sedation given, give patient instructions): Ovarian Cyst (ED) Additional Instructions: Please return to the Emergency Department if symptoms worsen or any other concerns. Continue to alternate between Tylenol and Motrin every 4 hours. Follow-up with RN EXAMINER as discussed. Is patient prescribed a controlled substance at d/c from ED?: No Referrals: Jeremiah Day MD [Primary Care Provider] - 1-2 days Esteban Constantino MD [STAFF PHYSICIAN] - 1-2 days
[2019-12-27 16:25] LABS: Appearance,Urine Clear (Clear); Bilirubin,Urine Negative (Negative); Blood,Urine Small (Negative); Color,Urine Colorless; Glucose,Urine (UA) Negative (Negative); Ketones,Urine Negative (Negative); Leukocyte Esterase,Urine Negative (Negative); Nitrite,Urine Negative (Negative); PH, Urine 6.5 (5.0-8.0); Protein,Urine Negative (Negative); Specific Gravity,Urine 1.001 (1.001-1.035); Squamous Epithelial Cell,Urine 2 /hpf (0-4); Urobilinogen,Urine <2.0 mg/dL (<2.0); WBC,Urine 1 /hpf (0-5)
--- NOTE | 2019-12-27 18:21 | US ---
EXAMINATION TYPE: US transvaginal DATE OF EXAM: 12/27/2019 COMPARISON: CT, US CLINICAL HISTORY: pain, spotting. Pain, spotting x 3 days. Hx ovarian cysts. Tubal ligation 2019. . TECHNIQUE: Transvaginal (TV). Date of LMP: 12/15/2019 EXAM MEASUREMENTS: Uterus: 8.5 x 5.4 x 3.9 cm Endometrial Stripe: 0.93 cm Right Ovary: 3.2 x 2.4 x 1.9 cm Left Ovary: 2.7 x 1.6 x 1.5 cm Grayscale and color Doppler imaging performed of the ovaries 1. Uterus: Anteverted. Hypoechoic area seen anteriorly: 1.0 x 0.8 x 0.8 cm. 2. Endometrium: Measures 9.3 mm. Correlate for stage of cycle. 3. Right Ovary: Hypoechoic area seen with vascularity: 2.0 x 1.4 x 1.2 cm. Anechoic area seen measur in.9 x 0.9 x 0.7 cm. 4. Left Ovary: Anechoic area seen measurin.1 x 0.9 x 0.7 cm. Hypoechoic area seen measurin.3 x 1.1 x 0.7 cm. Color flow noted to the ovaries, vascular waveforms noted to the right ovary and left ovary. 5. Bilateral Adnexa: Appear to be wnl. 6. Posterior cul-de-sac: Anechoic fluid appearing area is seen. IMPRESSION: Findings could represent a fibroid. Possible hemorrhagic cyst right ovary.
[2019-12-27 19:02] VITALS: BP 140/71; PULSE 79; RESP 17; TEMP 98
[2019-12-28 14:57] LABS: C. trachomatis,PCR Negative (Neg,Equiv); Chlamydia trachomatis Source Cervix; N. gonorrhoeae,PCR Negative (Neg,Equiv); Neisseria Source Cervix
== END 2019-12-27 19:02 | disposition home or self-care (01) ==
LOC: EC 15:01
DX: N83.201 Unspecified ovarian cyst, right side (principal); N93.8 Other specified abnormal uterine and vaginal bleeding; R11.0 Nausea; F41.9 Anxiety disorder, unspecified; Z91.010 Allergy to peanuts; Z91.013 Allergy to seafood; Z91.018 Allergy to other foods; Z79.3 Long term (current) use of hormonal contraceptives; Z79.899 Other long term (current) drug therapy; Z98.51 Tubal ligation status
CPT/HCPCS: 76830; 81001; 81025; 87070; 87491; 87591; 87808; 93975; 99284

== ENCOUNTER 2021-05-04 14:00 | Emergency (ER) | payer BC, OTHER ==
[2021-05-04 14:09] VITALS: TEMP 98.5
--- NOTE | 2021-05-04 14:40 | ED ---
General Adult HPI - General Chief complaint: Neuro Symptoms/Deficit Stated complaint: numbness L side of face and arm Time Seen by Provider: 05/04/21 14:10 Source: patient, RN notes reviewed, old records reviewed Mode of arrival: ambulatory Limitations: physical limitation - History of Present Illness Initial comments: 35-year-old female presenting with a variety of complaints, chief complaint is intermittent left facial numbness and intermittent right arm numbness over the past 2 weeks. She describes this as a pressure sensation with numbness. There is no weakness. There is been no speech abnormalities. No symptoms in the legs. No chest pain. She has had some abdominal pain as well which is suprapubic, lower abdominal pain with associated nausea. No vomiting. No dysuria. She denies previous history of neurological issues. There's been no reported fever. - Related Data Home Medications Medication Instructions Recorded Confirmed Cholecalciferol [Vitamin D3 (25 50 mcg PO HS 05/04/21 05/04/21 Mcg = 1000 Iu)] Stephanie Fe 24 1 tab PO DIRECTED 05/04/21 05/04/21 Loratadine [Claritin] 10 mg PO HS 05/04/21 05/04/21 -Plus Dha 1 tab PO HS 05/04/21 05/04/21 Turmeric Root Extract [Turmeric] 500 mg PO DAILY 05/04/21 05/04/21 Allergies Allergy/AdvReac Type Severity Reaction Status Date / Time peanut Allergy Anaphylaxis Verified 05/04/21 14:57 tree nut Allergy Anaphylaxis Verified 05/04/21 14:57 shellfish derived [Shellfish] AdvReac Nausea & Verified 05/04/21 14:57 Vomiting & Diarrhea Review of Systems ROS Statement: Those systems with pertinent positive or pertinent negative responses have been documented in the HPI. ROS Other: All systems not noted in ROS Statement are negative. Past Medical History Past Medical History: Hypertension, Musculoskeletal Disorder Additional Past Medical History / Comment(s): hypertension during pregnancies, not normally, sprained left ankle last week-has hollie wrap History of Any Multi-Drug Resistant Organisms: ESBL Date of last positivie culture/infection: 07/12/18 MDRO Source:: ESBL URINE Past Surgical History: No Surgical Hx Reported Additional Past Surgical History / Comment(s): wisdom teeth Past Anesthesia/Blood Transfusion Reactions: No Reported Reaction Additional Past Anesthesia/Blood Transfusion Reaction / Comment(s): has never had general anesthesia Past Psychological History: Anxiety Past Alcohol Use History: None Reported Past Drug Use History: None Reported - Past Family History Mother Additional Family Medical History / Comment(s): Hypoglycemia General Exam Limitations: physical limitation General appearance: alert, in no apparent distress Head exam: Present: atraumatic, normocephalic Eye exam: Present: normal appearance, PERRL ENT exam: Present: normal exam Neck exam: Present: normal inspection. Absent: tenderness, meningismus Respiratory exam: Present: normal lung sounds bilaterally. Absent: respiratory distress, wheezes Cardiovascular Exam: Present: regular rate, normal rhythm GI/Abdominal exam: Present: soft. Absent: distended, tenderness, guarding, rebound Extremities exam: Present: normal inspection, normal capillary refill. Absent: pedal edema, calf tenderness Neurological exam: Present: alert, oriented X3, CN II-XII intact, other (No limb ataxia, 5 out of 5 strength in all extremities. NIH is 0.). Absent: motor sensory deficit Psychiatric exam: Present: normal affect, normal mood Skin exam: Present: warm, dry, intact. Absent: cyanosis, diaphoretic Course Vital Signs 05/04/21 14:05 Temperature 98.5 F Pulse Rate 83 Respiratory 18 Rate Blood Pressure 152/97 O2 Sat by Pulse 98 Oximetry EKG Findings - EKG Comments: EKG Findings:: EKG: Normal sinus rhythm with sinus arrhythmia, rate of 66, CT interval 132, QRS duration 84, QTC 425 Medical Decision Making - Medical Decision Making 85-year-old female who had presented with chief complaint of numbness and paresthesia to the face and arm which is been ongoing for the past 2 weeks. Patient well-appearing with a nonfocal neurologic exam, NIH is 0. I did initiate workup on this patient, she has a EKG showing sinus rhythm. Head CT negative for intracranial hemorrhage or mass effect, no acute findings. She has a normal CBC, normal CMP, negative urinalysis. I did recommend this patient continue to follow-up regarding her symptoms. Given the two-week duration I think she is safe for outpatient follow-up at this time. Given neurology referral and will follow-up with her primary care physician. She's given strict return parameters. - Lab Data Result diagrams: 05/04/21 14:54 05/04/21 14:54 Lab Results 05/04/21 05/04/21 05/04/21 Range/Units 14:54 14:54 14:54 WBC 10.2 (3.8-10.6) k/uL RBC 4.38 (3.80-5.40) m/uL Hgb 13.2 (11.4-16.0) gm/dL Hct 41.5 (34.0-46.0) % MCV 94.8 (80.0-100.0) fL MCH 30.2 (25.0-35.0) pg MCHC 31.9 (31.0-37.0) g/dL RDW 12.9 (11.5-15.5) % Plt Count 255 (150-450) k/uL MPV 7.6 Neutrophils % 76 % Lymphocytes % 18 % Monocytes % 3 % Eosinophils % 1 % Basophils % 1 % Neutrophils # 7.8 H (1.3-7.7) k/uL Lymphocytes # 1.8 (1.0-4.8) k/uL Monocytes # 0.3 (0-1.0) k/uL Eosinophils # 0.1 (0-0.7) k/uL Basophils # 0.1 (0-0.2) k/uL PT 10.2 (9.0-12.0) sec INR 0.9 (<1.2) APTT 24.1 (22.0-30.0) sec Sodium (137-145) mmol/L Potassium (3.5-5.1) mmol/L Chloride (98-107) mmol/L Carbon Dioxide (22-30) mmol/L Anion Gap mmol/L BUN (7-17) mg/dL Creatinine (0.52-1.04) mg/dL Est GFR (CKD-EPI)AfAm (>60 ml/min/1.73 sqM) Est GFR (CKD-EPI)NonAf (>60 ml/min/1.73 sqM) Glucose (74-99) mg/dL Plasma Lactic Acid Kale (0.7-2.0) mmol/L Calcium (8.4-10.2) mg/dL Magnesium (1.6-2.3) mg/dL Total Bilirubin (0.2-1.3) mg/dL AST (14-36) U/L ALT (4-34) U/L Alkaline Phosphatase (38-126) U/L Troponin I (0.000-0.034) ng/mL Total Protein (6.3-8.2) g/dL Albumin (3.5-5.0) g/dL Urine Color Colorless Urine Appearance Clear (Clear) Urine pH 6.0 (5.0-8.0) Ur Specific [place] 1.003 (1.001-1.035) Urine Protein Negative (Negative) Urine Glucose (UA) Negative (Negative) Urine Ketones Negative (Negative) Urine Blood Negative (Negative) Urine Nitrite Negative (Negative) Urine Bilirubin Negative (Negative) Urine Urobilinogen <2.0 (<2.0) mg/dL Ur Leukocyte Esterase Negative (Negative) Urine HCG, Qual (Not Detectd) 05/04/21 05/04/21 05/04/21 Range/Units 14:54 14:54 14:54 WBC (3.8-10.6) k/uL RBC (3.80-5.40) m/uL Hgb (11.4-16.0) gm/dL Hct (34.0-46.0) % MCV (80.0-100.0) fL MCH (25.0-35.0) pg MCHC (31.0-37.0) g/dL RDW (11.5-15.5) % Plt Count (150-450) k/uL MPV Neutrophils % % Lymphocytes % % Monocytes % % Eosinophils % % Basophils % % Neutrophils # (1.3-7.7) k/uL Lymphocytes # (1.0-4.8) k/uL Monocytes # (0-1.0) k/uL Eosinophils # (0-0.7) k/uL Basophils # (0-0.2) k/uL PT (9.0-12.0) sec INR (<1.2) APTT (22.0-30.0) sec Sodium 140 (137-145) mmol/L Potassium 3.8 (3.5-5.1) mmol/L Chloride 105 (98-107) mmol/L Carbon Dioxide 24 (22-30) mmol/L Anion Gap 11 mmol/L BUN 14 (7-17) mg/dL Creatinine 0.61 (0.52-1.04) mg/dL Est GFR (CKD-EPI)AfAm >90 (>60 ml/min/1.73 sqM) Est GFR (CKD-EPI)NonAf >90 (>60 ml/min/1.73 sqM) Glucose 87 (74-99) mg/dL Plasma Lactic Acid Kale 1.2 (0.7-2.0) mmol/L Calcium 9.5 (8.4-10.2) mg/dL Magnesium 1.8 (1.6-2.3) mg/dL Total Bilirubin <0.1 L (0.2-1.3) mg/dL AST 29 (14-36) U/L ALT 16 (4-34) U/L Alkaline Phosphatase 52 (38-126) U/L Troponin I <0.012 (0.000-0.034) ng/mL Total Protein 7.9 (6.3-8.2) g/dL Albumin 4.6 (3.5-5.0) g/dL Urine Color Urine Appearance (Clear) Urine pH (5.0-8.0) Ur Specific [place] (1.001-1.035) Urine Protein (Negative) Urine Glucose (UA) (Negative) Urine Ketones (Negative) Urine Blood (Negative) Urine Nitrite (Negative) Urine Bilirubin (Negative) Urine Urobilinogen (<2.0) mg/dL Ur Leukocyte Esterase (Negative) Urine HCG, Qual (Not Detectd) 05/04/21 Range/Units 14:54 WBC (3.8-10.6) k/uL RBC (3.80-5.40) m/uL Hgb (11.4-16.0) gm/dL Hct (34.0-46.0) % MCV (80.0-100.0) fL MCH (25.0-35.0) pg MCHC (31.0-37.0) g/dL RDW (11.5-15.5) % Plt Count (150-450) k/uL MPV Neutrophils % % Lymphocytes % % Monocytes % % Eosinophils % % Basophils % % Neutrophils # (1.3-7.7) k/uL Lymphocytes # (1.0-4.8) k/uL Monocytes # (0-1.0) k/uL Eosinophils # (0-0.7) k/uL Basophils # (0-0.2) k/uL PT (9.0-12.0) sec INR (<1.2) APTT (22.0-30.0) sec Sodium (137-145) mmol/L Potassium (3.5-5.1) mmol/L Chloride (98-107) mmol/L Carbon Dioxide (22-30) mmol/L Anion Gap mmol/L BUN (7-17) mg/dL Creatinine (0.52-1.04) mg/dL Est GFR (CKD-EPI)AfAm (>60 ml/min/1.73 sqM) Est GFR (CKD-EPI)NonAf (>60 ml/min/1.73 sqM) Glucose (74-99) mg/dL Plasma Lactic Acid Kale (0.7-2.0) mmol/L Calcium (8.4-10.2) mg/dL Magnesium (1.6-2.3) mg/dL Total Bilirubin (0.2-1.3) mg/dL AST (14-36) U/L ALT (4-34) U/L Alkaline Phosphatase (38-126) U/L Troponin I (0.000-0.034) ng/mL Total Protein (6.3-8.2) g/dL Albumin (3.5-5.0) g/dL Urine Color Urine Appearance (Clear) Urine pH (5.0-8.0) Ur Specific [place] (1.001-1.035) Urine Protein (Negative) Urine Glucose (UA) (Negative) Urine Ketones (Negative) Urine Blood (Negative) Urine Nitrite (Negative) Urine Bilirubin (Negative) Urine Urobilinogen (<2.0) mg/dL Ur Leukocyte Esterase (Negative) Urine HCG, Qual Not Detected (Not Detectd) Disposition Clinical Impression: Paresthesia Disposition: HOME SELF-CARE Condition: Good Instructions (If sedation given, give patient instructions): Paresthesia (ED) Is patient prescribed a controlled substance at d/c from ED?: No Referrals: Chuy Clark MD [Primary Care Provider] - 1-2 days Peter Russ MD [REFERRING] - 1-2 days Erwin Strange MD [Medical Doctor] - 1-2 days Time of Disposition: 16:55
[2021-05-04 15:09] LABS: Basophils # (A) 0.1 k/uL (0-0.2); Basophils % (A) 1 %; Eosinophils # (A) 0.1 k/uL (0-0.7); Eosinophils % (A) 1 %; HCT 41.5 % (34.0-46.0); HGB 13.2 gm/dL (11.4-16.0); Lymphocytes # (A) 1.8 k/uL (1.0-4.8); Lymphocytes % (A) 18 %; MCH 30.2 pg (25.0-35.0); MCHC 31.9 g/dL (31.0-37.0); MCV 94.8 fL (80.0-100.0); Mean Platelet Volume 7.6; Monocytes # (A) 0.3 k/uL (0-1.0); Monocytes % (A) 3 %; Neutrophils # (A) 7.8 k/uL (1.3-7.7); Neutrophils % (A) 76 %; Platelet Count 255 k/uL (150-450); RBC 4.38 m/uL (3.80-5.40); RDW 12.9 % (11.5-15.5); WBC 10.2 k/uL (3.8-10.6)
[2021-05-04 15:21] LABS: Appearance,Urine Clear (Clear); Bilirubin,Urine Negative (Negative); Blood,Urine Negative (Negative); Color,Urine Colorless; Glucose,Urine (UA) Negative (Negative); Ketones,Urine Negative (Negative); Leukocyte Esterase,Urine Negative (Negative); Nitrite,Urine Negative (Negative); Protein,Urine Negative (Negative); Specific Gravity,Urine 1.003 (1.001-1.035); Urobilinogen,Urine <2.0 mg/dL (<2.0)
[2021-05-04 15:30] LABS: INR 0.9 (<1.2); Partial Thromboplastin Time 24.1 sec (22.0-30.0); Prothrombin Time 10.2 sec (9.0-12.0)
[2021-05-04 15:33] LABS: ALT 16 U/L (4-34); AST 29 U/L (14-36); African American GFR (CKD) >90 (>60 ml/min/1.73 sqM); Albumin 4.6 g/dL (3.5-5.0); Alkaline Phosphatase 52 U/L (38-126); Anion Gap 11 mmol/L; Blood Urea Nitrogen 14 mg/dL (7-17); Calcium 9.5 mg/dL (8.4-10.2); Carbon Dioxide 24 mmol/L (22-30); Chloride 105 mmol/L (98-107); Glucose 87 mg/dL (74-99); Magnesium 1.8 mg/dL (1.6-2.3); Non-African American GFR(CKD) >90 (>60 ml/min/1.73 sqM); Potassium 3.8 mmol/L (3.5-5.1); Sodium 140 mmol/L (137-145); Total Bilirubin <0.1 mg/dL (0.2-1.3); Total Protein 7.9 g/dL (6.3-8.2)
--- NOTE | 2021-05-04 16:01 | CT ---
EXAMINATION TYPE: CT brain wo con DATE OF EXAM: 05/04/2021 COMPARISON: 11/11/2017 HISTORY: c/o left sided facial numbness CT DLP: 1047.4 mGycm Automated exposure control for dose reduction was used. Ventricles and sulci appear normal. There is no mass effect nor midline shift. There is no sign of in tracranial hemorrhage. The calvarium is intact. There is no evidence of cerebral edema. IMPRESSION: Negative unenhanced head CT scan. No change.
[2021-05-04 17:33] VITALS: BP 124/76; PULSE 75; RESP 20
== END 2021-05-04 17:15 | disposition home or self-care (01) ==
LOC: EC 14:00
DX: R20.2 Paresthesia of skin (principal); I10 Essential (primary) hypertension
CPT/HCPCS: 36415; 70450; 80053; 81003; 81025; 83605; 83735; 84484; 85025; 85610; 85730; 93005; 99284

== ENCOUNTER → 2021-05-05 | Outpatient (CLI) | payer BC, OTHER ==
[2021-05-06 01:53] LABS: % Iron Saturation 16.33 (12.00-45.00); ALT 18 U/L (8-44); AST 23 U/L (13-35); African American GFR (CKD) 138.8 (60.0-200.0); Albumin/Globulin Ratio 1.47 (1.60-3.17); Alkaline Phosphatase 45 U/L (41-126); BUN/Creat Ratio 18.33 Ratio (12.00-20.00); Bilirubin, Conjugated <0.20 mg/dL (0.20-0.40); Calcium 8.9 mg/dL (8.7-10.3); Chloride 107 mmol/L (96-109); Chol/HDL Ratio 3.09; Cholesterol 173 mg/dL (0-200); Glucose 83 mg/dL (70-110); Iron 49 ug/dL (50-170); LDL Cholesterol,Calculated 101.6 mg/dL (0.0-131.0); Non-African American GFR(CKD) 119.8 (60.0-200.0); Sodium 140 mmol/L (135-145); Total Bilirubin 0.2 mg/dL (0.2-1.2); Total Iron Binding Capacity 300 ug/dL (228-460); Total Protein 7.4 g/dL (6.2-8.2)
[2021-05-06 02:07] LABS: Folate, Serum 21.7 ng/mL; Hepatitis A Antibody IgM Non-Reactive (Non-Reactive); Hepatitis B Core IgM Non-Reactive (Non-Reactive); Hepatitis B Surface Antigen Non-Reactive (Non-Reactive); Hepatitis C IgG Antibody Non-Reactive (Non-Reactive)
[2021-05-06 05:08] LABS: EBV - VCA IgM <10.0 U/mL (<36.0)
[2021-05-06 13:34] LABS: Ceruloplasmin 26.6 mg/dL (20.0-60.0)
== END | disposition home or self-care (01) ==
LOC: LABWHC1 15:38
PROVIDERS: ATTEND Internal Medicine
DX: R74.8 Abnormal levels of other serum enzymes (principal); R20.0 Anesthesia of skin
CPT/HCPCS: 36415; 80053; 80061; 80074; 82103; 82390; 82525; 82607; 82746; 83516; 83540; 83550; 84443; 86038; 86645; 86665; 86780

== ENCOUNTER → 2021-05-14 | Outpatient (CLI) | payer BC, OTHER ==
[2021-05-15 02:30] LABS: Walnut IgE (Food) <0.10 kU/L
[2021-05-15 10:59] LABS: Crab IgE 0.11 kU/L (<0.10); Crab IgE Class CLASS 0/1; Lobster IgE <0.10 kU/L (<0.10); Lobster IgE Class CLASS 0; Salmon IgE <0.10 kU/L (<0.10); Salmon IgE Class CLASS 0
[2021-05-15 13:43] LABS: Pineapple IgE 0.24 kU/L (<0.10); Pineapple IgE Class CLASS 0/1
[2021-05-15 13:43] LABS: Celery IgE 0.25 kU/L (<0.10); Celery IgE Class CLASS 0/1; Lettuce IgE Class CLASS 0/1
[2021-05-15 13:43] LABS: Almond IgE 0.27 kU/L (<0.10); Almond IgE Class CLASS 0/1; Hazelnut IgE 0.21 kU/L (<0.10); Hazelnut IgE Class CLASS 0/1; Onion IgE 0.28 kU/L (<0.10); Onion IgE Class CLASS 0/1
[2021-05-15 13:44] LABS: Cashew IgE <0.10 kU/L (<0.10); Cashew IgE Class CLASS 0; Oat IgE Class CLASS 0/1; Yeast Bakers/Brew IgE <0.10 kU/L (<0.10); Yeast Bakers/Brew IgE Class CLASS 0
[2021-05-15 13:44] LABS: Apple IgE Class CLASS 0/1
[2021-05-15 13:45] LABS: Avocado Class CLASS 0/1; Banana IgE Class CLASS 0/1; Cow's Milk IgE Class CLASS 0; Egg White IgE <0.10 kU/L (<0.10); Hazelnut IgE 0.22 kU/L (<0.10); Hazelnut IgE Class CLASS 0/1; Kiwi IgE 0.22 kU/L (<0.10); Kiwi IgE Class CLASS 0/1; Peanut IgE 0.33 kU/L (<0.10); Potato IgE 0.29 kU/L (<0.10); Potato IgE Class CLASS 0/1; Soybean IgE 0.25 kU/L (<0.10)
[2021-05-15 13:45] LABS: Chocolate IgE Class CLASS 0; Coffee IgE <0.10 kU/L (<0.10); Coffee IgE Class CLASS 0; Gluten IgE Class CLASS 0/1
[2021-05-15 13:46] LABS: Tea IgE <0.10 kU/L (<0.10); Tea IgE Class CLASS 0
[2021-05-16 17:45] LABS: Tea IgG 2.7 mcg/mL
[2021-05-18 13:20] LABS: Chocolate IgG 4.6 mcg/mL (< 2.0)
[2021-05-18 13:20] LABS: Beef IgG 30.7 mcg/mL (< 2.0); Pork IgG 5.4 mcg/mL (< 2.0)
[2021-05-18 13:20] LABS: Soybean IgG 4.6 mcg/mL (< 2.0)
[2021-05-18 13:21] LABS: Walnut IgG 3.9 mcg/mL (< 2.0)
[2021-05-18 13:21] LABS: Chicken Meat IgG 3.6 mcg/mL (< 2.0)
[2021-05-18 13:22] LABS: Celery IgG 8.9 mcg/mL (< 2.0)
[2021-05-18 13:22] LABS: Coffee IgG 4.1 mcg/mL (< 2.0); Wheat IgG 11.5 mcg/mL (< 2.0)
[2021-05-18 13:22] LABS: Tomato IgG 3.4 mcg/mL (< 2.0); Wheat IgG 9.9 mcg/mL (< 2.0)
[2021-05-18 13:23] LABS: Banana IgG 26.2 mcg/mL (< 2.0); Corn IgG 7.2 mcg/mL (< 2.0); Cow's Milk IgG 76.6 mcg/mL (< 2.0); Peanut IgG 4.3 mcg/mL (< 2.0)
[2021-05-18 13:23] LABS: Corn IgG 7.6 mcg/mL (< 2.0); Rice IgG 6.8 mcg/mL (< 2.0)
[2021-05-18 13:24] LABS: Apple IgG 5.9 mcg/mL (< 2.0); Orange IgG 4.6 mcg/mL (< 2.0); Potato IgG 2.1 mcg/mL (< 2.0)
[2021-05-18 13:24] LABS: Oat IgG 8.1 mcg/mL (< 2.0)
== END | disposition home or self-care (01) ==
LOC: LABWHC1 15:42
PROVIDERS: ATTEND Otolaryngology
DX: L50.0 Allergic urticaria (principal)
CPT/HCPCS: 36415; 86001; 86003

== ENCOUNTER → 2021-06-13 | Outpatient (CLI) | payer BC, OTHER ==
--- NOTE | 2021-06-13 08:11 | US ---
EXAMINATION TYPE: US abdomen limited DATE OF EXAM: 06/13/2021 COMPARISON: CT 11/01/2019, US 02/27/2019 CLINICAL HISTORY: R74.8 ELEVATED LIVER ENZYMES. Takes medication for allergies and estrogen.C/o RUQ p ain. Patient stated has food allergies. EXAM MEASUREMENTS: Liver Length: 19.3 cm Gallbladder Wall: 0.2 cm CBD: 0.2 cm Right Kidney: 10.3 x 5.5 x 4.2 cm Pancreas: wnl in its visualized portions Liver: enlarged as is greater than 19.0cm span; mildly attenuated posteriorly, question coarsened ec hotexture Gallbladder: wnl Evidence for sonographic Locke's sign: no CBD: wnl Right Kidney: wnl IMPRESSION: Hepatomegaly, correlate for possible hepatocellular disease, hepatic steatosis, limited e xam
== END | disposition home or self-care (01) ==
LOC: RADUSWWP 07:01
PROVIDERS: ATTEND Internal Medicine
DX: R16.0 Hepatomegaly, not elsewhere classified (principal)
CPT/HCPCS: 76705

== ENCOUNTER 2021-06-27 11:54 | Emergency (ER) | payer BC, OTHER ==
[2021-06-27 12:27] VITALS: BP 148/89
[2021-06-27] MEDS ORDERED: DEXAMETHASONE SOD PHOSPHATE 10 MG/ML 1 ML VIAL IM STA (13:34)
--- NOTE | 2021-06-27 13:52 | ED ---
Allergic Reaction HPI - General Chief complaint: Allergic Reaction Stated complaint: allergic reaction Time Seen by Provider: 06/27/21 13:21 Source: patient Mode of arrival: ambulatory Limitations: no limitations - History of Present Illness Initial Comments: 35-year-old female presenting to the emergency department with chief complaint of ALLERGIC reaction. Patient reports she has a lot of ALLERGIES but believes that she got some of the chicken feed material interphase causing her to become anxious and feels like her throat is closing. States this occurred about 3 hours prior to arrival. She denies any difficulty breathing or swallowing. She denies any chest pain or shortness of breath. Denies previous reactions to chicken feed. - Related Data Home Medications Medication Instructions Recorded Confirmed Cholecalciferol [Vitamin D3 (25 50 mcg PO HS 05/04/21 06/27/21 Mcg = 1000 Iu)] Loratadine [Claritin] 10 mg PO HS 05/04/21 06/27/21 EPINEPHrine [Auvi-Q] 0.3 mg IM ONCE PRN 06/27/21 06/27/21 L.acidoph,Paracasei, B.lactis 1 cap PO HS 06/27/21 06/27/21 [Probiotic] Pnv,Calcium 72/Iron/Folic Acid 1 tab PO HS 06/27/21 06/27/21 [ Plus Tablet] diphenhydrAMINE [Benadryl] 25 - 50 mg PO DAILY 06/27/21 06/27/21 Allergies Allergy/AdvReac Type Severity Reaction Status Date / Time gluten Allergy Nausea & Verified 06/27/21 13:53 Vomiting & Diarrhea oats Allergy Swelling Verified 06/27/21 13:53 onion Allergy Unknown Verified 06/27/21 13:53 peanut Allergy Anaphylaxis Verified 06/27/21 13:53 soybean Allergy Swelling Verified 06/27/21 13:53 strawberry Allergy Unknown Verified 06/27/21 13:53 tomato Allergy Swelling Verified 06/27/21 13:53 tree nut Allergy Anaphylaxis Verified 06/27/21 13:53 wheat Allergy Swelling Verified 06/27/21 13:53 corn AdvReac Rash/Hives Verified 06/27/21 13:53 shellfish derived [Shellfish] AdvReac Nausea & Verified 06/27/21 13:53 Vomiting & Diarrhea Review of Systems ROS Statement: Those systems with pertinent positive or pertinent negative responses have been documented in the HPI. ROS Other: All systems not noted in ROS Statement are negative. Past Medical History Past Medical History: Hypertension, Musculoskeletal Disorder Additional Past Medical History / Comment(s): hypertension during pregnancies, not normally, sprained left ankle last week-has hollie wrap History of Any Multi-Drug Resistant Organisms: ESBL Date of last positivie culture/infection: 07/12/18 MDRO Source:: ESBL URINE Past Surgical History: No Surgical Hx Reported Additional Past Surgical History / Comment(s): wisdom teeth Past Anesthesia/Blood Transfusion Reactions: No Reported Reaction Additional Past Anesthesia/Blood Transfusion Reaction / Comment(s): has never had general anesthesia Past Psychological History: Anxiety Smoking Status: Never smoker Past Alcohol Use History: None Reported Past Drug Use History: None Reported - Past Family History Mother Additional Family Medical History / Comment(s): Hypoglycemia General Exam Limitations: no limitations General appearance: alert, in no apparent distress, anxious Head exam: Present: atraumatic, normocephalic, normal inspection Eye exam: Present: normal appearance Pupils: Present: normal accommodation ENT exam: Present: normal exam, normal oropharynx, mucous membranes moist Neck exam: Present: normal inspection, full ROM. Absent: tenderness Respiratory exam: Present: normal lung sounds bilaterally. Absent: respiratory distress, wheezes, rales, rhonchi, stridor, chest wall tenderness, accessory muscle use Cardiovascular Exam: Present: regular rate, normal rhythm, normal heart sounds. Absent: systolic murmur, diastolic murmur Extremities exam: Present: normal inspection, full ROM Back exam: Present: normal inspection, full ROM Neurological exam: Present: alert, oriented X3 Psychiatric exam: Present: normal affect, normal mood Skin exam: Present: warm, dry, intact, normal color Course Vital Signs 06/27/21 12:20 Temperature 98.1 F Pulse Rate 84 Respiratory 20 Rate Blood Pressure 148/89 O2 Sat by Pulse 99 Oximetry Medical Decision Making - Medical Decision Making 35-year-old female presenting to emergency with a chief complaint of ALLERGIC reaction. On physical examination, patient does not appear to be in respiratory distress. She is talking in complete sentences. Patient was given 10 g of Decadron. On reevaluation, she reports improvement in symptoms. Able discharged with 3 days of prednisone. Return parameters were thoroughly discussed the patient is a visiting agreeable. Disposition Clinical Impression: Allergic reaction Disposition: HOME SELF-CARE Condition: Stable Instructions (If sedation given, give patient instructions): Anaphylaxis (ED) Additional Instructions: Please return to the Emergency Department if symptoms worsen or any other concerns. Is patient prescribed a controlled substance at d/c from ED?: No Referrals: Chuy Clark MD [Primary Care Provider] - 1-2 days Time of Disposition: 14:49
[2021-06-27 14:48] LABS: Glucose,Whole Blood 76 mg/dL (75-99)
[2021-06-27 14:51] VITALS: RESP 18
[2021-06-27 14:59] VITALS: PULSE 77; TEMP 98.3
== END 2021-06-27 14:59 | disposition home or self-care (01) ==
LOC: EC 11:54
DX: T78.40XA Allergy, unspecified, initial encounter (principal); I10 Essential (primary) hypertension; F41.9 Anxiety disorder, unspecified; Z91.018 Allergy to other foods; Z91.010 Allergy to peanuts; Z91.013 Allergy to seafood
CPT/HCPCS: 99283; 96372; 36415; J1100

== ENCOUNTER 2021-07-03 22:05 | Emergency (ER) | payer BC, OTHER ==
[2021-07-03 22:15] VITALS: RESP 18; TEMP 98.2
[2021-07-03] MEDS ORDERED: SODIUM CHLORIDE 0.9% 1,000 ML IV STA (23:10)
[2021-07-03] MEDS ORDERED: ONDANSETRON 4 MG/2 ML VIAL IVP STA (23:11)
--- NOTE | 2021-07-03 23:32 | ED ---
Allergic Reaction HPI - General Chief complaint: Allergic Reaction Stated complaint: Allergic Reaction Time Seen by Provider: 07/03/21 22:38 Source: patient, family Mode of arrival: ambulatory - History of Present Illness Initial Comments: 35-year-old female presents to emergency department the chief complaint of ALLERGIC reaction. Patient reports about 2 weeks ago she was diagnosed with multiple corn based ALLERGIES and is now attempting to find medicines and food that is compatible. Patient reports she took a corn free Benadryl (M-Dryl) over the last several days which she believes may have caused her to get a tingling sensation in her throat. Reports she feels some pressure in the throat but denies any difficulty swallowing or talking. Denies any difficulty breathing nausea or vomiting. She denies any chest pain or shortness of breath at this time. States she is currently following up with an enterprise resource planning consultant and working with her primary care physician. - Related Data Home Medications Medication Instructions Recorded Confirmed Cholecalciferol [Vitamin D3 (25 50 mcg PO HS 05/04/21 06/27/21 Mcg = 1000 Iu)] Loratadine [Claritin] 10 mg PO HS 05/04/21 06/27/21 EPINEPHrine [Auvi-Q] 0.3 mg IM ONCE PRN 06/27/21 06/27/21 L.acidoph,Paracasei, B.lactis 1 cap PO HS 06/27/21 06/27/21 [Probiotic] Pnv,Calcium 72/Iron/Folic Acid 1 tab PO HS 06/27/21 06/27/21 [ Plus Tablet] diphenhydrAMINE [Benadryl] 25 - 50 mg PO DAILY 06/27/21 06/27/21 Previous Rx's Medication Instructions Recorded predniSONE [Deltasone] 20 mg PO DAILY #3 tab 06/27/21 Allergies Allergy/AdvReac Type Severity Reaction Status Date / Time gluten Allergy Nausea & Verified 07/03/21 22:14 Vomiting & Diarrhea oats Allergy Swelling Verified 07/03/21 22:14 onion Allergy Unknown Verified 07/03/21 22:14 peanut Allergy Anaphylaxis Verified 07/03/21 22:14 soybean Allergy Swelling Verified 07/03/21 22:14 strawberry Allergy Unknown Verified 07/03/21 22:14 tomato Allergy Swelling Verified 07/03/21 22:14 tree nut Allergy Anaphylaxis Verified 07/03/21 22:14 wheat Allergy Swelling Verified 07/03/21 22:14 corn AdvReac Rash/Hives Verified 07/03/21 22:14 shellfish derived [Shellfish] AdvReac Nausea & Verified 07/03/21 22:14 Vomiting & Diarrhea Review of Systems ROS Statement: Those systems with pertinent positive or pertinent negative responses have been documented in the HPI. ROS Other: All systems not noted in ROS Statement are negative. Past Medical History Past Medical History: Hypertension, Musculoskeletal Disorder Additional Past Medical History / Comment(s): hypertension during pregnancies, not normally, sprained left ankle last week-has hollie wrap History of Any Multi-Drug Resistant Organisms: ESBL Date of last positivie culture/infection: 07/12/18 MDRO Source:: ESBL URINE Past Surgical History: No Surgical Hx Reported Additional Past Surgical History / Comment(s): wisdom teeth Past Anesthesia/Blood Transfusion Reactions: No Reported Reaction Additional Past Anesthesia/Blood Transfusion Reaction / Comment(s): has never had general anesthesia Past Psychological History: Anxiety Smoking Status: Never smoker Past Alcohol Use History: None Reported Past Drug Use History: None Reported - Past Family History Mother Additional Family Medical History / Comment(s): Hypoglycemia General Exam Limitations: no limitations General appearance: alert, in no apparent distress, anxious Head exam: Present: atraumatic, normocephalic, normal inspection Eye exam: Present: normal appearance, PERRL, EOMI Pupils: Present: normal accommodation ENT exam: Present: normal exam, normal oropharynx, mucous membranes moist, TM's normal bilaterally, normal external ear exam Neck exam: Present: normal inspection, full ROM. Absent: tenderness, lymphadenopathy Respiratory exam: Present: normal lung sounds bilaterally. Absent: respiratory distress, wheezes, rales, rhonchi, stridor, chest wall tenderness, accessory muscle use Cardiovascular Exam: Present: regular rate, normal rhythm, normal heart sounds. Absent: systolic murmur Extremities exam: Present: normal inspection, full ROM Back exam: Present: normal inspection, full ROM Neurological exam: Present: alert, oriented X3 Psychiatric exam: Present: normal affect, anxious Skin exam: Present: warm, dry, intact, normal color Course Vital Signs 07/03/21 07/04/21 22:12 00:10 Temperature 98.2 F Pulse Rate 86 80 Respiratory 18 18 Rate Blood Pressure 143/87 143/82 O2 Sat by Pulse 99 98 Oximetry Medical Decision Making - Medical Decision Making 35-year-old female presents to the emergency department with a chief complaint of ALLERGIC reaction. On physical examination, patient is quite anxious and tearful when talking. She does not appear to be in any respiratory distress. She is talking in complete sentences. She drank water multiple times apparently without any difficulty swallowing. I saw the patient about one week ago with a similar complaint. She was given Decadron which she believes helped her symptoms minimally but it gave her a headache. I did offer steroid treatment at this time, she declined. Patient continues to be tearful. I did offer laboratory workup which she agreed to. This revealed no acute findings. Urine was also unremarkable. No . I did offer fluids and Zofran because she complained of some nausea. She declined because she is concerned they may cont ain corn-based products. I talked to the inpatient pharmacist who states no corn-based products are in any steroids or fluids. At this time, patient states she feels comfortable going home. Again, patient is otherwise well-appearing with no signs of respiratory distress or skin mottling. vital signs are within normal limits. - Lab Data Result diagrams: 07/03/21 23:45 07/03/21 23:45 Lab Results 07/03/21 07/03/21 07/03/21 Range/Units 23:45 23:45 23:45 WBC 11.3 H (3.8-10.6) k/uL RBC 4.13 (3.80-5.40) m/uL Hgb 13.5 (11.4-16.0) gm/dL Hct 38.8 (34.0-46.0) % MCV 93.9 (80.0-100.0) fL MCH 32.7 (25.0-35.0) pg MCHC 34.8 (31.0-37.0) g/dL RDW 11.8 (11.5-15.5) % Plt Count 287 (150-450) k/uL MPV 8.1 Neutrophils % 70 % Lymphocytes % 24 % Monocytes % 4 % Eosinophils % 1 % Basophils % 1 % Neutrophils # 7.9 H (1.3-7.7) k/uL Lymphocytes # 2.7 (1.0-4.8) k/uL Monocytes # 0.5 (0-1.0) k/uL Eosinophils # 0.1 (0-0.7) k/uL Basophils # 0.1 (0-0.2) k/uL Sodium (137-145) mmol/L Potassium (3.5-5.1) mmol/L Chloride (98-107) mmol/L Carbon Dioxide (22-30) mmol/L Anion Gap mmol/L BUN (7-17) mg/dL Creatinine (0.52-1.04) mg/dL Est GFR (CKD-EPI)AfAm (>60 ml/min/1.73 sqM) Est GFR (CKD-EPI)NonAf (>60 ml/min/1.73 sqM) Glucose (74-99) mg/dL Calcium (8.4-10.2) mg/dL Total Bilirubin (0.2-1.3) mg/dL AST (14-36) U/L ALT (4-34) U/L Alkaline Phosphatase (38-126) U/L Total Protein (6.3-8.2) g/dL Albumin (3.5-5.0) g/dL Urine Color Light Yellow Urine Appearance Cloudy H (Clear) Urine pH 6.0 (5.0-8.0) Ur Specific [place] 1.002 (1.001-1.035) Urine Protein Negative (Negative) Urine Glucose (UA) Negative (Negative) Urine Ketones Negative (Negative) Urine Blood Large H (Negative) Urine Nitrite Negative (Negative) Urine Bilirubin Negative (Negative) Urine Urobilinogen <2.0 (<2.0) mg/dL Ur Leukocyte Esterase Negative (Negative) Urine RBC 23 H (0-5) /hpf Urine WBC 1 (0-5) /hpf Ur Squamous Epith Cells 3 (0-4) /hpf Urine Bacteria Rare H (None) /hpf Urine HCG, Qual Not Detected (Not Detectd) 07/03/21 Range/Units 23:45 WBC (3.8-10.6) k/uL RBC (3.80-5.40) m/uL Hgb (11.4-16.0) gm/dL Hct (34.0-46.0) % MCV (80.0-100.0) fL MCH (25.0-35.0) pg MCHC (31.0-37.0) g/dL RDW (11.5-15.5) % Plt Count (150-450) k/uL MPV Neutrophils % % Lymphocytes % % Monocytes % % Eosinophils % % Basophils % % Neutrophils # (1.3-7.7) k/uL Lymphocytes # (1.0-4.8) k/uL Monocytes # (0-1.0) k/uL Eosinophils # (0-0.7) k/uL Basophils # (0-0.2) k/uL Sodium 129 L (137-145) mmol/L Potassium 3.5 (3.5-5.1) mmol/L Chloride 97 L (98-107) mmol/L Carbon Dioxide 21 L (22-30) mmol/L Anion Gap 11 mmol/L BUN 9 (7-17) mg/dL Creatinine 0.56 (0.52-1.04) mg/dL Est GFR (CKD-EPI)AfAm >90 (>60 ml/min/1.73 sqM) Est GFR (CKD-EPI)NonAf >90 (>60 ml/min/1.73 sqM) Glucose 97 (74-99) mg/dL Calcium 9.1 (8.4-10.2) mg/dL Total Bilirubin 0.6 (0.2-1.3) mg/dL AST 24 (14-36) U/L ALT 15 (4-34) U/L Alkaline Phosphatase 49 (38-126) U/L Total Protein 7.8 (6.3-8.2) g/dL Albumin 4.4 (3.5-5.0) g/dL Urine Color Urine Appearance (Clear) Urine pH (5.0-8.0) Ur Specific [place] (1.001-1.035) Urine Protein (Negative) Urine Glucose (UA) (Negative) Urine Ketones (Negative) Urine Blood (Negative) Urine Nitrite (Negative) Urine Bilirubin (Negative) Urine Urobilinogen (<2.0) mg/dL Ur Leukocyte Esterase (Negative) Urine RBC (0-5) /hpf Urine WBC (0-5) /hpf Ur Squamous Epith Cells (0-4) /hpf Urine Bacteria (None) /hpf Urine HCG, Qual (Not Detectd) Disposition Clinical Impression: Allergic reaction to drug Disposition: HOME SELF-CARE Condition: Stable Instructions (If sedation given, give patient instructions): Anaphylaxis (ED), General Allergic Reaction (ED) Additional Instructions: Please return to the Emergency Department if symptoms worsen or any other concerns. Is patient prescribed a controlled substance at d/c from ED?: No Referrals: Chuy Clark MD [Primary Care Provider] - 1-2 days Time of Disposition: 00:04
[2021-07-04 00:06] LABS: Basophils # (A) 0.1 k/uL (0-0.2); Basophils % (A) 1 %; Eosinophils # (A) 0.1 k/uL (0-0.7); Eosinophils % (A) 1 %; HCT 38.8 % (34.0-46.0); HGB 13.5 gm/dL (11.4-16.0); Lymphocytes # (A) 2.7 k/uL (1.0-4.8); Lymphocytes % (A) 24 %; MCH 32.7 pg (25.0-35.0); MCHC 34.8 g/dL (31.0-37.0); MCV 93.9 fL (80.0-100.0); Mean Platelet Volume 8.1; Monocytes # (A) 0.5 k/uL (0-1.0); Monocytes % (A) 4 %; Neutrophils # (A) 7.9 k/uL (1.3-7.7); Neutrophils % (A) 70 %; Platelet Count 287 k/uL (150-450); RBC 4.13 m/uL (3.80-5.40); RDW 11.8 % (11.5-15.5); WBC 11.3 k/uL (3.8-10.6)
[2021-07-04 00:11] VITALS: BP 143/82; PULSE 80
[2021-07-04 00:15] LABS: Appearance,Urine Cloudy (Clear); Bacteria,Urine Rare /hpf; Bilirubin,Urine Negative (Negative); Blood,Urine Large (Negative); Color,Urine Light Yellow; Glucose,Urine (UA) Negative (Negative); Ketones,Urine Negative (Negative); Leukocyte Esterase,Urine Negative (Negative); Nitrite,Urine Negative (Negative); Protein,Urine Negative (Negative); RBC,Urine 23 /hpf (0-5); Specific Gravity,Urine 1.002 (1.001-1.035); Squamous Epithelial Cell,Urine 3 /hpf (0-4); Urobilinogen,Urine <2.0 mg/dL (<2.0); WBC,Urine 1 /hpf (0-5)
[2021-07-04 00:23] LABS: ALT 15 U/L (4-34); AST 24 U/L (14-36); African American GFR (CKD) >90 (>60 ml/min/1.73 sqM); Albumin 4.4 g/dL (3.5-5.0); Alkaline Phosphatase 49 U/L (38-126); Anion Gap 11 mmol/L; Blood Urea Nitrogen 9 mg/dL (7-17); Calcium 9.1 mg/dL (8.4-10.2); Carbon Dioxide 21 mmol/L (22-30); Chloride 97 mmol/L (98-107); Glucose 97 mg/dL (74-99); Non-African American GFR(CKD) >90 (>60 ml/min/1.73 sqM); Potassium 3.5 mmol/L (3.5-5.1); Sodium 129 mmol/L (137-145); Total Bilirubin 0.6 mg/dL (0.2-1.3); Total Protein 7.8 g/dL (6.3-8.2)
== END 2021-07-04 00:15 | disposition home or self-care (01) ==
LOC: EC 22:05
DX: F41.9 Anxiety disorder, unspecified (principal); T50.905A Adverse effect of unspecified drugs, medicaments and biological substances, initial encounter; I10 Essential (primary) hypertension; Z79.52 Long term (current) use of systemic steroids; Z79.899 Other long term (current) drug therapy
CPT/HCPCS: 36415; 80053; 81001; 81025; 85025; 99283

== ENCOUNTER 2021-08-15 14:34 | Emergency (ER) | payer BC, OTHER ==
[2021-08-15] MEDS ORDERED: methylPREDNISolone SOD SUCCI 125 MG/2 ML VIAL IV STA (15:28)
[2021-08-15] MEDS ORDERED: diphenhydrAMINE 50 MG/ML 1 ML VIAL IVP STA ×2 (15:28→18:05)
--- NOTE | 2021-08-15 15:35 | ED ---
Allergic Reaction HPI - General Chief complaint: Allergic Reaction Stated complaint: Allergic Reaction Time Seen by Provider: 08/15/21 15:04 Source: patient, RN notes reviewed, old records reviewed Mode of arrival: ambulatory Limitations: no limitations - History of Present Illness Initial Comments: Patient is a 35-year-old female presenting to emergency Department with complaints of a possible ALLERGIC reaction. 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 She takes prednisone 2.5 mg daily. She states after she took prednisone at about 12:00 today she noticed some different pains throughout her body, achiness and tingles. She got concerned when she had a sore throat and came into the ER for evaluation. She's been able to tolerate water. She is in no acute distress, no trouble breathing, able to speak complete sentences. Denies rashes, she has some mild nausea, no vomiting. No abdominal pain. She denies any chest pain or shortness of breath. Patient states when this happens she usually just takes some more prednisone, but she cannot concerned for how intense her symptoms during came in for evaluation. She denies being . She has no further complaints. Her vital signs are stable upon arrival. - Related Data Home Medications Medication Instructions Recorded Confirmed EPINEPHrine (Auto Inject) [Epipen] 0.3 mg IM ONCE PRN 08/15/21 08/15/21 predniSONE 2.5 mg PO DAILY 08/15/21 08/15/21 Allergies Allergy/AdvReac Type Severity Reaction Status Date / Time gluten Allergy Nausea & Verified 08/15/21 17:03 Vomiting & Diarrhea oats Allergy Swelling Verified 08/15/21 17:03 onion Allergy Unknown Verified 08/15/21 17:03 peanut Allergy Anaphylaxis Verified 08/15/21 17:03 prednisone Allergy Unknown Verified 08/15/21 17:03 soybean Allergy Swelling Verified 08/15/21 17:03 strawberry Allergy Unknown Verified 08/15/21 17:03 tomato Allergy Swelling Verified 08/15/21 17:03 tree nut Allergy Anaphylaxis Verified 08/15/21 17:03 wheat Allergy Swelling Verified 08/15/21 17:03 corn AdvReac Rash/Hives Verified 08/15/21 17:03 shellfish derived [Shellfish] AdvReac Nausea & Verified 08/15/21 17:03 Vomiting & Diarrhea Review of Systems ROS Statement: Those systems with pertinent positive or pertinent negative responses have been documented in the HPI. ROS Other: All systems not noted in ROS Statement are negative. Past Medical History Past Medical History: Hypertension, Musculoskeletal Disorder Additional Past Medical History / Comment(s): hypertension during pregnancies, not normally, sprained left ankle last week-has hollie wrap History of Any Multi-Drug Resistant Organisms: ESBL Date of last positivie culture/infection: 07/12/18 MDRO Source:: ESBL URINE Past Surgical History: No Surgical Hx Reported Additional Past Surgical History / Comment(s): wisdom teeth Past Anesthesia/Blood Transfusion Reactions: No Reported Reaction Additional Past Anesthesia/Blood Transfusion Reaction / Comment(s): has never had general anesthesia Past Psychological History: Anxiety Smoking Status: Never smoker Past Alcohol Use History: None Reported Past Drug Use History: None Reported - Past Family History Mother Additional Family Medical History / Comment(s): Hypoglycemia General Exam - General Exam Comments Initial Comments: GENERAL: Patient is well-developed and well-nourished. Patient is nontoxic and in no acute distress. HEAD: Atraumatic, normocephalic. EYES: Pupils equal round and reactive to light, extraocular movements intact, sclera anicteric, conjunctiva are normal. Eyelids were unremarkable. ENT: Nares patent, oropharynx clear without exudates. Moist mucous membranes. NECK: Normal range of motion, supple without lymphadenopathy or JVD. LUNGS: Unlabored respirations. Breath sounds clear to auscultation bilaterally and equal. No wheezes rales or rhonchi. HEART: Regular rate and rhythm without murmurs, rubs or gallops. ABDOMEN: Soft, nontender, normoactive bowel sounds. No guarding, no rebound. No masses appreciated. MUSCULOSKELETAL: Normal extremities with adequate strength and normal range of motion, no pitting or edema. No clubbing or cyanosis. NEUROLOGICAL: Patient is alert and oriented x 3. Motor and sensory are also intact. Symmetrical smile. Normal speech, normal gait. PSYCH: Normal mood, normal affect. SKIN: Warm, Dry, normal turgor, no rashes or lesions noted. Limitations: no limitations Course Vital Signs 08/15/21 14:48 Pulse Rate 94 Respiratory 20 Rate Blood Pressure 159/83 O2 Sat by Pulse 96 Oximetry Medical Decision Making - Medical Decision Making Patient is a 35-year-old female with history of many ALLERGIES, presenting with possible ALLERGIC reaction. Her vitals are stable she is in no acute distress. Her exam is unremarkable. Patient is highly concerned with using certain medications secondary to her cornstarch ALLERGY. I told her that I recommended Benadryl and steroids. She declined the Benadryl secondary to possibility having cornstarch in there. She did agree to steroids. She is resting comfortably, no acute distress. No rashes, no worsening symptoms or vitals are stable. She stable for discharge. Recommended following up with her case repairer. She is agreeable to this plan of care. Disposition Clinical Impression: Food allergy Disposition: HOME SELF-CARE Condition: Stable Instructions (If sedation given, give patient instructions): Food Allergy (ED) Additional Instructions: Please return to the Emergency Department if symptoms worsen or any other concerns. Follow-up with your case repairer. Is patient prescribed a controlled substance at d/c from ED?: No Referrals: Chuy Clark MD [Primary Care Provider] - 1-2 days Time of Disposition: 17:46
[2021-08-15 17:50] VITALS: RESP 18
[2021-08-15 20:17] VITALS: BP 143/88; PULSE 94; TEMP 98.9
== END 2021-08-15 19:40 | disposition home or self-care (01) ==
LOC: EC 14:34
DX: T78.1XXA Other adverse food reactions, not elsewhere classified, initial encounter (principal); I10 Essential (primary) hypertension; F41.9 Anxiety disorder, unspecified; Z91.018 Allergy to other foods
CPT/HCPCS: 99283; 96374; 96375; J1200; J2930

== ENCOUNTER → 2021-08-20 | Outpatient (CLI) | payer BC, OTHER ==
[2021-08-20 15:41] LABS: RBC,Urine >182 /hpf (0-5); WBC,Urine >182 /hpf (0-5)
[2021-08-20 15:42] LABS: Appearance,Urine Bloody (Clear); Color,Urine Light Red
[2021-08-20 23:00] LABS: Basophils # (A) 0.05 X 10*3/uL (0.00-0.10); Basophils % (A) 0.6 %; Eosinophils # (A) 0.08 X 10*3/uL (0.04-0.35); Eosinophils % (A) 0.9 %; HCT 42.6 % (37.2-46.3); HGB 14.1 g/dL (12.0-15.0); Lymphocytes # (A) 1.77 X 10*3/uL (0.90-5.00); MCH 32.5 pg (27.0-32.0); MCHC 33.1 g/dL (32.0-37.0); MCV 98.2 fL (80.0-97.0); Mean Platelet Volume 11.3 fL (9.5-12.2); Monocytes # (A) 0.43 X 10*3/uL (0.20-1.00); Monocytes % (A) 5.1 %; Neutrophils # (A) 6.07 X 10*3/uL (1.80-7.70); Neutrophils % (A) 71.9 %; Platelet Count 307 X 10*3/uL (140-440); RBC 4.34 X 10*6/uL (4.10-5.20); RDW 12.8 % (11.5-14.5); WBC 8.44 X 10*3/uL (4.50-10.00)
[2021-08-21 00:19] LABS: Erythrocyte Sedimentation Rate 13 mm/Hr (0-20)
[2021-08-21 08:47] LABS: C Reactive Protein <0.30 mg/dL (0.00-0.80); Rheumatoid Factor, Qnt <10 IU/mL (0-15)
[2021-08-21 08:52] LABS: Thyroid Peroxidase Antibodies <9.0 U/mL (0.0-33.0)
== END | disposition home or self-care (01) ==
LOC: LABWHC1 14:17
PROVIDERS: ATTEND Allergy & Immunology
DX: T78.3XXA Angioneurotic edema, initial encounter (principal); T78.01XA Anaphylactic reaction due to peanuts, initial encounter; R06.02 Shortness of breath; R23.2 Flushing; R11.2 Nausea with vomiting, unspecified
CPT/HCPCS: 36415; 82785; 83520; 84432; 84439; 84443; 85025; 85652; 86038; 86140; 86160; 86161; 86162; 86332; 86376; 86431; 86780

== ENCOUNTER 2021-10-07 08:32 | Day surgery (SDC) | payer BC, OTHER ==
[2021-10-02 09:22] VITALS: BMI 29.1
[~2021-10-07 08:32] MED LIST changes: -DEXAMETHASONE SOD PHOSPHATE 10 MG/ML 1 ML VIAL IV ONE; +FAMOTIDINE 20 MG/2 ML VIAL IV ONE; +LIDOCAINE 1% (10MG/ML) FOR IV START INTRADERMA PRN; -MIDAZOLAM 2 MG/2 ML VIAL IV PRN; -ONDANSETRON 4 MG/2 ML VIAL IVP ONE; -Pre Op ABX Message 1 EACH MISC MISCELLANE ONE; +diphenhydrAMINE 50 MG/ML 1 ML VIAL IVP PRN
[2021-10-07 09:47] VITALS: TEMP 97
[2021-10-07] MEDS ORDERED: SODIUM CHLORIDE 0.9% 1,000 ML IV ONE ×2 (09:57)
[2021-10-07] MEDS ORDERED: diphenhydrAMINE 50 MG/ML 1 ML VIAL ONE (09:57)
[2021-10-07 10:06] LABS: Glucose,Whole Blood 80 mg/dL (75-99)
[2021-10-07] MEDS ORDERED: PROPOFOL 10 MG/ML 20 ML VIAL IV ONE (10:07)
--- NOTE | 2021-10-07 10:11 | P.GSHP ---
History of Present Illness H&P Date: 10/07/21 Chief Complaint: Abdominal pain 36-year-old female here today for upper endoscopy. Describes intermittent right upper quadrant pain with bloating. Episodes 3-4 times per week. Some nausea at times. Symptoms have improved after modifying her diet. Patient with multiple ALLERGIES. Past Medical History Past Medical History: GERD/Reflux, Musculoskeletal Disorder, Skin Disorder Additional Past Medical History / Comment(s): had Covid 08-29-2021,urticaria-Autoimmune condition,hypertension during pregnancies, "severe allergic Rxs to most foods" frequent headaches, thraot swelling and food gets stuck, hx bronchitis, severe itcing,constipation/diarrhea,IBS, "non fatty liver disease", eczema, hypoglycemia, anemia, pt states started in June 2021 intollerance to most foods and environmental allergies History of Any Multi-Drug Resistant Organisms: ESBL Date of last positivie culture/infection: 07/12/18 MDRO Source:: ESBL URINE Past Surgical History: Tubal Ligation Additional Past Surgical History / Comment(s): . Past Anesthesia/Blood Transfusion Reactions: Postoperative Nausea & Vomiting (PONV) Additional Past Anesthesia/Blood Transfusion Reaction / Comment(s): severe PONV and "Blacked out" after tubal ligation Smoking Status: Never smoker - Past Family History Mother Additional Family Medical History / Comment(s): Hypoglycemia Father Family Medical History: Cancer Medications and Allergies Home Medications Medication Instructions Recorded Confirmed Type EPINEPHrine (Auto Inject) [Epipen] 0.3 mg IM ONCE PRN 08/15/21 10/02/21 History Coumpoud Benadryl 25 mg PO Q6H PRN 10/02/21 10/02/21 History Ketorolac 0.5% Ophth Soln [Acular 1 drops RIGHT EYE DAILY 10/02/21 10/02/21 History 0.5%] Olopatadine HCl [Patanol 0.1%] 1 drop BOTH EYES DAILY 10/02/21 10/02/21 History Xyzal Compound 5 mg PO BID 10/02/21 10/03/21 History Allergies Allergy/AdvReac Type Severity Reaction Status Date / Time corn syrup Allergy throat Verified 10/02/21 09:05 swelling gluten Allergy Nausea & Verified 10/02/21 09:05 Vomiting & Diarrhea oats Allergy Swelling Verified 10/02/21 09:05 onion Allergy Unknown Verified 10/02/21 09:05 peanut Allergy Anaphylaxis Verified 10/02/21 09:05 prednisone Allergy Unknown Verified 10/02/21 09:05 soybean Allergy Swelling Verified 10/02/21 09:05 strawberry Allergy Unknown Verified 10/02/21 09:05 tomato Allergy Swelling Verified 10/02/21 09:05 tree nut Allergy Anaphylaxis Verified 10/02/21 09:05 wheat Allergy Anaphylaxis Verified 10/02/21 09:05 corn AdvReac Anaphylaxis Verified 10/02/21 09:05 shellfish derived [Shellfish] AdvReac Nausea & Verified 10/02/21 09:05 Vomiting & Diarrhea "most food allergies" Allergy throat Uncoded 10/02/21 09:05 swelling alcohol wipes Allergy Unknown Uncoded 10/02/21 09:05 anything with a corn base Allergy Anaphylaxis Uncoded 10/02/21 09:12 corn starch Allergy Anaphylaxis Uncoded 10/02/21 09:05 hand indoor landscape architect,perfume Allergy Anaphylaxis Uncoded 10/02/21 09:05 No Allergy Anaphylaxis Uncoded 10/02/21 09:33 juice,pop,jellos,popsickles water Allergy throat Uncoded 10/02/21 09:05 swelling/tightness Surgical - Exam Vital Signs Temp Pulse Resp BP Pulse Ox 97.0 F L 60 16 133/81 97 10/07/21 09:41 10/07/21 09:41 10/07/21 09:41 10/07/21 09:41 10/07/21 09:41 Physical exam: General: Well-developed, well-nourished HEENT: Normocephalic, sclerae nonicteric Abdomen: Nontender, nondistended Extremities: No edema Neuro: Alert and oriented Assessment and Plan (1) Abdominal pain Narrative/Plan: Will proceed with upper endoscopy Current Visit: Yes Status: Acute Code(s): R10.9 - UNSPECIFIED ABDOMINAL PAIN SNOMED Code(s): 77805208
--- NOTE | 2021-10-07 10:21 | P.PCN ---
Date of Procedure: 10/07/21 Procedure(s) Performed: Preoperative Dx: Abdominal pain Postoperative Dx: Minimal gastritis Procedure: EGD with Bx Anesthesia: Sedation Endoscopist: Dr. Gates Specimens: Duodenum, antrum Endoscopic Procedure: The patient was on the endoscopy table in the left decubitus position. The Olympus gastroscope was inserted into the oropharynx and passed under direct visualization to the region of the third portion of the duodenum. From that point the scope was slowly withdrawn inspecting all surfaces carefully. There were no neoplastic inflammatory or polypoid lesions throughout the duodenum. A biopsy of the duodenum took place. The pylorus was widely patent. The stomach was carefully inspected. There was minimal gastritis. A biopsy of the antrum took place to rule out H. pylori. Retroflexion revealed a normal hiatus. The esophagus was then carefully examined. There were no neoplastic inflammatory or polypoid lesions throughout the visualized esophagus. The patient was then taken to the recovery room in stable condition per anesthesia guidelines. Recommendations: Await biopsy results. Resume diet.
[2021-10-07 10:31] VITALS: BP 119/63; PULSE 75; RESP 18
== END 2021-10-07 11:09 | disposition home or self-care (01) ==
LOC: ORWHC2ENDO 08:32
PROVIDERS: ATTEND Surgery
DX: K29.70 Gastritis, unspecified, without bleeding (principal); K21.9 Gastro-esophageal reflux disease without esophagitis
CPT/HCPCS: 43239; 81025; J1200; J2704

== ENCOUNTER → 2021-10-14 | Outpatient (CLI) | payer BC, OTHER ==
[2021-10-14 15:15] LABS: Appearance,Urine Cloudy (Clear); Bacteria,Urine Rare /hpf; Bilirubin,Urine Negative (Negative); Blood,Urine Small (Negative); Color,Urine Light Yellow; Glucose,Urine (UA) Negative (Negative); Ketones,Urine Negative (Negative); Leukocyte Esterase,Urine Small (Negative); Nitrite,Urine Negative (Negative); PH, Urine 7.5 (5.0-8.0); Protein,Urine Negative (Negative); RBC,Urine 1 /hpf (0-5); Specific Gravity,Urine 1.006 (1.001-1.035); Squamous Epithelial Cell,Urine 6 /hpf (0-4); Urobilinogen,Urine <2.0 mg/dL (<2.0); WBC,Urine 3 /hpf (0-5)
== END | disposition home or self-care (01) ==
LOC: LABWHC1 13:54
PROVIDERS: ATTEND Allergy & Immunology
DX: T78.3XXA Angioneurotic edema, initial encounter (principal); T78.01XA Anaphylactic reaction due to peanuts, initial encounter
CPT/HCPCS: 81001

== ENCOUNTER 2021-11-21 15:27 | Emergency (ER) | payer BC, OTHER ==
[2021-11-21 15:43] VITALS: RESP 18
[2021-11-21] MEDS ORDERED: DEXAMETHASONE SOD PHOSPHATE 4 MG/ML 1 ML VIAL IM STA (16:20)
--- NOTE | 2021-11-21 16:51 | ED ---
Allergic Reaction HPI - General Chief complaint: Allergic Reaction Stated complaint: Allergic reaction, throat tightness Time Seen by Provider: 11/21/21 15:53 Source: patient Mode of arrival: ambulatory Limitations: no limitations - History of Present Illness Initial Comments: Patient is a 36-year-old female who presents to the emergency department with an allergic reaction. Patient reports she is allergic to eggs and ate 2 farm eggs today around 1:45. Patient started to experience a scratching in her throat and indigestion. She does note some redness on her chest but denies skin reaction on other areas of body. She denies fever, chills, headache, congestion, rhinorrhea, shortness of breath, chest pain, palpitations, dizziness, abdominal pain, nausea, vomiting. Patient reports taking 50 mg Benadryl around 2:00 pm. - Related Data Home Medications Medication Instructions Recorded Confirmed Ketorolac 0.5% Ophth Soln [Acular 1 drops RIGHT EYE DAILY 10/02/21 10/07/21 0.5%] Olopatadine HCl [Patanol 0.1%] 1 drop BOTH EYES DAILY 10/02/21 10/07/21 Acetaminophen 325mg Compounded 325 - 650 mg PO Q4-6H PRN MDD 11/21/21 11/21/21 Capsule 3000mg Diphenhydramine 25mg Compounded 25 mg PO HS PRN 11/21/21 11/21/21 Capsule EPINEPHrine [Auvi-Q] 0.3 mg IM ONCE PRN 11/21/21 11/21/21 Famotidine 20mg Compounded Capsule 20 mg PO DAILY 11/21/21 11/21/21 Hydroxyzine 10mg Compounded Capsule 10 - 20 mg PO Q4-6H PRN 11/21/21 11/21/21 Xyzal 5mg Compounded Capsule 5 mg PO DAILY 11/21/21 11/21/21 Previous Rx's Medication Instructions Recorded Dexamethasone [Decadron] 6 mg PO DAILY PRN 5 Days #5 tablet 11/21/21 Allergies Allergy/AdvReac Type Severity Reaction Status Date / Time corn syrup Allergy Anaphylaxis Verified 11/21/21 17:05 oats Allergy Face Verified 11/21/21 17:05 Numbness onion Allergy Anaphylaxis Verified 11/21/21 17:05 peanut Allergy Anaphylaxis Verified 11/21/21 17:05 prednisone Allergy Anaphylaxis/Muscle Verified 11/21/21 17:05 and Bone Pain soybean Allergy Unknown Verified 11/21/21 17:05 Childhood strawberry Allergy Unknown Verified 11/21/21 17:05 tomato Allergy Anaphylaxis Verified 11/21/21 17:05 tree nut Allergy Anaphylaxis Verified 11/21/21 17:05 wheat Allergy Anaphylaxis Verified 11/21/21 17:05 corn AdvReac Anaphylaxis Verified 11/21/21 17:05 gluten AdvReac Nausea & Verified 11/21/21 17:05 Vomiting & Diarrhea shellfish derived [Shellfish] AdvReac Nausea & Verified 11/21/21 17:05 Vomiting & Diarrhea "most food allergies" Allergy Anaphylaxis Uncoded 11/21/21 17:05 alcohol wipes Allergy Unknown Uncoded 11/21/21 17:05 anything with a corn base Allergy Anaphylaxis Uncoded 11/21/21 17:05 corn starch Allergy Anaphylaxis Uncoded 11/21/21 17:05 hand cable television technician,perfume Allergy Anaphylaxis Uncoded 11/21/21 17:05 No Allergy Anaphylaxis Uncoded 11/21/21 17:05 juice,pop,jellos,popsickles water Allergy throat Uncoded 11/21/21 17:05 swelling/tightness Review of Systems ROS Statement: Those systems with pertinent positive or pertinent negative responses have been documented in the HPI. ROS Other: All systems not noted in ROS Statement are negative. Past Medical History Past Medical History: GERD/Reflux, Musculoskeletal Disorder, Skin Disorder Additional Past Medical History / Comment(s): had Covid 08-29-2021,urticaria-Autoimmune condition,hypertension during pregnancies, "severe allergic Rxs to most foods" frequent headaches, thraot swelling and food gets stuck, hx bronchitis, severe itcing,constipation/diarrhea,IBS, "non fatty liver disease", eczema, hypoglycemia, anemia, pt states started in June 2021 intollerance to most foods and environmental allergies History of Any Multi-Drug Resistant Organisms: ESBL Date of last positivie culture/infection: 07/12/18 MDRO Source:: ESBL URINE Past Surgical History: No Surgical Hx Reported Additional Past Surgical History / Comment(s): wisdom teeth Past Anesthesia/Blood Transfusion Reactions: No Reported Reaction Additional Past Anesthesia/Blood Transfusion Reaction / Comment(s): has never had general anesthesia Past Psychological History: Anxiety, Depression Smoking Status: Never smoker Past Alcohol Use History: None Reported Past Drug Use History: None Reported - Past Family History Mother Additional Family Medical History / Comment(s): Hypoglycemia General Exam Limitations: no limitations General appearance: alert, in no apparent distress Head exam: Present: atraumatic, normocephalic, normal inspection Eye exam: Present: normal appearance, PERRL, EOMI. Absent: scleral icterus, conjunctival injection, periorbital swelling ENT exam: Present: normal oropharynx, mucous membranes moist Neck exam: Present: normal inspection Respiratory exam: Present: normal lung sounds bilaterally. Absent: respiratory distress, wheezes, rales, rhonchi, stridor Cardiovascular Exam: Present: regular rate, normal rhythm GI/Abdominal exam: Present: soft. Absent: distended, tenderness, guarding Neurological exam: Present: alert, oriented X3, CN II-XII intact Psychiatric exam: Present: normal affect, normal mood Skin exam: Present: warm, dry, intact, erythema. Absent: normal color (mild erythema over superior aspect of chest ), rash, cyanosis, urticaria Course Vital Signs 11/21/21 15:38 Temperature 100.3 F H Pulse Rate 89 Respiratory 18 Rate Blood Pressure 135/80 O2 Sat by Pulse 100 Oximetry Medical Decision Making - Medical Decision Making This is a 36-year-old female who presents to the emergency department with allergic reaction after eating 2 farm eggs. After speaking with the patient she refuses to take Pepcid both orally and IV in the hospital due to cornstarch allergy. I did allow her to take her home medication of 20 mg compound Pepcid. Patient reports she gets muscle aches when taking methylprednisone but has never attempted to take Decadron. Patient willing to trial Decadron which was given. On reevaluation patient reports that her throat is no longer scratchy and her indigestion and is improving. Patient is afebrile. Patient feels comfortable going home with oral Decadron. Return parameters discussed. Disposition Clinical Impression: Allergic reaction Disposition: HOME SELF-CARE Condition: Good Instructions (If sedation given, give patient instructions): Anaphylaxis (ED) Additional Instructions: Take Decadron as prescribed. Take take your compound Pepcid as prescribed for indigestion. Follow-up with your primary care provider in one to 2 days. Return to the emergency department if you experience any new, concerning, or worsening symptoms. Prescriptions: Dexamethasone [Decadron] 6 mg PO DAILY PRN 5 Days #5 tablet PRN Reason: Allergic Reaction Is patient prescribed a controlled substance at d/c from ED?: No Referrals: Chuy Clark MD [Primary Care Provider] - 1-2 days Time of Disposition: 17:31
[2021-11-21 18:16] VITALS: BP 135/82; PULSE 67; TEMP 98.5
== END 2021-11-21 18:16 | disposition home or self-care (01) ==
LOC: EC 15:27
DX: T78.1XXA Other adverse food reactions, not elsewhere classified, initial encounter (principal); K21.9 Gastro-esophageal reflux disease without esophagitis; F41.9 Anxiety disorder, unspecified; F32.A Depression, unspecified; Z91.012 Allergy to eggs
CPT/HCPCS: 96372; 99283

== ENCOUNTER 2021-12-02 00:05 | Emergency (ER) | payer BC, OTHER ==
[2021-12-02 00:17] VITALS: RESP 22; TEMP 98
[2021-12-02] MEDS ORDERED: DEXAMETHASONE SOD PHOSPHATE 10 MG/ML 1 ML VIAL IM STA (00:25)
--- NOTE | 2021-12-02 00:37 | ED ---
Recheck HPI - General Chief Complaint: Recheck/Abnormal Lab/Rx Stated Complaint: post-allergic reaction Time Seen by Provider: 12/02/21 00:25 Source: patient Mode of arrival: ambulatory Limitations: no limitations - History of Present Illness Initial Comments: 36 year-old female patient presents for possible allergic reaction. States she applied lanolin nipple cream to her hands and believes she may be reacting to it. States she developed throat tightness, redness of her hand, cold chills, teeth chattering, and excessive burping. States symptoms are consistent with previous reactions she has had. She did take 2 compounded benadryl and pepcid at home prior to coming in. States she feels like her symptoms are somewhat improved. She does have allergies to prednisone and methylprednisolone but did tolerate decadron in the past. - Related Data Home Medications Medication Instructions Recorded Confirmed Ketorolac 0.5% Ophth Soln [Acular 1 drop BOTH EYES TID PRN 10/02/21 11/21/21 0.5%] Olopatadine HCl [Patanol 0.1%] 1 drop BOTH EYES DAILY PRN 10/02/21 11/21/21 Acetaminophen 325mg Compounded 325 - 650 mg PO Q4-6H PRN MDD 11/21/21 11/21/21 Capsule 3000mg Diphenhydramine 25mg Compounded 25 mg PO HS PRN 11/21/21 11/21/21 Capsule EPINEPHrine [Auvi-Q] 0.3 mg IM ONCE PRN 11/21/21 11/21/21 Famotidine 20mg Compounded Capsule 20 mg PO DAILY 11/21/21 11/21/21 Hydroxyzine 10mg Compounded Capsule 10 - 20 mg PO Q4-6H PRN 11/21/21 11/21/21 Xyzal 5mg Compounded Capsule 5 mg PO DAILY 11/21/21 11/21/21 Previous Rx's Medication Instructions Recorded Dexamethasone [Decadron] 6 mg PO DAILY PRN 5 Days #5 tablet 11/21/21 Allergies Allergy/AdvReac Type Severity Reaction Status Date / Time corn syrup Allergy Anaphylaxis Verified 12/02/21 00:17 oats Allergy Face Verified 12/02/21 00:17 Numbness onion Allergy Anaphylaxis Verified 12/02/21 00:17 peanut Allergy Anaphylaxis Verified 12/02/21 00:17 prednisone Allergy Anaphylaxis/Muscle Verified 12/02/21 00:17 and Bone Pain soybean Allergy Unknown Verified 12/02/21 00:17 Childhood strawberry Allergy Unknown Verified 12/02/21 00:17 tomato Allergy Anaphylaxis Verified 12/02/21 00:17 tree nut Allergy Anaphylaxis Verified 12/02/21 00:17 wheat Allergy Anaphylaxis Verified 12/02/21 00:17 corn AdvReac Anaphylaxis Verified 12/02/21 00:17 gluten AdvReac Nausea & Verified 12/02/21 00:17 Vomiting & Diarrhea shellfish derived [Shellfish] AdvReac Nausea & Verified 12/02/21 00:17 Vomiting & Diarrhea "most food allergies" Allergy Anaphylaxis Uncoded 12/02/21 00:17 alcohol wipes Allergy Unknown Uncoded 12/02/21 00:17 anything with a corn base Allergy Anaphylaxis Uncoded 12/02/21 00:17 corn starch Allergy Anaphylaxis Uncoded 12/02/21 00:17 hand delinquency prevention officer,perfume Allergy Anaphylaxis Uncoded 12/02/21 00:17 No Allergy Anaphylaxis Uncoded 12/02/21 00:17 juice,pop,jellos,popsickles water Allergy throat Uncoded 12/02/21 00:17 swelling/tightness Review of Systems ROS Statement: Those systems with pertinent positive or pertinent negative responses have been documented in the HPI. ROS Other: All systems not noted in ROS Statement are negative. Past Medical History Past Medical History: GERD/Reflux, Musculoskeletal Disorder, Skin Disorder Additional Past Medical History / Comment(s): had Covid 08-29-2021,urticaria-Autoimmune condition,hypertension during pregnancies, "severe allergic Rxs to most foods" frequent headaches, thraot swelling and food gets stuck, hx bronchitis, severe itcing,constipation/diarrhea,IBS, "non fatty liver disease", eczema, hypoglycemia, anemia, pt states started in June 2021 intollerance to most foods and environmental allergies History of Any Multi-Drug Resistant Organisms: ESBL Date of last positivie culture/infection: 07/12/18 MDRO Source:: ESBL URINE Past Surgical History: No Surgical Hx Reported Additional Past Surgical History / Comment(s): wisdom teeth Past Anesthesia/Blood Transfusion Reactions: No Reported Reaction Additional Past Anesthesia/Blood Transfusion Reaction / Comment(s): has never had general anesthesia Past Psychological History: Anxiety, Depression Smoking Status: Never smoker Past Alcohol Use History: None Reported Past Drug Use History: None Reported - Past Family History Mother Additional Family Medical History / Comment(s): Hypoglycemia General Exam Limitations: no limitations General appearance: alert, in no apparent distress, other (This is a well-de veloped, well-nourished adult female in no acute distress.) ENT exam: Present: normal exam, normal oropharynx, mucous membranes moist Respiratory exam: Present: normal lung sounds bilaterally. Absent: respiratory distress, wheezes, rales, rhonchi, stridor Cardiovascular Exam: Present: regular rate, normal rhythm, normal heart sounds. Absent: systolic murmur, diastolic murmur, rubs, gallop, clicks GI/Abdominal exam: Present: soft, normal bowel sounds. Absent: distended, tenderness, guarding, rebound, rigid Neurological exam: Present: alert, oriented X3, CN II-XII intact Psychiatric exam: Present: normal affect, normal mood Skin exam: Present: warm, dry, intact, normal color. Absent: rash Course Vital Signs 12/02/21 12/02/21 00:11 01:28 Temperature 98 F Pulse Rate 93 78 Respiratory 22 22 Rate Blood Pressure 147/82 131/81 O2 Sat by Pulse 97 100 Oximetry Medical Decision Making - Medical Decision Making 36-year-old female patient with multiple ALLERGIES presents for evaluation of possible ALLERGIC reaction. She used a new cream for her hands. Shortly after developed several symptoms. Physical examination was unremarkable. There is no lip, tongue, or throat swelling appreciated. Lungs are clear to auscultation. She did have frequent belching. She did take Benadryl and Pepcid prior to arrival. Here she was given a dose of Decadron. We did monitor for one hour after the injection. She does feel that her symptoms are improved and she is does feel comfortable being discharged home at this time. She is instructed to follow-up with her primary care physician for recheck in 1-2 days. Return parameters were discussed in detail. She verbalizes understanding and agrees with this plan. My attending is Dr. Baugh. Disposition Clinical Impression: Allergic reaction Disposition: HOME SELF-CARE Condition: Good Instructions (If sedation given, give patient instructions): General Allergic Reaction (ED) Additional Instructions: Follow-up through primary care physician for recheck in 1-2 days. Return for any new, worsening, or concerning symptoms. Is patient prescribed a controlled substance at d/c from ED?: No Referrals: Chuy Clark MD [Primary Care Provider] - 1-2 days Time of Disposition: 01:39
[2021-12-02 01:30] VITALS: BP 131/81; PULSE 78
== END 2021-12-02 01:45 | disposition home or self-care (01) ==
LOC: EC 00:05
DX: L23.3 Allergic contact dermatitis due to drugs in contact with skin (principal); T50.995A Adverse effect of other drugs, medicaments and biological substances, initial encounter; K21.9 Gastro-esophageal reflux disease without esophagitis; F41.9 Anxiety disorder, unspecified; F32.A Depression, unspecified
CPT/HCPCS: 99283; 96372; J1100

== ENCOUNTER 2021-12-27 04:05 | Emergency (ER) | payer OTHER, BC ==
[2021-12-27 04:22] VITALS: BP 146/98; PULSE 69; RESP 20; TEMP 99
[2021-12-27] MEDS ORDERED: FAMOTIDINE 20 MG TAB PO STA (04:46)
[2021-12-27] MEDS ORDERED: dexAMETHasone 2 MG TAB PO STA (04:46)
[2021-12-27] MEDS ORDERED: ONDANSETRON ODT 4 MG TAB PO STA (04:46)
[2021-12-27] MEDS ORDERED: diphenhydrAMINE 50 MG CAP PO STA (04:46)
[2021-12-27] MEDS ORDERED: ONDANSETRON 4 MG ODT STARTER PACK 2 TAB BTL PO STA (04:46)
--- NOTE | 2021-12-27 04:47 | ED ---
Allergic Reaction HPI - General Chief complaint: Allergic Reaction Stated complaint: [facility] allergic reaction Time Seen by Provider: 12/27/21 04:07 Source: patient, RN notes reviewed, old records reviewed Mode of arrival: ambulatory Limitations: no limitations - History of Present Illness Initial Comments: This is a 36-year-old female to the emergency department today. Patient presents today for evaluation regards to ALLERGIC reaction so stuffiness runny nose nausea chest tightness. Patient is bad history of ALLERGIC reaction ALLERGIES to exposure. Patient unsure what exposure was to whether was fumes at work today or some other prior exposure. At this time patient has no complaints of headache chest pain shortness breath or abdominal pain. Feeling improved upon arrival to the ER MD Complaint: allergic reaction -: hour(s) Exposure: unknown Symptoms: hoarseness, nausea Treatment Prior to Arrival: none Previous Allergy History: prior ED visit(s) - Related Data Home Medications Medication Instructions Recorded Confirmed Ketorolac 0.5% Ophth Soln [Acular 1 drop BOTH EYES TID PRN 10/02/21 11/21/21 0.5%] Olopatadine HCl [Patanol 0.1%] 1 drop BOTH EYES DAILY PRN 10/02/21 11/21/21 Acetaminophen 325mg Compounded 325 - 650 mg PO Q4-6H PRN MDD 11/21/21 11/21/21 Capsule 3000mg Diphenhydramine 25mg Compounded 25 mg PO HS PRN 11/21/21 11/21/21 Capsule EPINEPHrine [Auvi-Q] 0.3 mg IM ONCE PRN 11/21/21 11/21/21 Famotidine 20mg Compounded Capsule 20 mg PO DAILY 11/21/21 11/21/21 Hydroxyzine 10mg Compounded Capsule 10 - 20 mg PO Q4-6H PRN 11/21/21 11/21/21 Xyzal 5mg Compounded Capsule 5 mg PO DAILY 11/21/21 11/21/21 Previous Rx's Medication Instructions Recorded Dexamethasone [Decadron] 6 mg PO DAILY PRN 5 Days #5 tablet 11/21/21 Allergies Allergy/AdvReac Type Severity Reaction Status Date / Time corn syrup Allergy Anaphylaxis Verified 12/27/21 04:22 oats Allergy Face Verified 12/27/21 04:22 Numbness onion Allergy Anaphylaxis Verified 12/27/21 04:22 peanut Allergy Anaphylaxis Verified 12/27/21 04:22 prednisone Allergy Anaphylaxis/Muscle Verified 12/27/21 04:22 and Bone Pain soybean Allergy Unknown Verified 12/27/21 04:22 Childhood strawberry Allergy Unknown Verified 12/27/21 04:22 tomato Allergy Anaphylaxis Verified 12/27/21 04:22 tree nut Allergy Anaphylaxis Verified 12/27/21 04:22 wheat Allergy Anaphylaxis Verified 12/27/21 04:22 corn AdvReac Anaphylaxis Verified 12/27/21 04:22 gluten AdvReac Nausea & Verified 12/27/21 04:22 Vomiting & Diarrhea shellfish derived [Shellfish] AdvReac Nausea & Verified 12/27/21 04:22 Vomiting & Diarrhea "most food allergies" Allergy Anaphylaxis Uncoded 12/27/21 04:22 alcohol wipes Allergy Unknown Uncoded 12/27/21 04:22 anything with a corn base Allergy Anaphylaxis Uncoded 12/27/21 04:22 corn starch Allergy Anaphylaxis Uncoded 12/27/21 04:22 hand medical support assistant,perfume Allergy Anaphylaxis Uncoded 12/27/21 04:22 No Allergy Anaphylaxis Uncoded 12/27/21 04:22 juice,pop,jellos,popsickles water Allergy throat Uncoded 12/27/21 04:22 swelling/tightness Review of Systems ROS Statement: Those systems with pertinent positive or pertinent negative responses have been documented in the HPI. ROS Other: All systems not noted in ROS Statement are negative. Past Medical History Past Medical History: GERD/Reflux, Musculoskeletal Disorder, Skin Disorder Additional Past Medical History / Comment(s): had Covid 08-29-2021,urticaria-Autoimmune condition,hypertension during pregnancies, "severe allergic Rxs to most foods" frequent headaches, thraot swelling and food gets stuck, hx bronchitis, severe itcing,constipation/diarrhea,IBS, "non fatty liver disease", eczema, hypoglycemia, anemia, pt states started in June 2021 intollerance to most foods and environmental allergies History of Any Multi-Drug Resistant Organisms: ESBL Date of last positivie culture/infection: 07/12/18 MDRO Source:: ESBL URINE Past Surgical History: No Surgical Hx Reported Additional Past Surgical History / Comment(s): wisdom teeth Past Anesthesia/Blood Transfusion Reactions: No Reported Reaction Additional Past Anesthesia/Blood Transfusion Reaction / Comment(s): has never had general anesthesia Past Psychological History: Anxiety, Depression Smoking Status: Never smoker Past Alcohol Use History: None Reported Past Drug Use History: None Reported - Past Family History Mother Additional Family Medical History / Comment(s): Hypoglycemia General Exam Limitations: no limitations General appearance: alert, in no apparent distress Head exam: Present: atraumatic, normocephalic, normal inspection Eye exam: Present: normal appearance, PERRL, EOMI. Absent: scleral icterus, conjunctival injection, periorbital swelling ENT exam: Present: normal exam, mucous membranes moist Neck exam: Present: normal inspection. Absent: tenderness, meningismus, lymphadenopathy Respiratory exam: Present: normal lung sounds bilaterally. Absent: respiratory distress, wheezes, rales, rhonchi, stridor Cardiovascular Exam: Present: regular rate, normal rhythm, normal heart sounds. Absent: systolic murmur, diastolic murmur, rubs, gallop, clicks GI/Abdominal exam: Present: soft, normal bowel sounds. Absent: distended, tenderness, guarding, rebound, rigid Extremities exam: Present: normal inspection, full ROM, normal capillary refill. Absent: tenderness, pedal edema, joint swelling, calf tenderness Back exam: Present: normal inspection Neurological exam: Present: alert, oriented X3, CN II-XII intact Psychiatric exam: Present: normal affect, normal mood Skin exam: Present: warm, dry, intact, normal color. Absent: rash Course Vital Signs 12/27/21 04:17 Temperature 99 F Pulse Rate 69 Respiratory 20 Rate Blood Pressure 146/98 O2 Sat by Pulse 98 Oximetry - Reevaluation(s) Reevaluation #1: 12/27/21 05:19 Medical record is reviewed Reevaluation #2: 12/27/21 05:19 Patient is improved here in the ER Reevaluation #3: 12/27/21 05:20 Patient informed results and questions are answered Medical Decision Making - Medical Decision Making 36 female with ALLERGIC reaction symptoms resolved. Patient can be discharged home Disposition Clinical Impression: Allergic reaction, Nausea Disposition: HOME SELF-CARE Condition: Good Instructions (If sedation given, give patient instructions): Anaphylaxis (ED), Acute Nausea and Vomiting (ED) Is patient prescribed a controlled substance at d/c from ED?: No Referrals: Chuy Clark MD [Primary Care Provider] - 1-2 days
[2021-12-27] MEDS ORDERED: DEXAMETHASONE SOD PHOSPHATE 10 MG/ML 1 ML VIAL IM STA (04:59)
== END 2021-12-27 05:38 | disposition home or self-care (01) ==
LOC: EC 04:05
DX: T78.40XA Allergy, unspecified, initial encounter (principal); R11.0 Nausea; K21.9 Gastro-esophageal reflux disease without esophagitis; F41.9 Anxiety disorder, unspecified; F32.A Depression, unspecified; Z86.16 Personal history of COVID-19
CPT/HCPCS: 99283; 96372; J1100

== ENCOUNTER 2021-12-27 15:35 | Emergency (ER) | payer BC, OTHER ==
[2021-12-27] MEDS ORDERED: diphenhydrAMINE 50 MG/ML 1 ML VIAL IM STA (16:20)
[2021-12-27] MEDS ORDERED: METOCLOPRAMIDE 5 MG/ML 2 ML VIAL IM STA (16:20)
[2021-12-27] MEDS: SIMETHICONE 80 MG CHEWABLE PO STA ×2 (16:30→16:34)
--- NOTE | 2021-12-27 17:03 | ED ---
General Adult HPI - General Chief complaint: Allergic Reaction Stated complaint: Nausea Time Seen by Provider: 12/27/21 16:04 Source: patient, RN notes reviewed Mode of arrival: ambulatory Limitations: no limitations - History of Present Illness Initial comments: This is a pleasant 36-year-old female who has multiple food ALLERGIES. She states she came in contact with liquid from [employer] when she was at work this morning. 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 Patient then presented here after having nausea, upset stomach, acid reflux type symptoms. Patient was given a dose of dexamethasone, Benadryl, and Pepcid here. Patient was sent home but states she is still having a problem with upset stomach and belching since being here. Was unsure what she takes and she is on multiple medications for ALLERGIES. She also has multiple sensitivities to foods and other products. Vision really denying any pain. No fever. No overt vomiting. No change in bowel movements. No headache, no fever or chills, no changes in vision or hearing, no sore throat or difficulty with speech, no neck pain, no chest pain or shortness of breath, no nausea, no changes in urination or bowel movements, no numbness or tingling, no extremity pain, no skin rashes or lesions. - Related Data Home Medications Medication Instructions Recorded Confirmed Ketorolac 0.5% Ophth Soln [Acular 1 drop BOTH EYES TID PRN 10/02/21 11/21/21 0.5%] Olopatadine HCl [Patanol 0.1%] 1 drop BOTH EYES DAILY PRN 10/02/21 11/21/21 Acetaminophen 325mg Compounded 325 - 650 mg PO Q4-6H PRN MDD 11/21/21 11/21/21 Capsule 3000mg Diphenhydramine 25mg Compounded 25 mg PO HS PRN 11/21/21 11/21/21 Capsule EPINEPHrine [Auvi-Q] 0.3 mg IM ONCE PRN 11/21/21 11/21/21 Famotidine 20mg Compounded Capsule 20 mg PO DAILY 11/21/21 11/21/21 Hydroxyzine 10mg Compounded Capsule 10 - 20 mg PO Q4-6H PRN 11/21/21 11/21/21 Xyzal 5mg Compounded Capsule 5 mg PO DAILY 11/21/21 11/21/21 Previous Rx's Medication Instructions Recorded Dexamethasone [Decadron] 6 mg PO DAILY PRN 5 Days #5 tablet 11/21/21 Allergies Allergy/AdvReac Type Severity Reaction Status Date / Time corn syrup Allergy Anaphylaxis Verified 12/27/21 15:40 oats Allergy Face Verified 12/27/21 15:40 Numbness onion Allergy Anaphylaxis Verified 12/27/21 15:40 peanut Allergy Anaphylaxis Verified 12/27/21 15:40 prednisone Allergy Anaphylaxis/Muscle Verified 12/27/21 15:40 and Bone Pain soybean Allergy Unknown Verified 12/27/21 15:40 Childhood strawberry Allergy Unknown Verified 12/27/21 15:40 tomato Allergy Anaphylaxis Verified 12/27/21 15:40 tree nut Allergy Anaphylaxis Verified 12/27/21 15:40 wheat Allergy Anaphylaxis Verified 12/27/21 15:40 corn AdvReac Anaphylaxis Verified 12/27/21 15:40 gluten AdvReac Nausea & Verified 12/27/21 15:40 Vomiting & Diarrhea shellfish derived [Shellfish] AdvReac Nausea & Verified 12/27/21 15:40 Vomiting & Diarrhea "most food allergies" Allergy Anaphylaxis Uncoded 12/27/21 15:40 alcohol wipes Allergy Unknown Uncoded 12/27/21 15:40 anything with a corn base Allergy Anaphylaxis Uncoded 12/27/21 15:40 corn starch Allergy Anaphylaxis Uncoded 12/27/21 15:40 hand agronomy specialist,perfume Allergy Anaphylaxis Uncoded 12/27/21 15:40 No Allergy Anaphylaxis Uncoded 12/27/21 15:40 juice,pop,jellos,popsickles water Allergy throat Uncoded 12/27/21 15:40 swelling/tightness Review of Systems ROS Statement: Those systems with pertinent positive or pertinent negative responses have been documented in the HPI. ROS Other: All systems not noted in ROS Statement are negative. Past Medical History Past Medical History: GERD/Reflux, Musculoskeletal Disorder, Skin Disorder Additional Past Medical History / Comment(s): had Covid 08-29-2021,urticaria-Autoimmune condition,hypertension during pregnancies, "severe allergic Rxs to most foods" frequent headaches, thraot swelling and food gets stuck, hx bronchitis, severe itcing,constipation/diarrhea,IBS, "non fatty liver disease", eczema, hypoglycemia, anemia, pt states started in June 2021 intollerance to most foods and environmental allergies History of Any Multi-Drug Resistant Organisms: ESBL Date of last positivie culture/infection: 07/12/18 MDRO Source:: ESBL URINE Past Surgical History: No Surgical Hx Reported Additional Past Surgical History / Comment(s): wisdom teeth Past Anesthesia/Blood Transfusion Reactions: No Reported Reaction Additional Past Anesthesia/Blood Transfusion Reaction / Comment(s): has never had general anesthesia Past Psychological History: Anxiety, Depression Smoking Status: Never smoker Past Alcohol Use History: None Reported Past Drug Use History: None Reported - Past Family History Mother Additional Family Medical History / Comment(s): Hypoglycemia General Exam - General Exam Comments Initial Comments: Healthy-appearing female in no significant distress at the time I'm seeing her. Does not appear to be ill or toxic. Vital signs reviewed Limitations: no limitations General appearance: alert, in no apparent distress Head exam: Present: atraumatic, normocephalic, normal inspection Eye exam: Present: normal appearance, PERRL, EOMI. Absent: scleral icterus, conjunctival injection, periorbital swelling ENT exam: Present: normal exam, mucous membranes moist, TM's normal bilaterally, normal external ear exam. Absent: normal oropharynx, mucous membranes dry Neck exam: Present: normal inspection, full ROM. Absent: tenderness, meningismus, lymphadenopathy Respiratory exam: Present: normal lung sounds bilaterally. Absent: respiratory distress, wheezes, rales, rhonchi, stridor Cardiovascular Exam: Present: regular rate, normal rhythm, normal heart sounds. Absent: systolic murmur, diastolic murmur, rubs, gallop, clicks GI/Abdominal exam: Present: soft, hyperactive bowel sounds. Absent: distended, tenderness, guarding, rebound, rigid Extremities exam: Present: normal inspection, full ROM, normal capillary refill. Absent: tenderness, pedal edema, joint swelling, calf tenderness Back exam: Present: normal inspection Neurological exam: Present: alert, oriented X3, CN II-XII intact Psychiatric exam: Present: normal affect, normal mood Skin exam: Present: warm, dry, intact, normal color. Absent: rash Course Vital Signs 12/27/21 15:37 Temperature 99.0 F Pulse Rate 105 H Respiratory 20 Rate Blood Pressure 146/89 O2 Sat by Pulse 97 Oximetry - Reevaluation(s) Reevaluation #1: 12/27/21 17:52 Medical record is reviewed Symptoms are improved here in the emergency department Patient is informed of results and questions answered Patient in no distress Patient symptoms have abated after treatment with metoclopramide and diphenhydramine Medical Decision Making - Medical Decision Making Patient likely with residual symptoms of fluid onboard ALLERGY. No evidence of anaphylaxis. No respiratory distress. No upper airway problems. We will treat conservatively with Reglan and Benadryl. I did reevaluate Patient's symptoms have resolved after treatment here. Patient in no distress at discharge. No complaints. Vital signs stable, patient afebrile. Patient was told to return to the ER for any signs or symptoms worsen. Told to return immediately if any other problems arise. All questions answered. Treatment plan discussed. Patient in agreement Every effort has been made to ensure accuracy of this dictation. However, due to the limitations of electronic medical records and dictation devices, errors in charting still occur. Disposition Clinical Impression: Belching, Food allergy Disposition: HOME SELF-CARE Condition: Good Instructions (If sedation given, give patient instructions): Food Allergy (ED) Additional Instructions: Follow-up with your regular physician as directed. Return to the ER immediately if any symptoms worsen, new symptoms arise, or any other problems develop. Is patient prescribed a controlled substance at d/c from ED?: No Referrals: Chuy Clark MD [Primary Care Provider] - 1-2 days Time of Disposition: 17:54
[2021-12-27 18:08] VITALS: BP 125/75; PULSE 84; RESP 18; TEMP 97.8
== END 2021-12-27 18:38 | disposition home or self-care (01) ==
LOC: EC 15:35
DX: R14.2 Eructation (principal); T78.1XXA Other adverse food reactions, not elsewhere classified, initial encounter; K21.9 Gastro-esophageal reflux disease without esophagitis; F41.9 Anxiety disorder, unspecified; F32.A Depression, unspecified; Z86.16 Personal history of COVID-19
CPT/HCPCS: 99283; 96372 ×2; J1200; J2765

== ENCOUNTER 2022-02-08 11:10 | Emergency (ER) | payer BC, OTHER ==
[2022-02-08 11:28] VITALS: BP 137/76; PULSE 89; RESP 18; TEMP 99.3
[2022-02-08] MEDS ORDERED: DEXAMETHASONE SOD PHOSPHATE 10 MG/ML 1 ML VIAL IM STA (13:37)
--- NOTE | 2022-02-08 13:39 | ED ---
General Adult HPI - General Chief complaint: Allergic Reaction Stated complaint: N/V, Fatigue Time Seen by Provider: 02/08/22 13:30 Source: patient, RN notes reviewed, old records reviewed Mode of arrival: ambulatory Limitations: no limitations - History of Present Illness Initial comments: Patient is a 36-year-old female with past medical history remarkable for multiple ALLERGIES, GERD, skin disorders who presents emergency department concern for an ALLERGIC reaction after getting duster as well as work earlier today. States that after this, she began having itching on her face, tingling in her tongue and lips, burping, increased anxiety. Denies any difficulty breathing or eating. States she took 2 Benadryl as well as 40 mg of Pepcid. This is multiple hours prior to arrival. This is at approximately 8 AM. Presents for further evaluation. His no other acute complaints at this time. Is feeling improved. Denies any history of anaphylaxis. Denies chest pain, shortness breath, abdominal pain. Denies any nausea or vomiting. His no other acute complaints. - Related Data Home Medications Medication Instructions Recorded Confirmed Ketorolac 0.5% Ophth Soln [Acular 1 drop BOTH EYES TID PRN 10/02/21 11/21/21 0.5%] Olopatadine HCl [Patanol 0.1%] 1 drop BOTH EYES DAILY PRN 10/02/21 11/21/21 Acetaminophen 325mg Compounded 325 - 650 mg PO Q4-6H PRN MDD 11/21/21 11/21/21 Capsule 3000mg Diphenhydramine 25mg Compounded 25 mg PO HS PRN 11/21/21 11/21/21 Capsule EPINEPHrine [Auvi-Q] 0.3 mg IM ONCE PRN 11/21/21 11/21/21 Famotidine 20mg Compounded Capsule 20 mg PO DAILY 11/21/21 11/21/21 Hydroxyzine 10mg Compounded Capsule 10 - 20 mg PO Q4-6H PRN 11/21/21 11/21/21 Xyzal 5mg Compounded Capsule 5 mg PO DAILY 11/21/21 11/21/21 Previous Rx's Medication Instructions Recorded Dexamethasone [Decadron] 6 mg PO DAILY PRN 5 Days #5 tablet 11/21/21 Allergies Allergy/AdvReac Type Severity Reaction Status Date / Time corn syrup Allergy Anaphylaxis Verified 02/08/22 11:28 oats Allergy Face Verified 02/08/22 11:28 Numbness onion Allergy Anaphylaxis Verified 02/08/22 11:28 peanut Allergy Anaphylaxis Verified 02/08/22 11:28 prednisone Allergy Anaphylaxis/Muscle Verified 02/08/22 11:28 and Bone Pain soybean Allergy Unknown Verified 02/08/22 11:28 Childhood strawberry Allergy Unknown Verified 02/08/22 11:28 tomato Allergy Anaphylaxis Verified 02/08/22 11:28 tree nut Allergy Anaphylaxis Verified 02/08/22 11:28 wheat Allergy Anaphylaxis Verified 02/08/22 11:28 corn AdvReac Anaphylaxis Verified 02/08/22 11:28 gluten AdvReac Nausea & Verified 02/08/22 11:28 Vomiting & Diarrhea shellfish derived [Shellfish] AdvReac Nausea & Verified 02/08/22 11:28 Vomiting & Diarrhea "most food allergies" Allergy Anaphylaxis Uncoded 02/08/22 11:28 alcohol wipes Allergy Unknown Uncoded 02/08/22 11:28 anything with a corn base Allergy Anaphylaxis Uncoded 02/08/22 11:28 corn starch Allergy Anaphylaxis Uncoded 02/08/22 11:28 hand retail property manager,perfume Allergy Anaphylaxis Uncoded 02/08/22 11:28 No Allergy Anaphylaxis Uncoded 02/08/22 11:28 juice,pop,jellos,popsickles water Allergy throat Uncoded 02/08/22 11:28 swelling/tightness Review of Systems ROS Statement: Those systems with pertinent positive or pertinent negative responses have been documented in the HPI. Review of Systems: CONST: Denies fever EYES: Denies blurry vision ENT: Denies nasal congestion C/V: Denies Chest pain RESP: Denies shortness of breath GI: Denies abdominal pain : Denies dysuria SKIN: Denies rash. MSK: Denies joint pain. NEURO: Denies headache ROS Other: All systems not noted in ROS Statement are negative. Past Medical History Past Medical History: GERD/Reflux, Musculoskeletal Disorder, Skin Disorder Additional Past Medical History / Comment(s): had Covid 08-29-2021,urticaria- Autoimmune condition,hypertension during pregnancies, "severe allergic Rxs to most foods" frequent headaches, thraot swelling and food gets stuck, hx bronchitis, severe itcing,constipation/diarrhea,IBS, "non fatty liver disease", eczema, hypoglycemia, anemia, pt states started in June 2021 intollerance to most foods and environmental allergies History of Any Multi-Drug Resistant Organisms: ESBL Date of last positivie culture/infection: 07/12/18 MDRO Source:: ESBL URINE Past Surgical History: No Surgical Hx Reported Additional Past Surgical History / Comment(s): wisdom teeth Past Anesthesia/Blood Transfusion Reactions: No Reported Reaction Additional Past Anesthesia/Blood Transfusion Reaction / Comment(s): has never had general anesthesia Past Psychological History: Anxiety, Depression Smoking Status: Never smoker Past Alcohol Use History: None Reported Past Drug Use History: None Reported - Past Family History Mother Additional Family Medical History / Comment(s): Hypoglycemia General Exam - General Exam Comments Initial Comments: General: Appears in no acute distress. HEAD: Normal with no signs of head trauma. EYES: PERRLA, EOMI, conjunctiva normal, no discharge. ENT: Hearing grossly intact, normal oropharynx. No stridor auscultated. Tongue is not swollen. No uvular deviation. No floor of mouth swelling. RESPIRATORY: Clear breath sounds bilaterally. No wheezes, rales, or rhonchi. No hypoxia. No increased work of breathing. C/V: Regular rate and rhythm. S1 and S2 auscultated, no edema, peripheral pulses 2+ and intact throughout ABD: Abd is soft, nontender, nondistended EXT: Normal range of motion, no obvious deformity SKIN: No rashes or lesions observed on exposed skin. NEURO: Alert and oriented 4. Able to ambulate without difficulty. No focal deficits. Limitations: no limitations Course Vital Signs 02/08/22 11:20 Temperature 99.3 F Pulse Rate 89 Respiratory 18 Rate Blood Pressure 137/76 O2 Sat by Pulse 98 Oximetry Medical Decision Making - Medical Decision Making Based on patient's presentation and physical exam, I am concerned for mild ALLERGIC reaction to an unknown substance. Likely dust. She currently is asymptomatic. No signs of anaphylaxis. Vital signs are within normal limits and stable. No signs of stridor, respiratory distress, GI symptoms. No skin findings. I did offer the patient a dose of Decadron, which she was seeking which she agreed. She can take Benadryl and famotidine at home which her normal medications for her. She'll return to the emergency department if she has any issues. She was in agreement this plan. I instructed the patient to follow up with their PCP in the next 3 days. I explained that the patient should return to the emergency department if they experience any worsening symptoms. Strict return precautions were discussed with the patient. The patient expressed understanding of these instructions. I answered all questions that the patient had. The patient was discharged home in good condition with their prescriptions and follow up information. Disposition Clinical Impression: Allergic reaction Disposition: HOME SELF-CARE Condition: Good Instructions (If sedation given, give patient instructions): Allergies (ED) Is patient prescribed a controlled substance at d/c from ED?: No Referrals: Chuy Clark MD [Primary Care Provider] - 1-2 days Time of Disposition: 13:40
== END 2022-02-08 14:24 | disposition home or self-care (01) ==
LOC: EC 11:10
DX: T78.49XA Other allergy, initial encounter (principal); K21.9 Gastro-esophageal reflux disease without esophagitis; F41.9 Anxiety disorder, unspecified; F31.9 Bipolar disorder, unspecified; Z91.018 Allergy to other foods; Z86.16 Personal history of COVID-19
CPT/HCPCS: 99283; 96372; J1100

== ENCOUNTER 2022-02-19 16:04 | Emergency (ER) | payer BC, OTHER ==
[2022-02-19] MEDS ORDERED: DEXAMETHASONE SOD PHOSPHATE 10 MG/ML 1 ML VIAL IM STA (17:56)
--- NOTE | 2022-02-19 17:58 | ED ---
General Adult HPI - General Chief complaint: Allergic Reaction Stated complaint: Allergic Reaction Time Seen by Provider: 02/19/22 17:45 Source: patient, RN notes reviewed, old records reviewed Mode of arrival: ambulatory Limitations: no limitations - History of Present Illness Initial comments: Patient is a 36-year-old female with multiple ALLERGIES who presents emergency Department complaining of a possible ALLERGIC reaction. Approximately 3:20 PM, patient was exposed to let grass in [place], which she states she is ALLERGIC to. She states she was somewhat itchy at that time which has since passed. Patient also states she is belching. Denies any rash. Denies any difficulty in breathing. Took 20 mg of famotidine as well as, 25 mg of Benadryl at home. Did not use her EpiPen. Presents seeking IM injection of Decadron, she states this is a blister that seems to help that she is not ALLERGIC to. She denies any episodes of vomiting, diarrhea. Denies any abdominal pain. Denies any chest pain or shortness of breath. Denies any tongue swelling. Has no other acute complaints at this time. I evaluated the patient for an ALLERGIC reaction last week with similar complaints. She is discharged home at that time in stable condition. - Related Data Home Medications Medication Instructions Recorded Confirmed Ketorolac 0.5% Ophth Soln [Acular 1 drop BOTH EYES TID PRN 10/02/21 11/21/21 0.5%] Olopatadine HCl [Patanol 0.1%] 1 drop BOTH EYES DAILY PRN 10/02/21 11/21/21 Acetaminophen 325mg Compounded 325 - 650 mg PO Q4-6H PRN MDD 11/21/21 11/21/21 Capsule 3000mg Diphenhydramine 25mg Compounded 25 mg PO HS PRN 11/21/21 11/21/21 Capsule EPINEPHrine [Auvi-Q] 0.3 mg IM ONCE PRN 11/21/21 11/21/21 Famotidine 20mg Compounded Capsule 20 mg PO DAILY 11/21/21 11/21/21 Hydroxyzine 10mg Compounded Capsule 10 - 20 mg PO Q4-6H PRN 11/21/21 11/21/21 Xyzal 5mg Compounded Capsule 5 mg PO DAILY 11/21/21 11/21/21 Previous Rx's Medication Instructions Recorded Dexamethasone [Decadron] 6 mg PO DAILY PRN 5 Days #5 tablet 11/21/21 Allergies Allergy/AdvReac Type Severity Reaction Status Date / Time corn syrup Allergy Anaphylaxis Verified 02/13/22 18:04 oats Allergy Face Verified 02/13/22 18:04 Numbness onion Allergy Anaphylaxis Verified 02/13/22 18:04 peanut Allergy Anaphylaxis Verified 02/13/22 18:04 prednisone Allergy Anaphylaxis/Muscle Verified 02/13/22 18:04 and Bone Pain soybean Allergy Unknown Verified 02/13/22 18:04 Childhood strawberry Allergy Unknown Verified 02/13/22 18:04 tomato Allergy Anaphylaxis Verified 02/13/22 18:04 tree nut Allergy Anaphylaxis Verified 02/13/22 18:04 wheat Allergy Anaphylaxis Verified 02/13/22 18:04 corn AdvReac Anaphylaxis Verified 02/13/22 18:04 gluten AdvReac Nausea & Verified 02/13/22 18:04 Vomiting & Diarrhea shellfish derived [Shellfish] AdvReac Nausea & Verified 02/13/22 18:04 Vomiting & Diarrhea "most food allergies" Allergy Anaphylaxis Uncoded 02/13/22 18:04 alcohol wipes Allergy Unknown Uncoded 02/13/22 18:04 anything with a corn base Allergy Anaphylaxis Uncoded 02/13/22 18:04 corn starch Allergy Anaphylaxis Uncoded 02/13/22 18:04 hand greeter guest services,perfume Allergy Anaphylaxis Uncoded 02/13/22 18:04 No Allergy Anaphylaxis Uncoded 02/13/22 18:04 juice,pop,jellos,popsickles water Allergy throat Uncoded 02/13/22 18:04 swelling/tightness Review of Systems ROS Statement: Those systems with pertinent positive or pertinent negative responses have been documented in the HPI. Review of Systems: CONST: Denies fever EYES: Denies blurry vision ENT: Denies nasal congestion C/V: Denies Chest pain RESP: Denies shortness of breath GI: Denies abdominal pain : Denies dysuria SKIN: Denies rash. MSK: Denies joint pain. NEURO: Denies headache ROS Other: All systems not noted in ROS Statement are negative. Past Medical History Past Medical History: GERD/Reflux, Musculoskeletal Disorder, Skin Disorder Additional Past Medical History / Comment(s): had Covid 08-29-2021,urticaria-Autoimmune condition,hypertension during pregnancies, "severe allergic Rxs to most foods" frequent headaches, thraot swelling and food gets stuck, hx bronchitis, severe itcing,constipation/diarrhea,IBS, "non fatty liver disease", eczema, hypoglycemia, anemia, pt states started in June 2021 intollerance to most foods and environmental allergies History of Any Multi-Drug Resistant Organisms: ESBL Date of last positivie culture/infection: 07/12/18 MDRO Source:: ESBL URINE Past Surgical History: No Surgical Hx Reported Additional Past Surgical History / Comment(s): wisdom teeth Past Anesthesia/Blood Transfusion Reactions: No Reported Reaction Additional Past Anesthesia/Blood Transfusion Reaction / Comment(s): has never had general anesthesia Past Psychological History: Anxiety, Depression Smoking Status: Never smoker Past Alcohol Use History: None Reported Past Drug Use History: None Reported - Past Family History Mother Additional Family Medical History / Comment(s): Hypoglycemia General Exam - General Exam Comments Initial Comments: General: Appears in no acute distress. HEAD: Normal with no signs of head trauma. EYES: PERRLA, EOMI, conjunctiva normal, no discharge. ENT: Hearing grossly intact, normal oropharynx. No stridor auscultated. No tongue swelling. No uvular deviation. Normal exam. RESPIRATORY: Clear breath sounds bilaterally. No wheezes, rales, or rhonchi. No respiratory distress. No hypoxia. C/V: Regular rate and rhythm. S1 and S2 auscultated, no edema, peripheral pulses 2+ and intact throughout ABD: Abd is soft, nontender, nondistended EXT: Normal range of motion, no obvious deformity SKIN: No rashes or lesions observed on exposed skin. NEURO: Alert and oriented 4. No focal deficits. Limitations: no limitations Course Vital Signs 02/19/22 16:23 Temperature 98 F Pulse Rate 100 Respiratory 16 Rate Blood Pressure 132/86 O2 Sat by Pulse 100 Oximetry Medical Decision Making - Medical Decision Making Niraj and the patient's presentation and physical exam, does appear she may be having a mild ALLERGIC reaction to unknown allergen. She is requesting an IM injection of Decadron at this time which I believe is reasonable. Exposure occurred almost 3 hours ago, and I believe it is safe to discharge her home after the injection. She is having no signs of anaphylaxis at this time. She was in agreement this plan. We discussed proper EpiPen usage, and she is correct not to use it this time. I recommended follow-up with her PCP. Patient knows to use Benadryl and famotidine prior to arrival for any ALLERGIC reactions. Sensory and within normal limits and stable throughout her stay. I instructed the patient to follow up with their PCP in the next 3 days. I explained that the patient should return to the emergency department if they experience any worsening symptoms. Strict return precautions were discussed with the patient. The patient expressed understanding of these instructions. I answered all questions that the patient had. The patient was discharged home in good condition with their prescriptions and follow up information. Disposition Clinical Impression: Allergic reaction Disposition: HOME SELF-CARE Condition: Good Instructions (If sedation given, give patient instructions): Allergies (ED) Is patient prescribed a controlled substance at d/c from ED?: No Referrals: Chuy Clark MD [Primary Care Provider] - 1-2 days Time of Disposition: 18:00
[2022-02-19 18:20] VITALS: BP 130/84; PULSE 92; RESP 18; TEMP 97.8
== END 2022-02-19 18:20 | disposition home or self-care (01) ==
LOC: EC 16:04
DX: T78.40XA Allergy, unspecified, initial encounter (principal); K21.9 Gastro-esophageal reflux disease without esophagitis; Z86.16 Personal history of COVID-19; Z91.09 Other allergy status, other than to drugs and biological substances; Z91.018 Allergy to other foods; Z88.8 Allergy status to other drugs, medicaments and biological substances; Z91.013 Allergy to seafood; Z91.010 Allergy to peanuts; Z79.899 Other long term (current) drug therapy
CPT/HCPCS: 99283; 96372; J1100

== ENCOUNTER → 2022-04-22 | Outpatient (CLI) | payer BC, OTHER ==
[2022-04-23 10:25] LABS: Almond IgE 1.85 kU/L (<0.10); Almond IgE Class CLASS 2; Brazil Nut IgE 0.78 kU/L (<0.10); Brazil Nut IgE Class CLASS 2; Cashew IgE <0.10 kU/L (<0.10); Cashew IgE Class CLASS 0; Hazelnut IgE 1.57 kU/L (<0.10); Hazelnut IgE Class CLASS 2; Lettuce IgE Class CLASS 2; Onion IgE 1.99 kU/L (<0.10); Onion IgE Class CLASS 2; Pecan IgE 0.18 kU/L (<0.10); Pecan IgE Class CLASS 0/1; Pistachio IgE Class CLASS 2
[2022-04-23 10:26] LABS: Casein IgE Class CLASS 0; Egg Yolk IgE Class CLASS 0; Oat IgE Class CLASS 2; Pineapple IgE 1.59 kU/L (<0.10); Pineapple IgE Class CLASS 2
[2022-04-23 10:27] LABS: Chicken IgE Class CLASS 0; Codfish IgE <0.10 kU/L (<0.10); Codfish IgE Class CLASS 0; Crab IgE 0.59 kU/L (<0.10); Crab IgE Class CLASS 1; Green Bean IgE 2.12 kU/L (<0.10); Green Bean IgE Class CLASS 2; Lobster IgE 0.24 kU/L (<0.10); Lobster IgE Class CLASS 0/1; Mussel IgE <0.10 kU/L (<0.10); Mussel IgE Class CLASS 0; Pine Nut, Pignoles IgE 1.91 kU/L (<0.10); Pine Nut, Pignoles IgE Class CLASS 2; Salmon IgE <0.10 kU/L (<0.10); Salmon IgE Class CLASS 0; Shrimp IgE 0.38 kU/L (<0.10); Shrimp IgE Class CLASS 1; Tuna IgE <0.10 kU/L (<0.10); Tuna IgE Class CLASS 0
[2022-04-23 16:43] LABS: Clam IgE <0.10 kU/L; Codfish IgE <0.10 kU/L; Egg White IgE <0.10 kU/L; Peanut IgE 1.12 kU/L; Scallop IgE <0.10 kU/L; Shrimp IgE <0.10 kU/L; Soybean IgE 0.51 kU/L; Walnut IgE (Food) 0.46 kU/L
== END | disposition home or self-care (01) ==
LOC: LABWHC1 16:20
DX: Z91.018 Allergy to other foods (principal)
CPT/HCPCS: 36415; 86003

== ENCOUNTER → 2022-08-21 | Outpatient (CLI) | payer BC, OTHER ==
[2022-08-21 17:34] LABS: Basophils # (A) 0.03 X 10*3/uL (0.00-0.10); Basophils % (A) 0.3 %; Eosinophils # (A) 0.08 X 10*3/uL (0.04-0.35); Eosinophils % (A) 0.7 %; HCT 40.3 % (37.2-46.3); HGB 13.2 g/dL (12.0-15.0); Immature Grans, Automated 0.3 %; Lymphocytes # (A) 2.82 X 10*3/uL (0.90-5.00); Lymphocytes % (A) 24.8 %; MCH 31.2 pg (27.0-32.0); MCHC 32.8 g/dL (32.0-37.0); MCV 95.3 fL (80.0-97.0); Mean Platelet Volume 11.6 fL (9.5-12.2); Monocytes # (A) 0.69 X 10*3/uL (0.20-1.00); Monocytes % (A) 6.1 %; NRBC Per 100 WBC 0 /100 WBCS (0.0-0.0); Neutrophils # (A) 7.71 X 10*3/uL (1.80-7.70); Neutrophils % (A) 67.8 %; Platelet Count 253 X 10*3/uL (140-440); RBC 4.23 X 10*6/uL (4.10-5.20); RDW 13.2 % (11.5-14.5); WBC 11.36 X 10*3/uL (4.50-10.00)
[2022-08-21 21:46] LABS: Ferritin 76.5 ng/mL (10.0-291.0); Iron 106 ug/dL (50-170)
[2022-08-21 22:11] LABS: % Iron Saturation 35.38 (12.00-45.00); ALT 23 U/L (8-44); AST 17 U/L (13-35); African American GFR (CKD) 105.3 (60.0-200.0); Albumin 4.3 g/dL (3.8-4.9); Albumin/Globulin Ratio 1.49 (1.60-3.17); Alkaline Phosphatase 47 U/L (41-126); BUN/Creat Ratio 13.35 Ratio (12.00-20.00); Blood Urea Nitrogen 11.2 mg/dL (9.0-27.0); Carbon Dioxide 23.6 mmol/L (20.0-27.5); Chloride 102 mmol/L (96-109); Globulin 2.9 g/dL (1.6-3.3); Glucose 102 mg/dL (70-110); Non-African American GFR(CKD) 90.8 (60.0-200.0); Potassium 3.8 mmol/L (3.5-5.5); Sodium 141 mmol/L (135-145); Total Iron Binding Capacity 300 ug/dL (228-460); Total Protein 7.1 g/dL (6.2-8.2)
== END | disposition home or self-care (01) ==
LOC: LABWHC1 11:14
PROVIDERS: ATTEND Internal Medicine
DX: Z91.018 Allergy to other foods (principal); N92.6 Irregular menstruation, unspecified
CPT/HCPCS: 36415; 80053; 82306; 82607; 82728; 82746; 83540; 83550; 83735; 84443; 85025

== ENCOUNTER → 2023-02-10 | Outpatient (CLI) | payer BC, OTHER ==
[2023-02-11 01:17] LABS: Basophils # (A) 0.04 X 10*3/uL (0.00-0.10); Basophils % (A) 0.9 %; Eosinophils # (A) 0.25 X 10*3/uL (0.04-0.35); Eosinophils % (A) 5.3 %; HCT 40.1 % (37.2-46.3); HGB 12.7 g/dL (12.0-15.0); Immature Grans, Automated 0.2 %; Lymphocytes # (A) 1.07 X 10*3/uL (0.90-5.00); Lymphocytes % (A) 22.8 %; MCH 30.3 pg (27.0-32.0); MCHC 31.7 g/dL (32.0-37.0); MCV 95.7 fL (80.0-97.0); Mean Platelet Volume 11.1 fL (9.5-12.2); Monocytes # (A) 0.53 X 10*3/uL (0.20-1.00); Monocytes % (A) 11.3 %; NRBC Per 100 WBC 0 /100 WBCS (0.0-0.0); Neutrophils # (A) 2.79 X 10*3/uL (1.80-7.70); Neutrophils % (A) 59.5 %; Platelet Count 251 X 10*3/uL (140-440); RBC 4.19 X 10*6/uL (4.10-5.20); RDW 12.8 % (11.5-14.5); WBC 4.69 X 10*3/uL (4.50-10.00)
[2023-02-11 03:15] LABS: Insulin Level 12.1 mIU/mL (3.0-25.0); Progesterone 0.1 ng/mL
[2023-02-11 03:31] LABS: % Iron Saturation 8.52 (12.00-45.00); Iron 27 ug/dL (50-170); Total Iron Binding Capacity 312 ug/dL (228-460)
[2023-02-11 03:32] LABS: Follicle Stimulating Hormone 3.6 mIU/mL; Glucose 83 mg/dL (70-110)
[2023-02-11 03:48] LABS: Luteinizing Hormone 7.4 mIU/mL
[2023-02-11 04:19] LABS: HCG,Quantitative Serum <3.0 (0.0-6.0)
== END | disposition home or self-care (01) ==
LOC: LABWHC1 13:22
PROVIDERS: ATTEND Obstetrics & Gynecology
DX: N93.9 Abnormal uterine and vaginal bleeding, unspecified (principal)
CPT/HCPCS: 36415; 82306; 82626; 82627; 82670; 82947; 83001; 83002; 83498; 83525; 83540; 83550; 84144; 84146; 84439; 84443; 84481; 84702; 85025

== ENCOUNTER → 2023-04-07 | Outpatient (CLI) | payer BC, OTHER ==
[2023-04-07 14:56] LABS: Basophils % (A) 0 %; Eosinophils # (A) 0.1 k/uL (0-0.7); Eosinophils % (A) 1 %; HCT 36.6 % (34.0-46.0); Lymphocytes # (A) 1.5 k/uL (1.0-4.8); Lymphocytes % (A) 17 %; MCH 31.4 pg (25.0-35.0); MCHC 32.8 g/dL (31.0-37.0); Mean Platelet Volume 7.8; Monocytes # (A) 0.5 k/uL (0-1.0); Monocytes % (A) 6 %; Neutrophils # (A) 6.6 k/uL (1.3-7.7); Neutrophils % (A) 75 %; Platelet Count 241 k/uL (150-450); RBC 3.82 m/uL (3.80-5.40); RDW 13.8 % (11.5-15.5); WBC 8.8 k/uL (3.8-10.6)
[2023-04-07 15:41] LABS: ALT 20 U/L (4-34); AST 22 U/L (14-36); African American GFR (CKD) 75 (>60 ml/min/1.73 sqM); Albumin 3.8 g/dL (3.5-5.0); Albumin/Globulin Ratio 1.2; Alkaline Phosphatase 38 U/L (38-126); Anion Gap 7 mmol/L; Blood Urea Nitrogen 26 mg/dL (7-17); C Reactive Protein <0.5 mg/dL (<1.0); Calcium 8.7 mg/dL (8.4-10.2); Carbon Dioxide 28 mmol/L (22-30); Chloride 104 mmol/L (98-107); Creatine Kinase 48 U/L (30-135); Globulin 3.1 g/dL; Glucose 91 mg/dL (74-99); Non-African American GFR(CKD) 65 (>60 ml/min/1.73 sqM); Potassium 3.9 mmol/L (3.5-5.1); Sodium 139 mmol/L (137-145); Total Bilirubin 0.2 mg/dL (0.2-1.3); Total Protein 6.9 g/dL (6.3-8.2); Uric Acid 6.1 mg/dL (3.7-7.4)
[2023-04-07 15:55] LABS: T4, Free (Free Thyroxine) 0.76 ng/dL (0.78-2.19)
[2023-04-07 17:59] LABS: Erythrocyte Sedimentation Rate 20 mm/hr (0-20)
[2023-04-08 00:32] LABS: Cyclic Citrull Pep IgG Unit <1.5 U/mL (<=3.9); Cyclic Citrullinated Pep IgG Negative
[2023-04-08 02:47] LABS: Rheumatoid Factor, Qnt <15 IU/mL (0-15)
[2023-04-08 10:09] LABS: Angiotensin-1 Converting Enz. 22 U/L (8-52)
[2023-04-08 11:29] LABS: HLA B27 NEGATIVE
== END | disposition home or self-care (01) ==
LOC: LABWHC1 12:46
PROVIDERS: ATTEND Internal Medicine Rheumatology
DX: E03.9 Hypothyroidism, unspecified (principal); E55.9 Vitamin D deficiency, unspecified; M13.0 Polyarthritis, unspecified
CPT/HCPCS: 36415; 80053; 82164; 82306; 82550; 83520; 84439; 84443; 84550; 85025; 85652; 86038; 86140; 86200; 86431; 86812

== ENCOUNTER → 2023-06-14 | Outpatient (CLI) | payer BC, OTHER ==
[2023-06-14 16:04] LABS: BUN/Creat Ratio 24.25 Ratio (12.00-20.00); Blood Urea Nitrogen 19.4 mg/dL (9.0-27.0); Calcium 9.3 mg/dL (8.7-10.3); Carbon Dioxide 27.6 mmol/L (21.6-31.8); Chloride 103 mmol/L (96-109); Glucose 89 mg/dL (70-110); Magnesium 1.8 mg/dL (1.5-2.4); Phosphorus 3.7 mg/dL (2.4-5.1); Potassium 4.2 mmol/L (3.5-5.5); Sodium 138 mmol/L (135-145)
== END | disposition home or self-care (01) ==
LOC: LABWHC1 11:32
PROVIDERS: ATTEND Student in an Organized Health Care Education/Training Program
DX: E63.9 Nutritional deficiency, unspecified (principal)
CPT/HCPCS: 36415; 80048; 83735; 84100

== ENCOUNTER → 2023-10-14 | Outpatient (CLI) | payer BC, OTHER ==
[2023-10-14 18:49] LABS: Basophils # (A) 0.05 X 10*3/uL (0.00-0.10); Basophils % (A) 0.5 %; Eosinophils # (A) 0.13 X 10*3/uL (0.04-0.35); Eosinophils % (A) 1.4 %; HGB 13.2 g/dL (12.0-15.0); Lymphocytes # (A) 1.98 X 10*3/uL (0.90-5.00); Lymphocytes % (A) 21.2 %; MCH 30.5 pg (27.0-32.0); MCHC 32.2 g/dL (32.0-37.0); MCV 94.7 FL (80.0-97.0); Mean Platelet Volume 10.7 FL (9.5-12.2); Monocytes # (A) 0.58 X 10*3/uL (0.20-1.00); Monocytes % (A) 6.2 %; NRBC Per 100 WBC 0 X 10*3/uL (0.00-0.01); Neutrophils # (A) 6.55 X 10*3/uL (1.80-7.70); Neutrophils % (A) 70.3 %; Platelet Count 322 X 10*3/uL (140-440); RBC 4.33 X 10*6/uL (4.10-5.20); RDW 13.2 % (11.5-14.5); WBC 9.33 X 10*3/uL (4.50-10.00)
[2023-10-14 18:58] LABS: BUN/Creat Ratio 20.11 Ratio (12.00-20.00); Blood Urea Nitrogen 18.1 mg/dL (9.0-27.0); Carbon Dioxide 27.4 mmol/L (21.6-31.8); Chloride 102 mmol/L (96-109); Glucose 81 mg/dL (70-110); Sodium 140 mmol/L (135-145)
[2023-10-14 18:59] LABS: ALT 26 U/L (8-44); AST 27 U/L (13-35); Albumin 4.4 g/dL (3.8-4.9); Albumin/Globulin Ratio 1.33 Ratio (1.60-3.17); Alkaline Phosphatase 46 U/L (41-126); Calcium 9.3 mg/dL (8.7-10.3); Globulin 3.3 g/dL (1.6-3.3); Total Bilirubin 0.3 mg/dL (0.3-1.2); Total Protein 7.7 g/dL (6.2-8.2)
[2023-10-15 15:14] LABS: Chol/HDL Ratio 3.09 Ratio; LDL Cholesterol,Calculated 130.4 mg/dL (0.0-131.0)
== END | disposition home or self-care (01) ==
LOC: LABWHC1 14:12
PROVIDERS: ATTEND Internal Medicine
DX: Z00.00 Encounter for general adult medical examination without abnormal findings (principal)
CPT/HCPCS: 36415; 80053; 80061; 84443; 85025

== ENCOUNTER → 2023-10-15 | Outpatient (CLI) | payer BC, OTHER ==
[2023-10-15 19:43] LABS: % Iron Saturation 28.25 (12.00-45.00); Ferritin 88.3 ng/mL (10.0-291.0)
== END | disposition home or self-care (01) ==
LOC: LABWHC1 14:15
PROVIDERS: ATTEND Allergy & Immunology
DX: L50.8 Other urticaria (principal); T78.09XA Anaphylactic reaction due to other food products, initial encounter; M12.9 Arthropathy, unspecified; R53.83 Other fatigue; R06.02 Shortness of breath; R11.2 Nausea with vomiting, unspecified; R42 Dizziness and giddiness; R23.2 Flushing; R10.13 Epigastric pain; Z79.52 Long term (current) use of systemic steroids; X58.XXXA Exposure to other specified factors, initial encounter
CPT/HCPCS: 36415; 82306; 82533; 82607; 82728; 82746; 83520; 83540; 83550; 84207; 84425; 86003; 86618

== ENCOUNTER → 2023-10-23 | Outpatient (CLI) | payer BC ==
[2023-10-23 13:56] LABS: Chol/HDL Ratio 2.81 Ratio; LDL Cholesterol,Calculated 102.1 mg/dL (0.0-131.0)
[2023-10-26 11:52] LABS: Metanephrines 24 Hour,Urine 81 ug/day (52-341); Normetanephrine 24 Hour,Urine 214 ug/day (88-444); Total Metanephrines 24 Hour,Ur 295 ug/day (140-785); Urine Creatinine, 24 Hr 1.2 gm/24h (0.8-1.8)
== END | disposition home or self-care (01) ==
LOC: LABWHC1 08:51
PROVIDERS: ATTEND Internal Medicine
DX: Z00.00 Encounter for general adult medical examination without abnormal findings (principal); T78.09XA Anaphylactic reaction due to other food products, initial encounter; L50.8 Other urticaria; R06.02 Shortness of breath; R11.2 Nausea with vomiting, unspecified; R42 Dizziness and giddiness; R23.2 Flushing; X58.XXXA Exposure to other specified factors, initial encounter
CPT/HCPCS: 36415; 80061; 83835

== ENCOUNTER → 2024-09-04 | Outpatient (CLI) | payer BC ==
[2024-09-05 11:58] LABS: Carrot IgE 0.52 kU/L (<0.10); Carrot IgE Class CLASS 1
== END | disposition home or self-care (01) ==
LOC: LABWHC1 14:19
DX: K90.49 Malabsorption due to intolerance, not elsewhere classified (principal); L50.8 Other urticaria; Z91.018 Allergy to other foods; R23.2 Flushing
CPT/HCPCS: 36415; 82785; 83520; 86003